=== PATIENT | female | born 1960 | race African-American/Black ===

== ENCOUNTER 2016-10-10 17:58 | Emergency (ER) | payer BC, MEDICARE ==
[2016-10-10] MEDS ORDERED: OXYCODONE-ACETAMINOPHEN 5-325 MG TABLET PO ONE (18:25)
--- NOTE | 2016-10-10 18:25 | ER Document Report ---
ED Medical Screen (RME) - General Stated Complaint: BACK PAIN Time seen by provider: 18:21 Mode of Arrival: Ambulatory Information source: Patient TRAVEL OUTSIDE OF THE [place] IN LAST 30 DAYS: No - HPI Patient complains to provider of: BACK PAIN Onset: Other - SINCE BACK SURGERY Aug.10 Onset/Duration: Constant, Worse Quality of pain: Sharp, Stabbing Severity: Severe Pain Level: 5 Associated Symptoms: None Exacerbated by: Movement, Walking Relieved by: Denies Similar symptoms previously: Yes Recently seen / treated by doctor: Yes Notes: 10/10/16 18:24 PT C/O NUMBNESS AND TINGLING DOWN BOTH LEG. PAIN RADIATES TO RIGHT BUTTOCK AND RIGHT LEG. SEEN BY SURGEON September, PAIN WAS THE SAME THEN IT IS NOW. PT WAS TO HAVE BLOOD WORK DONE OUTPATIENT BUT SHE HAS NOT HAD DONE YET. ALSO TO HAVE ANOTHER MRI. 10/10/16 18:25 10/10/16 18:26 - Related Data Smoking: Cigarettes Frequency of alcohol use: Occasional Drug Abuse: None Allergies/Adverse Reactions: Sulfa (Sulfonamide Antibiotics) Allergy (Verified 10/10/16 18:20) Past Medical History - Past Medical History Cardiac Medical History: Reports: Hx Hypercholesterolemia, Hx Hypertension Pulmonary Medical History: Reports: Hx Asthma Denies: Hx Tuberculosis Neurological Medical History: Denies: Hx Seizures Endocrine Medical History: Reports: Hx Diabetes Mellitus Type 1, Hx Diabetes Mellitus Type 2 Past Surgical History: Reports: Hx Breast Surgery, Hx Cholecystectomy, Hx Hysterectomy - Immunizations Hx Diphtheria, Pertussis, Tetanus Vaccination: Yes Physical Exam - Vital signs Vitals: Temp Pulse Resp BP Pulse Ox 97.5 F 127 H 20 143/78 H 95 10/10/16 18:09 10/10/16 18:09 10/10/16 18:09 10/10/16 18:09 10/10/16 18:09 Course - Vital Signs Vital signs: Temp Pulse Resp BP Pulse Ox 97.5 F 127 H 20 143/78 H 95 10/10/16 18:09 10/10/16 18:09 10/10/16 18:09 10/10/16 18:09 10/10/16 18:09 - Laboratory Result Diagrams: 10/10/16 18:30 10/10/16 18:30 Laboratory results interpreted by me: 10/10/16 10/10/16 18:30 18:30 WBC 13.6 H RBC 6.08 H Hgb 15.7 H Hct 47.9 H MCV 79 L MCH 25.8 L RDW 17.5 H Absolute Lymphocytes 5.1 H Potassium 5.1 H Glucose 408 H* Alkaline Phosphatase 146 H Total Protein 8.3 H
[2016-10-10 18:43] LABS: ABSOLUTE BASOPHILS # (AUTO) 0.1 10^3/uL (0.0-0.2); ABSOLUTE EOSINOPHILS # (AUTO) 0.3 10^3/uL (0.0-0.6); ABSOLUTE LYMPHOCYTES (AUTO) 5.1 10^3/uL (0.5-4.7); ABSOLUTE MONOCYTES (AUTO) 0.7 10^3/uL (0.1-1.4); ABSOLUTE NEUT (AUTO) 7.4 10^3/uL (1.7-8.2); BASOPHILS % (AUTO) 0.7 % (0-2); EOSINOPHILS % (AUTO) 2.4 % (0-6); HEMATOCRIT 47.9 % (36.0-47.0); HEMOGLOBIN 15.7 g/dL (12.0-15.5); HGB HCT DIFFERENCE -0.8; LYMPHOCYTES % (AUTO) 37.5 % (13-45); MEAN CORPUSCULAR HEMOGLOBIN 25.8 pg (27.0-33.4); MEAN CORPUSCULAR HGB CONC 32.8 g/dL (32.0-36.0); MEAN CORPUSCULAR VOLUME 79 fl (80-97); RED BLOOD COUNT 6.08 10^6/uL (3.72-5.28); RED CELL DISTRIBUTION WIDTH 17.5 % (11.5-14.0); SEGMENTED NEUTROPHILS % (AUTO) 54.4 % (42-78); WHITE BLOOD COUNT 13.6 10^3/uL (4.0-10.5)
[2016-10-10 18:55] LABS: ALANINE AMINOTRANSFERASE 23 U/L (9-52); ALBUMIN 4.3 g/dL (3.5-5.0); ALKALINE PHOSPHATASE 146 U/L (38-126); ANION GAP 16 (5-19); ASPARTATE AMINO TRANSFERASE 20 U/L (14-36); BILIRUBIN,TOTAL 0.7 mg/dL (0.2-1.3); BLOOD UREA NITROGEN 9 mg/dL (7-20); CARBON DIOXIDE 25 mmol/L (22-30); CHLORIDE 100 mmol/L (98-107); CREATININE RESULT 0.53 mg/dL (0.52-1.25); POTASSIUM 5.1 mmol/L (3.6-5.0); SODIUM 140.9 mmol/L (137-145); TOTAL PROTEIN 8.3 g/dL (6.3-8.2)
[2016-10-10 19:17] LABS: GLUCOSE 408 mg/dL (75-110)
[2016-10-10] MEDS ORDERED: NORMAL SALINE 1000 ML 1,000 ML IV ONE ×2 (19:20→19:50)
[2016-10-10] MEDS ORDERED: ONDANSETRON HCL INJ/PF 4 MG/2 ML SDV IV ONE (19:52)
[2016-10-10] MEDS ORDERED: MORPHINE SULFATE 10 MG/ML INJ IV ONE (19:52)
--- NOTE | 2016-10-10 19:52 | ER Document Report ---
ED General - General Chief Complaint: Low Back Pain Stated Complaint: BACK PAIN Time seen by provider: 19:50 Mode of Arrival: Ambulatory Notes: Patient is a 56-year-old female that comes emergency department for chief complaint of pain in her lower back with radiations of pain to her right buttocks and down her right leg. Patient states she had "back surgery" to repair a ruptured disc on August 10 2016, states that she did follow-up and states she is scheduled to get an MRI, she states she was given hydrocodone pain medication but states it makes her vomit. She was able to drink juice earlier today. She states she has not eaten much. She denies fever or chills, any new numbness or weakness, denies urinary symptoms. Past medical history type II diabetes on metformin and hypertension. TRAVEL OUTSIDE OF THE [place] IN LAST 30 DAYS: No - Related Data Allergies/Adverse Reactions: Sulfa (Sulfonamide Antibiotics) Allergy (Verified 10/10/16 18:20) Past Medical History - General Information source: Patient - Social History Smoking Status: Current Every Day Smoker Chew tobacco use (# tins/day): Yes Frequency of alcohol use: Occasional Drug Abuse: None Family History: Reviewed & Not Pertinent Patient has suicidal ideation: No Patient has homicidal ideation: No - Past Medical History Cardiac Medical History: Reports: Hx Hypercholesterolemia, Hx Hypertension Pulmonary Medical History: Reports: Hx Asthma Denies: Hx Tuberculosis Neurological Medical History: Denies: Hx Seizures Endocrine Medical History: Reports: Hx Diabetes Mellitus Type 1, Hx Diabetes Mellitus Type 2 Renal/ Medical History: Denies: Hx Peritoneal Dialysis Past Surgical History: Reports: Hx Breast Surgery, Hx Cholecystectomy, Hx Hysterectomy - Immunizations Hx Diphtheria, Pertussis, Tetanus Vaccination: Yes Hx Pneumococcal Vaccination: 07/17/13 Review of Systems - Review of Systems Constitutional: No symptoms reported EENT: No symptoms reported Cardiovascular: No symptoms reported Respiratory: No symptoms reported Gastrointestinal: See HPI Genitourinary: No symptoms reported Female Genitourinary: No symptoms reported Musculoskeletal: See HPI Skin: No symptoms reported Hematologic/Lymphatic: No symptoms reported Neurological/Psychological: No symptoms reported Physical Exam - Vital signs Vitals: Temp Pulse Resp BP Pulse Ox 97.5 F 127 H 20 143/78 H 95 10/10/16 18:09 10/10/16 18:09 10/10/16 18:09 10/10/16 18:09 10/10/16 18:09 Interpretation: Normal - General General appearance: Appears well, Alert, Anxious In distress: Mild - Patient appears uncomfortable, lying on her side - HEENT Head: Normocephalic, Atraumatic Eyes: Normal Conjunctiva: Normal Extraocular movements intact: Yes Eyelashes: Normal Pupils: PERRL Nasal: Normal Mouth/Lips: Normal Mucous membranes: Normal Pharynx: Normal Neck: Normal - Respiratory Respiratory status: No respiratory distress Chest status: Nontender Breath sounds: Normal. No: Decreased air movement, Wheezing Chest palpation: Normal - Cardiovascular Rhythm: Regular, Tachycardia Heart sounds: Normal auscultation, S1 appreciated, S2 appreciated Murmur: No - Abdominal Inspection: Normal Distension: No distension Bowel sounds: Normal Tenderness: Nontender. No: Tender, Guarding Organomegaly: No organomegaly - Back Back: Tender - Patient is tender generally in the right paralumbar musculature, right gluteal area, positive straight leg raise on the right side, no saddle anesthesia, no midline tenderness, normal distal neurovascular exam., Scars - Midline lumbar area scar, vertical - Extremities General upper extremity: Normal inspection, Nontender, Normal color, Normal ROM , Normal temperature General lower extremity: Normal inspection, Nontender, Normal color, Normal ROM , Normal temperature, Normal weight bearing. No: Radha's sign - Neurological Neuro grossly intact: Yes Cognition: Normal Orientation: AAOx4 Emilia Coma Scale Eye Opening: Spontaneous Trent Coma Scale Verbal: Oriented [place] Coma Scale Motor: Obeys Commands [place] Coma Scale Total: 15 Speech: Normal Motor strength normal: LUE, RUE, LLE, RLE Sensory: Normal - Psychological Associated symptoms: Anxious - Skin Skin Temperature: Warm Skin Moisture: Dry Skin Color: Normal Course - Re-evaluation Re-evalutation: Patient initially tachycardic, appears to be in pain, holding her right lower back and lying on her side. CBC shows elevated hemoglobin, patient has hyperglycemia, patient reports vomiting after taking the [place]. Patient given 2 L normal saline for dehydration, after this tachycardia resolved. Given insulin, blood glucose trended downwards. Patient was given pain medication, afterwards she was comfortable and ambulating without any difficulty. No neurological deficits on exam, patient admits to no new symptoms other than the pain she has been dealing with chronically after surgery. Patient has a pending MRI. Patient comfortable now, giving alternative to [place], instructed her to follow-up with her back specialist and return for any concerning symptoms. Patient states understanding and agreement. - Vital Signs Vital signs: Temp Pulse Resp BP Pulse Ox 97.4 F 99 16 153/82 H 97 10/10/16 22:10 10/10/16 22:10 10/10/16 22:10 10/10/16 22:10 10/10/16 22:10 - Laboratory Result Diagrams: 10/10/16 18:30 10/10/16 18:30 Laboratory results interpreted by me: 10/10/16 10/10/16 10/10/16 18:30 18:30 20:03 WBC 13.6 H RBC 6.08 H Hgb 15.7 H Hct 47.9 H MCV 79 L MCH 25.8 L RDW 17.5 H Absolute Lymphocytes 5.1 H Potassium 5.1 H Glucose 408 H* POC Glucose 340 H Alkaline Phosphatase 146 H Total Protein 8.3 H Urine Glucose (UA) 10/10/16 10/10/16 21:25 22:07 WBC RBC Hgb Hct MCV MCH RDW Absolute Lymphocytes Potassium Glucose POC Glucose 201 H Alkaline Phosphatase Total Protein Urine Glucose (UA) >=500 H Discharge - Discharge Clinical Impression: Dehydration, Hyperglycemia Lower back pain Qualifiers: Chronicity: chronic Back pain laterality: right Sciatica presence: with sciatica Sciatica laterality: sciatica of right side Qualified Code(s): M54.41 - Lumbago with sciatica, right side Condition: Stable Disposition: HOME, SELF-CARE Additional Instructions: Please continue to rehydrate, take your metformin. Follow-up with your MRI, take the new prescribed pain medication instead of the [place] if needed. Return to the emergency department for any concerning or worsening symptoms including uncontrollable vomiting, fever, dizziness, etc. Prescriptions: Oxycodone HCl/Acetaminophen [Percocet 5-325 mg Tablet] 1 - 2 tab PO Q4H PRN #20 tablet PRN Reason: Referrals: GONZALO BERNARD MD [Primary Care Provider] - Follow up as needed
[2016-10-10] MEDS ORDERED: INSULIN REG, HUMAN 100 UNIT/ML 3 ML VIAL (PYX) SUBCUT ONE (20:14)
[2016-10-10] MEDS ORDERED: HYDROMORPHONE HCL INJ/PF 2 MG/ML AMPULE IM ONE (21:40)
[2016-10-10 21:54] LABS: APPEARANCE,URINE CLOUDY; BILIRUBIN,URINE NEGATIVE (NEGATIVE); GLUCOSE, URINE >=500 mg/dL (NEGATIVE); KETONES,URINE NEGATIVE (NEGATIVE); LEUKOCYTE ESTERASE,URINE NEGATIVE (NEGATIVE); NITRITE,URINE NEGATIVE (NEGATIVE); PROTEIN,URINE NEGATIVE (NEGATIVE); URINE SPECIFIC GRAVITY 1.016; UROBILINOGEN,URINE NEGATIVE mg/dL (<2.0)
[2016-10-10 22:18] VITALS: BP 153/82
== END 2016-10-10 22:18 | disposition home or self-care (01) ==
LOC: ER 17:58
DX: M54.41 Lumbago with sciatica, right side (principal); G89.29 Other chronic pain; E11.65 Type 2 diabetes mellitus with hyperglycemia; E86.0 Dehydration; R00.0 Tachycardia, unspecified; I10 Essential (primary) hypertension; J45.909 Unspecified asthma, uncomplicated; F17.200 Nicotine dependence, unspecified, uncomplicated; Z79.84 Long term (current) use of oral hypoglycemic drugs; Z98.890 Other specified postprocedural states
CPT/HCPCS: 99283; 96372; 96361; 96374; 96375; 36415; 82962; 85025; 80053; 81001; J2270; J1170; J1815; J2405; J7030

== ENCOUNTER 2016-10-16 17:07 | Emergency (ER) | payer BC, MEDICARE ==
[2016-10-16] MEDS ORDERED: ACETAMINOPHEN 325 MG TABLET PO ONE (18:15)
--- NOTE | 2016-10-16 18:16 | ER Document Report ---
ED Medical Screen (RME) - General Stated Complaint: HEAD PAIN Mode of Arrival: Ambulatory Information source: Patient Notes: Patient complains of neck, leg and back pain. No fever. No new injury. Patient complains of urinary frequency. Patient ran out of her pain medication last week. hx; low back surgery for herniated disc 2 months ago I have greeted and performed a rapid initial assessment of this patient. A comprehensive ED assessment and evaluation of the patient, analysis of test results and completion of the medical decision making process will be conducted by additional ED providers. TRAVEL OUTSIDE OF THE [place] IN LAST 30 DAYS: No - Related Data Allergies/Adverse Reactions: Sulfa (Sulfonamide Antibiotics) Allergy (Verified 10/10/16 18:20) Past Medical History - Past Medical History Cardiac Medical History: Reports: Hx Hypercholesterolemia, Hx Hypertension Pulmonary Medical History: Reports: Hx Asthma Denies: Hx Tuberculosis Neurological Medical History: Denies: Hx Seizures Endocrine Medical History: Reports: Hx Diabetes Mellitus Type 1, Hx Diabetes Mellitus Type 2 Renal/ Medical History: Denies: Hx Peritoneal Dialysis Past Surgical History: Reports: Hx Breast Surgery, Hx Cholecystectomy, Hx Hysterectomy - Immunizations Hx Diphtheria, Pertussis, Tetanus Vaccination: Yes Physical Exam - Vital signs Vitals: Temp Pulse Resp BP Pulse Ox 98.2 F 104 H 18 144/110 H 96 10/16/16 18:01 10/16/16 18:01 10/16/16 18:01 10/16/16 18:01 10/16/16 18:01 - Back Back: Tender - Right lower back pain, right SI joint pain Course - Vital Signs Vital signs: Temp Pulse Resp BP Pulse Ox 98.2 F 104 H 18 144/110 H 96 10/16/16 18:01 10/16/16 18:01 10/16/16 18:01 10/16/16 18:01 10/16/16 18:01
[2016-10-16 19:43] LABS: APPEARANCE,URINE SLIGHTLY-CLOUDY; BILIRUBIN,URINE NEGATIVE (NEGATIVE); GLUCOSE, URINE >=500 mg/dL (NEGATIVE); KETONES,URINE TRACE mg/dL (NEGATIVE); LEUKOCYTE ESTERASE,URINE NEGATIVE (NEGATIVE); NITRITE,URINE NEGATIVE (NEGATIVE); PROTEIN,URINE NEGATIVE (NEGATIVE); URINE SPECIFIC GRAVITY 1.016; UROBILINOGEN,URINE NEGATIVE mg/dL (<2.0)
[2016-10-16 21:51] VITALS: BP 155/103
--- NOTE | 2016-10-16 21:52 | ER Document Report ---
ED General - General Chief Complaint: Pain All Over Stated Complaint: HEAD PAIN Time seen by provider: 21:47 Mode of Arrival: Ambulatory Information source: Patient Notes: 56-year-old female presents to ED for pain all over. She states she has a history of chronic back pain leg pain. Much pain all over and [facility] and follow- up with them concerning her chronic pain. She was seen in the emergency room on October 10 and received 20 Percocet which she said she has used all of and she cannot get into her doctor yet. No new or acute problems at this time. States she's not drinking enough water. TRAVEL OUTSIDE OF THE [place] IN LAST 30 DAYS: No - HPI Onset: Other - Chronic Onset/Duration: Persistent Quality of pain: Sharp Severity: Severe Pain Level: 5 Associated symptoms: Nonproductive cough, Other - Body aches all over head back neck legs Exacerbated by: Movement, Walking, Coughing Relieved by: Denies Similar symptoms previously: Yes Recently seen / treated by doctor: Yes - Related Data Allergies/Adverse Reactions: Sulfa (Sulfonamide Antibiotics) Allergy (Verified 10/10/16 18:20) Past Medical History - General Information source: Patient - Social History Smoking Status: Current Every Day Smoker Cigarette use (# per day): Yes - 2 packs a day Chew tobacco use (# tins/day): No Smoking Education Provided: Yes - less than 2 minutes Frequency of alcohol use: None Drug Abuse: None Lives with: Family Family History: Reviewed & Not Pertinent Patient has suicidal ideation: No Patient has homicidal ideation: No - Past Medical History Cardiac Medical History: Reports: Hx Hypercholesterolemia, Hx Hypertension Pulmonary Medical History: Reports: Hx Asthma Neurological Medical History: Reports: None Endocrine Medical History: Reports: Hx Diabetes Mellitus Type 2 Renal/ Medical History: Reports: None Malignancy Medical History: Reports: None GI Medical History: Reports: None Musculoskeltal Medical History: Reports Hx Arthritis, Reports Hx Musculoskeletal Deformity, Reports Hx Musculoskeletal Trauma Skin Medical History: Reports None Psychiatric Medical History: Reports: None Traumatic Medical History: Reports: None Infectious Medical History: Reports: None Past Surgical History: Reports: Hx Breast Surgery, Hx Cholecystectomy, Hx Hysterectomy - Immunizations Hx Diphtheria, Pertussis, Tetanus Vaccination: Yes Hx Pneumococcal Vaccination: 07/17/13 Review of Systems - Review of Systems Constitutional: No symptoms reported EENT: No symptoms reported Cardiovascular: No symptoms reported Respiratory: No symptoms reported Gastrointestinal: No symptoms reported Genitourinary: No symptoms reported Female Genitourinary: No symptoms reported Musculoskeletal: Back pain, Other - Body aches all over chronic pain and chronic back pain neck pain and headache Skin: No symptoms reported Hematologic/Lymphatic: No symptoms reported Neurological/Psychological: No symptoms reported Physical Exam - Vital signs Vitals: Temp Pulse Resp BP Pulse Ox 98.2 F 104 H 18 144/110 H 96 10/16/16 18:01 10/16/16 18:01 10/16/16 18:01 10/16/16 18:01 10/16/16 18:01 Interpretation: Normal - Discussed with patient she states she does not usually have high blood pressure except for when she's has pain. Instructed patient to follow-up with Damián Mercedes - General General appearance: Appears well, Alert - HEENT Head: Normocephalic, Atraumatic Eyes: Normal Pupils: PERRL - Respiratory Respiratory status: No respiratory distress Chest status: Nontender Breath sounds: Normal Chest palpation: Normal - Cardiovascular Rhythm: Regular Heart sounds: Normal auscultation Murmur: No - Abdominal Inspection: Normal Distension: No distension Bowel sounds: Normal Tenderness: Nontender Organomegaly: No organomegaly - Back Back: Normal, Tender, Vertebra tenderness - swelling under the surgical site that patient states has been like this since her last surgery in august,. No: Deformity/step-off, CVA tenderness, Scoliosis, Wounds - Extremities General upper extremity: Normal inspection, Nontender, Normal color, Normal ROM , Normal temperature General lower extremity: Normal inspection, Normal color, Normal ROM, Normal temperature, Normal weight bearing. No: Radha's sign - Neurological Neuro grossly intact: Yes Cognition: Normal Orientation: AAOx4 [place] Coma Scale Eye Opening: Spontaneous Emilia Coma Scale Verbal: Oriented [place] Coma Scale Motor: Obeys Commands Emilia Coma Scale Total: 15 Speech: Normal Motor strength normal: LUE, RUE, LLE, RLE Sensory: Normal - Psychological Associated symptoms: Normal affect, Normal mood - Skin Skin Temperature: Warm Skin Moisture: Dry Skin Color: Normal Course - Re-evaluation Re-evalutation: 10/16/16 22:[address] Slade due to swelling under surgical site with her back pain. Dr. Slade came and examined the patient discussed a history of the swelling to the with the patient. Patient states she has a MRI scheduled for November 15 which is in 2 days. Patient was given Percocet in the ED and a prescription for Percocet and instructed to call her back surgeon and her primary doctor tomorrow back surgeon for more pain medicine the primary doctor for high blood pressure. - Vital Signs Vital signs: Temp Pulse Resp BP Pulse Ox 98.2 F 97 16 155/103 H 98 10/16/16 21:50 10/16/16 21:50 10/16/16 21:50 10/16/16 21:50 10/16/16 21:50 - Laboratory Laboratory results interpreted by me: 10/16/16 18:35 Urine Glucose (UA) >=500 H Urine Ketones TRACE H Urine Blood SMALL H Discharge - Discharge Clinical Impression: Chronic pain Qualifiers: Chronic pain type: chronic pain syndrome Qualified Code(s): G89.4 - Chronic pain syndrome Chronic back pain Qualifiers: Back pain location: low back pain Back pain laterality: unspecified Sciatica presence: with sciatica Sciatica laterality: bilateral sciatica Qualified Code(s ): M54.41 - Lumbago with sciatica, right side Condition: Stable Disposition: HOME, SELF-CARE Additional Instructions: Chronic Pain Control Stress, inactivity, and depression make pain more severe regardless of the cause of the pain. Stress and poor physical condition can cause pain such as headaches and backache. Relaxation: Rest in a quiet place with your eyes closed for 20 minutes twice daily. Concentrate on a pleasant image, or simply "feel" your breathing. Clear your mind. Stress management: Deal with your "stressors." Either take action, or eliminate the stressor from your life. Don't let things hang over you. Accept those things you can't change. Nutrition: Eat small, balanced meals -- don't skip, don't overeat. Meals should be high-carbohydrate, low-sugar, low-fat. Exercise: Exercise helps painful conditions and eases stress. Get 30 minutes of moderate exercise, five days a week. Do an activity that does not flare your pain. Precautions: Pain which continues to disrupt daily activities, or which changes in nature, requires a medical evaluation. Pain Clinic referral is available. We do not manage chronic pain in the Emergency Department. We will try to appropriately help you through an acute flare of your chronic painful condition , but for on-going chronic pain that does not improve, you will need to see your private doctor or spray i painter. We do not provide repeated medication management of chronic painful conditions. If you wish, we can provide the name of local pain management physicians. LOW BACK PAIN: Three out of every four people will have an episode of disabling back pain during their lifetime. Most commonly the pain is due to straining of the muscles and ligaments in the low back. Usual treatment includes: (1) Rest on a firm surface. Avoid lying on your stomach. (2) Ice pack the painful area. After a few days, gentle heat may be used intermittently to relax the area, or ice packs can be continued. (3) Medication may be needed -- muscle relaxers and antiinflammatory medicines are commonly used. (4) As the back improves, exercises are prescribed to strengthen the back and abdominal muscles. Your doctor will advise you on the proper care for your back at each stage in your recovery. You may be better in a few days -- or healing may take several weeks. If new symptoms of a "herniated disc" (radiation of pain, numbness, or tingling down the back of the leg or weakness in the leg) occur, you should be re-examined. Further testing may be necessary. Headache The physician does not feel that the headache you are experiencing has a serious underlying cause. Most headaches are due to emotional stress, with resultant muscle tension (tension headache). Occasionally, headaches are secondary to changes in the blood vessels of the scalp (vascular headache and migraine headache). Sometimes, a headache is the first symptom of another developing illness, such as a viral infection. You have no evidence of stroke, bleeding, meningitis, or other serious cause of your headache. The treatment of headaches varies with the severity and cause of the pain. Not all headaches need pain shots. In fact, there is evidence that using narcotics for headaches may make them worse in the long run. The physician will determine the therapy that's in your best interest. If you develop a fever, if the headache is different from any you've previously experienced, or if the headache progressively worsens, then call your physician at once or go to the emergency room. ORAL NARCOTIC MEDICATION: You have been given a prescription for pain control. This medication is a narcotic. It's best taken with food, as nausea can result if taken on an empty stomach. Don't operate machinery or drive within six hours of taking this medication. Do not combine this medicine with alcohol, or with any medication which can cause sedation (such as cold tablets or sleeping pills) unless you get permission from the physician. Narcotics tend to cause constipation. If possible, drink plenty of fluids and eat a diet high in fiber and fruits. Please be aware that prescription narcotics also have the potential for abuse. People become addicted to these medications because of the general sense of wellbeing that they induce. This feeling along with a significant reduction in tension, anxiety, and aggression provides a stimulating seductive quality to these drugs. Once your pain is under control, we encourage you to discard your unused narcotics. ICE PACKS: Apply ice packs frequently against the painful area. Many different schedules are recommended, such as "20 minutes on, 20 minutes off" or "one hour ice, two hours rest." If you need to work, you may need to go longer between ice treatments. You should plan to have the area ice packed AT LEAST one fourth of the time. The ice should be applied over the wrap, tape, or splint, or over a layer of cloth -- not directly against the skin. Some ice bags have a built-in cloth and can be put directly on the skin. WARM PACKS: After approximately two days, apply gentle heat (such as a heating pad or hot water bottle) for about 20 to 30 minutes about every two hours -- at least four times daily. Warmth and elevation will help you make a more rapid recovery , and will ease the pain considerably. Do not use HOT heat, and never apply heat for longer than 30 minutes. The continuous heat can invisibly damage skin and muscles -- even when no burn is seen on the surface. Damaged muscles can make you MORE sore. FOLLOW-UP CARE: If you have been referred to a physician for follow-up care, call the physician s office for an appointment as you were instructed or within the next two days. If you experience worsening or a significant change in your symptoms, notify the physician immediately or return to the Emergency Department at any time for re-evaluation. Prescriptions: Oxycodone HCl/Acetaminophen [Percocet 5-325 mg Tablet] 1 tab PO Q6HP PRN #15 tablet PRN Reason: Forms: Elevated Blood Pressure, Smoking Cessation Education Referrals: GONZALO BERNARD MD [ACTIVE STAFF] - Follow up as needed
[2016-10-16] MEDS ORDERED: OXYCODONE-ACETAMINOPHEN 5-325 MG TABLET PO ONE (21:56)
== END 2016-10-16 22:07 | disposition home or self-care (01) ==
LOC: ER 17:07
DX: G89.4 Chronic pain syndrome (principal); M54.41 Lumbago with sciatica, right side; M54.42 Lumbago with sciatica, left side; R22.2 Localized swelling, mass and lump, trunk; Z98.890 Other specified postprocedural states; R51 Headache; M54.2 Cervicalgia; I10 Essential (primary) hypertension; J45.909 Unspecified asthma, uncomplicated; E11.9 Type 2 diabetes mellitus without complications; F17.210 Nicotine dependence, cigarettes, uncomplicated; Z71.6 Tobacco abuse counseling; Z88.2 Allergy status to sulfonamides
CPT/HCPCS: 81001; 99283

== ENCOUNTER 2017-11-19 10:13 | Emergency (ER) | payer BC, MEDICARE ==
[2017-11-19] MEDS ORDERED: TRAMADOL HCL 50 MG TABLET PO ONE (10:46)
[2017-11-19 11:15] LABS: ABSOLUTE BASOPHILS # (AUTO) 0.1 10^3/uL (0.0-0.2); ABSOLUTE EOSINOPHILS # (AUTO) 0.2 10^3/uL (0.0-0.6); ABSOLUTE LYMPHOCYTES (AUTO) 4.2 10^3/uL (0.5-4.7); ABSOLUTE MONOCYTES (AUTO) 0.5 10^3/uL (0.1-1.4); EOSINOPHILS % (AUTO) 1.6 % (0-6); HEMATOCRIT 47.3 % (36.0-47.0); HEMOGLOBIN 15.5 g/dL (12.0-15.5); LYMPHOCYTES % (AUTO) 38.3 % (13-45); MEAN CORPUSCULAR HEMOGLOBIN 25.5 pg (27.0-33.4); MEAN CORPUSCULAR HGB CONC 32.8 g/dL (32.0-36.0); MEAN CORPUSCULAR VOLUME 78 fl (80-97); MONOCYTES % (AUTO) 4.2 % (3-13); PLATELET COUNT 319 10^3/uL (150-450); RED BLOOD COUNT 6.07 10^6/uL (3.72-5.28); RED CELL DISTRIBUTION WIDTH 16.7 % (11.5-14.0); SEGMENTED NEUTROPHILS % (AUTO) 54.9 % (42-78); TOTAL CELLS COUNTED % (AUTO) 100 %
[2017-11-19 11:33] LABS: ANION GAP 12 (5-19); BLOOD UREA NITROGEN 13 mg/dL (7-20); CARBON DIOXIDE 22 mmol/L (22-30); CHLORIDE 103 mmol/L (98-107); CREATINE KINASE 50 U/L (30-135); GLUCOSE 387 mg/dL (75-110); POTASSIUM 4.7 mmol/L (3.6-5.0); SODIUM 136.7 mmol/L (137-145)
--- NOTE | 2017-11-19 12:09 | ER Document Report ---
ED Extremity Problem, Lower - General Chief Complaint: Leg Pain Stated Complaint: LEG PAIN Time Seen by Provider: 11/19/17 10:36 Mode of Arrival: Ambulatory Information source: Patient Notes: Patient presents claiming bilateral leg pain. She states that the whole leg hurts on both sides. She denies knowledge of anything that makes it better or worse. She denies any significant swelling or rashes. No known trauma. No fevers. The pain does radiate up both legs. It is a constant aching pain. TRAVEL OUTSIDE OF THE [place] IN LAST 30 DAYS: No - Related Data Allergies/Adverse Reactions: Sulfa (Sulfonamide Antibiotics) Allergy (Verified 11/19/17 10:15) Past Medical History - General Information source: Patient - Social History Smoking Status: Current Every Day Smoker Chew tobacco use (# tins/day): No Frequency of alcohol use: None Drug Abuse: None Family History: Reviewed & Not Pertinent Patient has suicidal ideation: No Patient has homicidal ideation: No - Past Medical History Cardiac Medical History: Reports: Hx Hypercholesterolemia, Hx Hypertension Pulmonary Medical History: Reports: Hx Asthma Denies: Hx Tuberculosis Neurological Medical History: Denies: Hx Seizures Endocrine Medical History: Reports: Hx Diabetes Mellitus Type 1, Hx Diabetes Mellitus Type 2 Renal/ Medical History: Denies: Hx Peritoneal Dialysis Musculoskeltal Medical History: Reports Hx Arthritis, Reports Hx Musculoskeletal Deformity, Reports Hx Musculoskeletal Trauma Past Surgical History: Reports: Hx Breast Surgery, Hx Cholecystectomy, Hx Hysterectomy - Immunizations Hx Diphtheria, Pertussis, Tetanus Vaccination: Yes Hx Pneumococcal Vaccination: 07/17/13 Review of Systems - Review of Systems Constitutional: denies: Chills, Fever Cardiovascular: denies: Chest pain, Palpitations Respiratory: denies: Cough, Short of breath -: Yes All other systems reviewed and negative Physical Exam - Vital signs Vitals: Temp Pulse Resp BP Pulse Ox 98.1 F 99 20 123/73 97 11/19/17 10:24 11/19/17 10:24 11/19/17 10:24 11/19/17 10:24 11/19/17 10:24 Interpretation: Normal - General General appearance: Appears well, Alert In distress: None - HEENT Head: Normocephalic, Atraumatic Eyes: Normal Pupils: PERRL - Respiratory Respiratory status: No respiratory distress Chest status: Nontender Breath sounds: Normal Chest palpation: Normal - Cardiovascular Rhythm: Regular Heart sounds: Normal auscultation Murmur: No - Abdominal Inspection: Normal Distension: No distension Bowel sounds: Normal Tenderness: Nontender Organomegaly: No organomegaly - Back Back: Normal, Nontender - Extremities General upper extremity: Normal inspection, Nontender, Normal color, Normal ROM , Normal temperature General lower extremity: Normal inspection, Nontender, Normal color, Normal ROM , Normal temperature, Normal weight bearing. No: Radha's sign - Neurological Neuro grossly intact: Yes Cognition: Normal Orientation: AAOx4 [place] Coma Scale Eye Opening: Spontaneous [place] Coma Scale Verbal: Oriented [place] Coma Scale Motor: Obeys Commands Emilia Coma Scale Total: 15 Speech: Normal Motor strength normal: LUE, RUE, LLE, RLE Sensory: Normal - Psychological Associated symptoms: Normal affect, Normal mood - Skin Skin Temperature: Warm Skin Moisture: Dry Skin Color: Normal Course - Re-evaluation Re-evalutation: 11/19/17 12:09 pt states she does not take her medicines every day but says she understands she needs to. Pt educated about need to take diabetic meds and consequences of not taking them. - Vital Signs Vital signs: Temp Pulse Resp BP Pulse Ox 98.1 F 99 20 123/73 97 11/19/17 10:24 11/19/17 10:24 11/19/17 10:24 11/19/17 10:24 11/19/17 10:24 - Laboratory Result Diagrams: 11/19/17 11:00 11/19/17 11:00 Laboratory results interpreted by me: 11/19/17 11/19/17 11:00 11:00 WBC 11.0 H RBC 6.07 H Hct 47.3 H MCV 78 L MCH 25.5 L RDW 16.7 H Sodium 136.7 L Creatinine 0.47 L Glucose 387 H Discharge - Discharge Clinical Impression: Hyperglycemia Condition: Stable Disposition: HOME, SELF-CARE Instructions: Hyperglycemia ([facility]) Additional Instructions: Your blood sugar is not being controlled with your current medications. You need to call your primary doctor as soon as possible to discuss how to better control your blood sugars. Please take your diabetes medicines as prescribed. It appears that your leg pain is most likely due to complications from her diabetes. This is why it is very important that you get a hold of your doctor as soon as possible to get better control of your blood sugars. If you do not get better control your blood sugars this can lead to strokes, heart attacks, blindness, kidney failure, and . Prescriptions: Tramadol HCl [Ultram 50 mg Tablet] 50 mg PO Q4HP PRN #12 tab PRN Reason: Forms: Return to Work Referrals: GONZALO BERNARD MD [ACTIVE STAFF] - Follow up tomorrow
[2017-11-19 12:21] VITALS: BP 125/84
== END 2017-11-19 12:16 | disposition home or self-care (01) ==
LOC: ER 10:13
DX: E11.65 Type 2 diabetes mellitus with hyperglycemia (principal); T50.906A Underdosing of unspecified drugs, medicaments and biological substances, initial encounter; Z91.128 Patient's intentional underdosing of medication regimen for other reason; Z91.14 Patient's other noncompliance with medication regimen; M79.604 Pain in right leg; M79.605 Pain in left leg; I10 Essential (primary) hypertension; J45.909 Unspecified asthma, uncomplicated; F17.200 Nicotine dependence, unspecified, uncomplicated; Z88.2 Allergy status to sulfonamides
CPT/HCPCS: 36415; 80048; 82550; 85025; 99283

== ENCOUNTER 2019-12-20 22:29 | Inpatient (IN) | payer BC, MEDICARE ==
[2019-12-20] MEDS ORDERED: PIPERACILLIN/TAZOBACTAM 3.375 GM VIAL IV ONE (23:01)
[2019-12-20] MEDS ORDERED: NORMAL SALINE 1000 ML 1,000 ML IV ONE (23:02)
[2019-12-20] MEDS ORDERED: VANCOMYCIN HCL INJ 1000 MG VIAL IV ONE (23:02)
[2019-12-20 23:14] LABS: INTERNATIONAL RATION (INR) 1.47
[2019-12-20 23:22] LABS: ALBUMIN 3.6 g/dL (3.5-5.0); ALKALINE PHOSPHATASE 335 U/L (38-126); ASPARTATE AMINO TRANSFERASE 33 U/L (14-36); BILIRUBIN,DIRECT 0.5 mg/dL (0.0-0.4); BILIRUBIN,TOTAL 0.5 mg/dL (0.2-1.3); BLOOD UREA NITROGEN 28 mg/dL (7-20); CALCIUM 10.3 mg/dL (8.4-10.2); CHLORIDE 103 mmol/L (98-107); POTASSIUM 3.9 mmol/L (3.6-5.0); TOTAL PROTEIN 7.8 g/dL (6.3-8.2)
--- NOTE | 2019-12-20 23:25 | ER Document Report ---
ED General - General Chief Complaint: High Blood Sugar Stated Complaint: HYPERGLYCEMIA Time Seen by Provider: 12/20/19 22:52 Mode of Arrival: Medic Information source: Emergency Med Personnel Notes: This 59-year-old woman presents to the emergency department with a history of apparently lying in bed for the past 2days became poorly responsive and abnormal breathing with a foul-smelling drainage from an area on her left posterior thigh. She was sent to the emergency department by EMS blood sugar reading "high". TRAVEL OUTSIDE OF THE [place] IN LAST 30 DAYS: No - Related Data Allergies/Adverse Reactions: Sulfa (Sulfonamide Antibiotics) Allergy (Verified 11/19/17 10:15) Past Medical History - Social History Smoking Status: Unknown if Ever Smoked Family History: Reviewed & Not Pertinent - Past Medical History Cardiac Medical History: Reports: Hx Hypercholesterolemia, Hx Hypertension Pulmonary Medical History: Reports: Hx Asthma Denies: Hx Tuberculosis Neurological Medical History: Denies: Hx Seizures Endocrine Medical History: Reports: Hx Diabetes Mellitus Type 1, Hx Diabetes Mellitus Type 2 Renal/ Medical History: Denies: Hx Peritoneal Dialysis Musculoskeletal Medical History: Reports Hx Arthritis, Reports Hx Musculoskeletal Deformity, Reports Hx Musculoskeletal Trauma Past Surgical History: Reports: Hx Breast Surgery, Hx Cholecystectomy, Hx Hysterectomy - Immunizations Hx Diphtheria, Pertussis, Tetanus Vaccination: Yes Hx Pneumococcal Vaccination: 07/17/13 Review of Systems - Review of Systems -: Yes ROS unobtainable due to patient's medical condition - Patient is unresponsive, does not respond to name being called and nonverba Physical Exam - Vital signs Vitals: Resp Pulse Ox 23 H 96 12/20/19 22:32 12/20/19 22:32 - Notes Notes: PHYSICAL EXAMINATION: Physical Exam: General: Obtunded ill-appearing 59-year-old woman obvious kussmaul breathing HEENT: NC/AT, pupils equal round and reactive to light, MM dry,nares clear, oropharynx clear, airway patent Neck: supple, no adenopathy, no masses. Good range of motion, no stiffness Lungs: clear, no wheezing, no rales no rhonchi CVS: Tachycardic rate and rhythm no murmur gallop or rub Abdomen: Soft, active, nontender, no masses, no hepatosplenomegaly Ext: Area under the left proximal thigh below the buttock with a necrotic breakdown of tissue dark brownish-black foul-smelling drainage, + crepitus Neuro: Obtunded, no purposeful movements Skin: Left posterior thigh wound as described above PSYCH: Unable to assess. Course - Re-evaluation Re-evalutation: 12/21/19 00:54 Patient noted to be hypothermic with obtundation and a wound on the posterior thigh which is concerning for a necrotizing fasciitis, gas gangrene. She is a diabetic who kussmaul breathing suggests significant metabolic acidosis., Blood sugar reads high, likely diabetic ketoacidosis. IV fluids 3 L ordered, blood cultures sepsis evaluation performed, lactate blood cultures, IV fluids 3 L, Zosyn 3.375 g, vancomycin [address] scan of the area of concern is being performed. If confirmed is a area of gas, surgical consultation, machine milker involvement. Insulin bolus 10 units, insulin drip, patient's pH 6.9, 2 ampules sodium bicarb ordered. Blood pressure continues to be stable. 12/21/19 01:03 I have contacted the , Mr. Jon Javier, he states that his had a rising on her left thigh area, it was real big and painful. For the past 2 days she has not been eating well and today she became less responsive, tonight stop communicating. This is when he called 911. States that she uses metformin 1000 milligrams twice a day. I have explained to him that his is critically ill with diabetic ketoacidosis and likely sepsis with an infected wound which could be necrotizing. I am waiting the results of the CT scan, she will require hospitalization and intensive care with a possibility of emergent surgery. I have explained that I will contact him once we have final results and a plan. He acknowledges understanding this discussion and will await follow-up. 12/21/19 01:31 I have contacted the general surgeon, Dr. Jackson, relayed my concerns regarding left thigh infection with tracking of what appears to be gas tracking in the tissue. Also contacted the provider for the intensive care services, will see patient in the emergency department. 12/21/19 02:21 Tray Server provider note he would like to have the patient intubated before going up to the ICU. Patient is intubated in the emergency department, post intubation x-ray reveals bilateral patchy infiltrative findings. Given these findings, COVID-19 evaluation/precautions are being taken. I have contacted the family, informing them that Ms. Javier is being taken to the ICU at [facility], likely surgery is to be performed as well as, she is now intubated and on a ventilator. Daughter and state that they would like to be kept abreast of her status, they realize he cannot visit due to the pandemic circumstances. - Vital Signs Vital signs: Temp Pulse Resp BP Pulse Ox 23 H 156/133 H 100 12/20/19 23:01 12/20/19 23:01 12/20/19 23:01 - Laboratory Result Diagrams: 12/20/19 23:11 12/20/19 22:35 Laboratory results interpreted by me: 12/20/19 12/20/19 12/20/19 22:35 22:35 22:35 WBC RBC Hct MCH MCHC RDW Lymphocytes % (Manual) Myelocytes % Promyelocytes % Abs Neuts (Manual) Abs Monocytes (Manual) PT 18.0 H Carbonic Acid ABG pH ABG pCO2 ABG HCO3 ABG Total CO2 ABG O2 Saturation Carbon Dioxide < 10 L* BUN 28 H Creatinine 1.33 H Est GFR ( Amer) 49 L Est GFR (MDRD) Non-Af 41 L Glucose 659 H* Lactic Acid 3.1 H Calcium 10.3 H Magnesium Direct Bilirubin 0.5 H Alkaline Phosphatase 335 H Urine Protein Urine Glucose (UA) Urine Ketones Urine Blood 12/20/19 12/20/19 12/20/19 22:35 22:35 22:50 WBC RBC Hct MCH MCHC RDW Lymphocytes % (Manual) Myelocytes % Promyelocytes % Abs Neuts (Manual) Abs Monocytes (Manual) PT 17.2 H Carbonic Acid ABG pH ABG pCO2 ABG HCO3 ABG Total CO2 ABG O2 Saturation Carbon Dioxide BUN Creatinine Est GFR ( Amer) Est GFR (MDRD) Non-Af Glucose Lactic Acid Calcium Magnesium 3.5 H Direct Bilirubin Alkaline Phosphatase Urine Protein 100 H Urine Glucose (UA) >=500 H Urine Ketones 80 H Urine Blood MODERATE H 12/20/19 12/21/19 23:11 00:09 WBC 37.1 H* RBC 5.66 H Hct 48.7 H MCH 26.8 L MCHC 31.1 L RDW 18.3 H Lymphocytes % (Manual) 10 L Myelocytes % 1 H Promyelocytes % 1 H Abs Neuts (Manual) 29.3 H Abs Monocytes (Manual) 3.7 H PT Carbonic Acid 0.58 L ABG pH 6.94 L* ABG pCO2 19.3 L* ABG HCO3 4.1 L ABG Total CO2 4.7 L ABG O2 Saturation 91.3 L Carbon Dioxide BUN Creatinine Est GFR ( Amer) Est GFR (MDRD) Non-Af Glucose Lactic Acid Calcium Magnesium Direct Bilirubin Alkaline Phosphatase Urine Protein Urine Glucose (UA) Urine Ketones Urine Blood I have reviewed laboratory data and used this information for the treatment decisions regarding the patient. - Diagnostic Test Radiology reviewed: Image reviewed, Reports reviewed - Chest x-ray: Fluffy density noted in the left lung field, etiology CT abdomen and pelvis: Left pos terior medial upper thigh with emphysematous changes and edema gas bubbles noted in the tissue question of necrotizing fasciitis/gas gangrene. - EKG Interpretation by Me Rate: Tachycardia - Rate of 114, right axis deviation, borderline prolonged QT interval. Critical Care Note - Critical Care Note Total time excluding time spent on procedures (mins): 60 - Critical care time spent obtaining history from patient or surrogate, discussions with consultants, development of treatment plan with patient or surrogate, evaluation of patient's response to treatment, examination of patient, ordering and performing treatments and interventions, ordering and review of laboratory studies, re-evaluation of patient's condition, ordering and review of radiographic studies and review of old charts Discharge - Discharge Clinical Impression: Necrotizing subcutaneous infection, Abscess of left thigh DKA (diabetic ketoacidoses) Qualifiers: Diabetes mellitus type: other specified (including AVANI) Diabetes mellitus complication detail: without coma Qualified Code(s): E13.10 - Other specified diabetes mellitus with ketoacidosis without coma Sepsis Qualifiers: Sepsis type: sepsis due to unspecified organism Sepsis acute organ dysfunction status: unspecified Qualified Code(s): A41.9 - Sepsis, unspecified organism Leukocytosis Qualifiers: Leukocytosis type: bandemia Qualified Code(s): D72.825 - Bandemia Hypothermia Qualifiers: Encounter type: initial encounter Qualified Code(s): T68.XXXA - Hypothermia, initial encounter Condition: Critical Disposition: ADMITTED INPATIENT Admitting Provider: Jorge (Tray Server) Unit Admitted: ICU
[2019-12-20 23:40] LABS: APPEARANCE,URINE CLOUDY; BILIRUBIN,URINE NEGATIVE (NEGATIVE); COLOR,URINE YELLOW; GLUCOSE, URINE >=500 mg/dL (NEGATIVE); KETONES,URINE 80 mg/dL (NEGATIVE); PROTEIN,URINE 100 mg/dL (NEGATIVE); URINE SPECIFIC GRAVITY 1.021; UROBILINOGEN,URINE NEGATIVE mg/dL (<2.0)
[2019-12-20] MEDS ORDERED: NORMAL SALINE 1000 ML 2,000 ML IV ONE (23:50)
[2019-12-20 23:51] LABS: HEMATOCRIT 48.7 % (36.0-47.0); HEMOGLOBIN 15.2 g/dL (12.0-15.5); MEAN CORPUSCULAR HEMOGLOBIN 26.8 pg (27.0-33.4); MEAN CORPUSCULAR HGB CONC 31.1 g/dL (32.0-36.0); MEAN CORPUSCULAR VOLUME 86 fl (80-97); PLATELET COUNT 432 10^3/uL (150-450); RED BLOOD COUNT 5.66 10^6/uL (3.72-5.28); RED CELL DISTRIBUTION WIDTH 18.3 % (11.5-14.0)
[2019-12-21] LABS: GLUCOSE 659 mg/dL (75-110)
[2019-12-21 00:01] LABS: CARBON DIOXIDE < 10 mmol/L (22-30)
[2019-12-21 00:07] LABS: WHITE BLOOD COUNT 37.1 10^3/uL (4.0-10.5)
[2019-12-21] MEDS ORDERED: INSULIN REG, HUMAN 100 UNIT/ML 3 ML VIAL (PYX) IV ONE (00:08)
[2019-12-21 00:10] LABS: INTERNATIONAL RATION (INR) 1.39; PROTHROMBIN TIME 17.2 SEC (11.4-15.4)
[2019-12-21] MEDS ORDERED: DEXTROSE 50%-WATER 25 GM/50 ML DISP.SYRIN IV PRN ×6 (00:10→06:47)
[2019-12-21] MEDS ORDERED: DEXTROSE 40% GEL 15 GM TUBE PO PRN ×6 (00:10→06:47)
[2019-12-21] MEDS ORDERED: GLUCAGON,HUMAN RECOMB 1 MG INJ IM PRN ×2 (00:10→06:47)
[2019-12-21 00:11] LABS: PARTIAL THROMBOPLASTIN TIME 25.7 SEC (23.5-35.8)
--- NOTE | 2019-12-21 00:13 | RADIOLOGY REPORT (SQ) ---
CLINICAL INDICATION: Sepsis. TECHNIQUE: A single portable AP view was obtained of the chest at 2306 hours. COMPARISON: None. FINDINGS: The cardiomediastinal silhouette is prominent. The lungs demonstrate chronic interstitial change. Superimposed alveolar space disease left lung base. No evidence of effusion or pneumothorax. The visualized bones are unremarkable. IMPRESSION: Fluffy alveolar space disease left lung base, likely infectious inflammatory.
[2019-12-21 00:16] LABS: ABSOLUTE LYMPHOCYTES# (MANUAL) 4.1 10^3/uL (0.5-4.7); ABSOLUTE MONOCYTES # (MANUAL) 3.7 10^3/uL (0.1-1.4); BAND NEUTROPHILS % (MANUAL) 5 % (3-5); BASOPHILS % (MANUAL) 0 % (0-2); EOSINOPHILS % (MANUAL) 0 % (0-6); LYMPHOCYTES % (MANUAL) 10 % (13-45); MONOCYTES % (MANUAL) 10 % (3-13); SEGMENTED NEUTROPHILS % (MAN) 72 % (42-78); TOTAL CELLS COUNTED 100
[2019-12-21 00:17] LABS: TOXIC GRANULATION 1+; TOXIC VACUOLATION PRESENT
[2019-12-21 00:19] LABS: ANISOCYTOSIS 1+; BURR CELLS SLIGHT; OVALOCYTES SLIGHT; POIKILOCYTOSIS 1+
[2019-12-21 00:20] LABS: HYPOCHROMASIA SLIGHT; PLATELET COMMENT ADEQUATE; TEAR DROP CELLS SLIGHT
[2019-12-21 00:21] LABS: MYELOCYTES % (MANUAL) 1 % (0); PROMYELOCYTES % (MANUAL) 1 % (0)
[2019-12-21 00:21] LABS: ARTERIAL BLOOD BASE EXCESS -26.9 mmol/L; ARTERIAL BLOOD H2CO3 0.58 mmol/L (1.05-1.35); ARTERIAL BLOOD HCO3 4.1 mmol/L (20-24); ARTERIAL BLOOD O2 SATURATION 91.3 % (94-98); ARTERIAL BLOOD PO2 92.9 mmHg (80-100); ARTERIAL BLOOD TOTAL CO2 4.7 mmol/L (21-25)
[2019-12-21 00:23] LABS: ARTERIAL BLOOD FIO2 4L
[2019-12-21 00:24] LABS: ARTERIAL BLOOD PCO2 19.3 mmHg (35-45); ARTERIAL BLOOD PH 6.94 (7.35-7.45)
[2019-12-21] MEDS ORDERED: SODIUM BICARBONATE 8.4% INJ 50 MEQ/50 ML DISP.SYRIN IV ONE ×3 (00:35→18:00)
--- NOTE | 2019-12-21 01:36 | RADIOLOGY REPORT (SQ) ---
EXAM DESCRIPTION: CT ABDOMEN PELVIS WITH IV CONTRAST COMPLETED DATE/TME: 12/20/2019 23:13 CLINICAL HISTORY: 59 years Female, Right upper thigh/buttock draining wound Comparison: CR, chest, 12/20/19. Technique: IV contrast. Coronal and sagittal reformat. This exam was performed according to our departmental dose-optimization program, which includes automated exposure control, adjustment of the mA and/or kV according to patient size and/or use of iterative reconstruction technique. [facility]: Dose Right [facility]: CareDose [facility]: Dose Right [facility]: Teradose 4D [facility]: [email or web address] LIMITATIONS: Motion artifact. 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 Arterial flow reconstitutes at the level of the left external iliac artery. Immediate Surgical referral advised. Moderate patchy airspace opacities of the partially imaged lower lung. Differential etiologies include infectious, inflammatory, and neoplastic processes. Recommend CR/CT surveillance including at 7-12 weeks following initiation of any clinically warranted therapy. 10 x 8 x 5 cm subcutaneous emphysema and edema of the posterior medial left upper leg. Advanced infectious etiology suspected. Gas bubbles could be due to advanced necrotizing component or iatrogenic. NOTE: Side is discordant from given clinical history. Please correlate. Moderate lipomatous collection probably due to a benign soft tissue lipoma at the anterior aspect of the left femoral shaft, deep left gluteal, and of the medial left intermuscular upper leg, partially imaged. Atherosclerotic vascular disease. Cholecystectomy. Degenerative disc disease. Moderate disc bulge/osteophyte complex at the L2-L3 level with mild/moderate spinal or foraminal stenoses. 2 cm umbilical fat only hernia. Prominent left adrenal gland. No ascites. No pneumoperitoneum. No evidence of appendicitis. Likely normal appendix partially discerned. No bowel obstruction. No hydronephrosis or hydroureter. No renal/ureteral stone. No evidence of abdominal aortic aneurysm. Inferior thorax, liver, pancreas, spleen, adrenals, renal system, gastrointestinal tract, pelvic organs, lymphatics, vasculature, and musculoskeleton appear otherwise unremarkable. IMPRESSION: 1. 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 Arterial flow reconstitutes at the level of the left external iliac artery. Immediate Surgical referral advised. 2. Moderate patchy airspace opacities of the partially imaged lower lung. Differential etiologies include infectious, inflammatory, and neoplastic processes. Recommend CR/CT surveillance including at 7-12 weeks following initiation of any clinically warranted therapy. 3. 10 x 8 x 5 cm subcutaneous emphysema and edema of the posterior medial left upper leg. Advanced infectious etiology suspected. Gas bubbles could be due to advanced necrotizing component or iatrogenic. NOTE: Side is discordant from given clinical history. Please correlate. 4. Moderate lipomatous collection probably due to a benign soft tissue lipoma at the anterior aspect of the left femoral shaft , deep left gluteal, and of the medial left intermuscular upper leg, partially imaged.
[2019-12-21] MEDS ORDERED: INSULIN REG, HUMAN 100 UNIT/ML 3 ML VIAL (PYX) ONE ×2 (01:47→03:50)
[2019-12-21] MEDS: NORMAL SALINE 100 ML with INSULIN REGULAR, HUMAN 100 UNIT IV PRN ×4 (02:00→15:07)
[2019-12-21] MEDS: PROPOFOL 1,000 MG/100 ML INFUS..BTL IV PRN ×3 (02:20→18:44)
--- NOTE | 2019-12-21 02:53 | RADIOLOGY REPORT (SQ) ---
CLINICAL INDICATION: Post intubation. Respiratory failure TECHNIQUE: A single portable AP view was obtained of the chest at 0212 hours. COMPARISON: December 20, 2019. FINDINGS: The cardiomediastinal silhouette is prominent but stable. The lungs demonstrate progressive airspace consolidative change bilaterally at the bases left greater than right. There is also an associated interstitial component. No evidence of effusion or pneumothorax. Endotracheal tube tip lower limits of acceptable at 1.8 cm above the sara. IMPRESSION: Endotracheal tube tip lower limits of acceptable, 1.8 cm above the sara. New/progressive areas of airspace consolidative changes with associated interstitial prominence bilaterally.
[2019-12-21 04:19] LABS: ARTERIAL BLOOD BASE EXCESS -21.2 mmol/L; ARTERIAL BLOOD H2CO3 0.72 mmol/L (1.05-1.35); ARTERIAL BLOOD HCO3 7.1 mmol/L (20-24); ARTERIAL BLOOD O2 SATURATION 90.8 % (94-98); ARTERIAL BLOOD PO2 78.6 mmHg (80-100); ARTERIAL BLOOD TOTAL CO2 7.8 mmol/L (21-25)
[2019-12-21 04:21] LABS: ARTERIAL BLOOD FIO2 50%
[2019-12-21 04:22] LABS: ARTERIAL BLOOD PH 7.09 (7.35-7.45)
[2019-12-21] MEDS ORDERED: GLUCAGON,HUMAN RECOMB 1 MG INJ SUBCUT PRN (05:13)
[2019-12-21] MEDS ORDERED: NORMAL SALINE 1000 ML 1,000 ML IV PRN (05:13)
--- NOTE | 2019-12-21 05:13 | CRITICAL CARE ADMISSION REPORT ---
<KAVYA CABELLO - Last Filed: 12/21/19 05:02> HPI Date:: 12/21/19 Time:: 03:00 Reason for ICU Reason:: Profound metabolic acidosis, Respiratory Failure, DKA. HPI: 59-year-old female history of HTN, hypercholesterolemia, DM 2. Patient has had foul-smelling drainage from an area of her left posterior thigh. It was reported that she was bedbound for the past 2 days and became poorly responsive. Upon arrival to the emergency department, her WBC was 37, her glucose was 659 with positive ketones in her urine. She also presented with a severe metabolic acidosis pH: 6.94 HCO3: 4.1. CT of abdomen/pelvis showed subcutaneous emphysema and edema of the posterior medial left upper leg. Possible advanced necrotizing disease. 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 General surgeon, Dr. Jackson was consulted by the emergency room doctor and is following. The ICU team was consulted to evaluate. Upon arrival to the emergency department, patient was obtunded with very shallow and ineffective breathing pattern. She was immediately intubated and placed on mechanical ventilation with prompt transfer to the intensive care unit. Post intubation CXR showed bilateral patchy airspace consolidation. Given these findings, we will valuate further for possible COVID infection. - Diagnosis/Plan (1) Respiratory failure requiring intubation Is this a current diagnosis for this admission?: Yes Plan: \Likely secondary to profound metabolic acidosis with bilateral patchy infiltrates which may represent an underlying lung infection Obtain repeat blood gas now and make vent adjustments accordingly. We will empirically treat with a high minute volume given her profound metabolic acidosis. We will obtain sputum culture to further evaluate for infection including possible COVID-19 infection. Currently oxygenating well. (2) DKA (diabetic ketoacidoses) Qualifiers: Diabetes mellitus type: due to underlying condition Diabetes mellitus complication detail: without coma Qualified Code(s): E08.10 - Diabetes mellitus due to underlying condition with ketoacidosis without coma Is this a current diagnosis for this admission?: Yes Plan: Profound metabolic acidosis with sodium bicarb of 4.1. 2 amps of sodium bicarb given in the ED. Repeat stat renal panel with possible addition of sodium bicarb drip if no significant improvement. Continue insulin drip protocol Start aggressive fluid resuscitation with normal saline at 200 mL an hour. Follow potassium and electrolytes closely. Replete as needed. (3) Necrotizing subcutaneous infection Is this a current diagnosis for this admission?: Yes Plan: Possible gas gangrene seen on CT scan. Surgery (Dr. Jackson) consulted for evaluation. This most likely represents the infective source which prompted her high blood sugar and subsequent DKA. Past Medical History Cardiac Medical History: Reports: Hyperlipidema, Hypertension Pulmonary Medical History: Reports: Asthma Denies: Tuberculosis Neurological Medical History: Denies: Seizures Endocrine Medical History: Reports: Diabetes Mellitus Type 1, Diabetes Mellitus Type 2 Musculoskeltal Medical History: Reports: Arthritis Past Surgical History Past Surgical History: Reports: Cholecystectomy, Hysterectomy Social/Family History - Social History Lives with: Spouse/Significant other Smoking Status: Unknown if Ever Smoked Frequency of Alcohol Use: None Hx Recreational Drug Use: No Hx Prescription Drug Abuse: No - Medication/Allergies Home Medications: Oxycodone HCl/Acetaminophen [Oxycodone-Acetaminophen 10-325] 1 tab PO 5XDP PRN 12/21/19 Allergies/Adverse Reactions: Sulfa (Sulfonamide Antibiotics) Allergy (Verified 11/19/17 10:15) Review of Systems ROS unobtainable: Due to endotracheal tube, Due to mental status Physical Exam Vital Signs: Temp Pulse Resp BP Pulse Ox 23 H 156/133 H 100 12/20/19 23:01 12/20/19 23:01 12/20/19 23:01 Intake & Output 12/19/19 12/20/19 12/21/19 06:59 06:59 06:59 Intake Total 1000 Balance 1000 Weight 75 kg Weight/Height Weight 75 kg Height 5 ft 3 in General appearance: PRESENT: obese Head exam: PRESENT: atraumatic, normocephalic Eye exam: PRESENT: EOMI, PERRLA Teeth exam: PRESENT: other - Missing teeth Neck exam: PRESENT: full ROM Respiratory exam: PRESENT: other - Very Poor air movement prior to intubation. Now with deminished breath sounds bilaterally. Cardiovascular exam: PRESENT: RRR, +S1, +S2 Pulses: PRESENT: normal carotid pulses, normal radial pulses, other - Right lower extremity without Dorsalis Pedis or Posterior tibial pulses. GI/Abdominal exam: PRESENT: normal bowel sounds, soft. ABSENT: distended Extremities exam: PRESENT: other - Left inner thigh abscess with very purulant and necrotic appearing discharge. Neurological exam: PRESENT: CN II-XII grossly intact, other - Sedated, RASS 0- negative 2 Skin exam: PRESENT: other - Erythemetous over Left inner thigh. Lower extremity cool. Tubes/Lines: PRESENT: Endotracheal Tube, Central Line, Nasogastic Tube Laboratory/Radiographs Laboratory Results: 12/20/19 23:11 12/20/19 12/20/19 12/20/19 22:35 22:35 22:35 WBC Cancelled RBC Cancelled Hgb Cancelled Hct Cancelled MCV Cancelled MCH Cancelled MCHC Cancelled RDW Cancelled Plt Count Cancelled Seg Neutrophils % Cancelled Carbonic Acid HCO3/H2CO3 Ratio ABG pH ABG pCO2 ABG pO2 ABG HCO3 ABG O2 Saturation ABG Base Excess FiO2 Sodium 137.2 Potassium 3.9 Chloride 103 Carbon Dioxide < 10 L* Anion Gap Not Reportable BUN 28 H Creatinine 1.33 H Est GFR ( Amer) 49 L Glucose 659 H* Lactic Acid 3.1 H Calcium 10.3 H Magnesium Total Bilirubin 0.5 AST 33 Alkaline Phosphatase 335 H Total Protein 7.8 Albumin 3.6 Urine Color Urine Appearance Urine pH Ur Specific [place] Urine Protein Urine Glucose (UA) Urine Ketones Urine Blood Urine RBC (Auto) 12/20/19 12/20/19 12/20/19 22:35 22:50 23:11 WBC 37.1 H* RBC 5.66 H Hgb 15.2 Hct 48.7 H MCV 86 MCH 26.8 L MCHC 31.1 L RDW 18.3 H Plt Count 432 Seg Neutrophils % Not Reportable Carbonic Acid HCO3/H2CO3 Ratio ABG pH ABG pCO2 ABG pO2 ABG HCO3 ABG O2 Saturation ABG Base Excess FiO2 Sodium Potassium Chloride Carbon Dioxide Anion Gap BUN Creatinine Est GFR ( Amer) Glucose Lactic Acid Calcium Magnesium 3.5 H Total Bilirubin AST Alkaline Phosphatase Total Protein Albumin Urine Color YELLOW Urine Appearance CLOUDY Urine pH 5.0 Ur Specific [place] 1.021 Urine Protein 100 H Urine Glucose (UA) >=500 H Urine Ketones 80 H Urine Blood MODERATE H Urine RBC (Auto) 1 12/21/19 00:09 WBC RBC Hgb Hct MCV MCH MCHC RDW Plt Count Seg Neutrophils % Carbonic Acid 0.58 L HCO3/H2CO3 Ratio 7:1 ABG pH 6.94 L* ABG pCO2 19.3 L* ABG pO2 92.9 ABG HCO3 4.1 L ABG O2 Saturation 91.3 L ABG Base Excess -26.9 FiO2 4L Sodium Potassium Chloride Carbon Dioxide Anion Gap BUN Creatinine Est GFR ( Amer) Glucose Lactic Acid Calcium Magnesium Total Bilirubin AST Alkaline Phosphatase Total Protein Albumin Urine Color Urine Appearance Urine pH Ur Specific [place] Urine Protein Urine Glucose (UA) Urine Ketones Urine Blood Urine RBC (Auto) Impressions: Abdomen/Pelvis CT 12/20/19 23:13 IMPRESSION: 1. 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 Arterial flow reconstitutes at the level of the left external iliac artery. Immediate Surgical referral advised. 2. Moderate patchy airspace opacities of the partially imaged lower lung. Differential etiologies include infectious, inflammatory, and neoplastic processes. Recommend CR/CT surveillance including at 7-12 weeks following initiation of any clinically warranted therapy. 3. 10 x 8 x 5 cm subcutaneous emphysema and edema of the posterior medial left upper leg. Advanced infectious etiology suspected. Gas bubbles could be due to advanced necrotizing component or iatrogenic. NOTE: Side is discordant from given clinical history. Please correlate. 4. Moderate lipomatous collection probably due to a benign soft tissue lipoma at the anterior aspect of the left femoral shaft , deep left gluteal, and of the medial left intermuscular upper leg, partially imaged. Chest X-Ray 12/21/19 02:20 IMPRESSION: Endotracheal tube tip lower limits of acceptable, 1.8 cm above the sara. New/progressive areas of airspace consolidative changes with associated interstitial prominence bilaterally. All labs, radiographs, diagnostic studies and EKGs were personally reviewed: Yes In addition, reports of radiographic and diagnostic studies were read: Yes Critical Time Critical Time (minutes): 85 -: The care of a critically ill patient is dynamic. This note represents a static moment in the admission process. Orders and treatments may be given simultaneous ly and urgently, and time is not agency service representative of the treatment process. This patient requires Critical Care secondary to life threatening organ or limb dysfunction. Without Critical Care services, the patient is at risk for increased mortality and morbidity. <LORENZO HERNANDEZ - Last Filed: 12/21/19 08:35> HPI - . Plan Summary: I personally saw examined and reviewed this patient's case. Received valuable information from the overnight critical care team, KATHIE CABELLO, agree with plans finding and care. She has a complex illness which required further input by me. Please see my addended note which accompanies this note. Physical Exam Vital Signs: Temp Pulse Resp BP Pulse Ox 100.0 F 118 H 27 H 155/69 H 99 12/21/19 05:48 12/21/19 05:48 12/21/19 03:33 12/21/19 03:33 12/21/19 03:33 Intake & Output 12/20/19 12/21/19 12/22/19 06:59 06:59 06:59 Intake Total 1061 7 Output Total 950 Balance 111 7 Weight 67.3 kg Weight/Height Weight 67.3 kg Height 5 ft 3 in Laboratory/Radiographs Laboratory Results: 12/21/19 06:27 12/21/19 05:50 12/20/19 12/20/19 12/20/19 22:35 22:35 22:35 WBC Cancelled RBC Cancelled Hgb Cancelled Hct Cancelled MCV Cancelled MCH Cancelled MCHC Cancelled RDW Cancelled Plt Count Cancelled Seg Neutrophils % Cancelled Carbonic Acid HCO3/H2CO3 Ratio ABG pH ABG pCO2 ABG pO2 ABG HCO3 ABG O2 Saturation ABG Base Excess FiO2 Sodium 137.2 Potassium 3.9 Chloride 103 Carbon Dioxide < 10 L* Anion Gap Not Reportable BUN 28 H Creatinine 1.33 H Est GFR ( Amer) 49 L Glucose 659 H* Lactic Acid 3.1 H Calcium 10.3 H Magnesium Ferritin Total Bilirubin 0.5 AST 33 Alkaline Phosphatase 335 H C-Reactive Protein Total Protein 7.8 Albumin 3.6 Urine Color Urine Appearance Urine pH Ur Specific [place] Urine Protein Urine Glucose (UA) Urine Ketones Urine Blood Urine RBC (Auto) 12/20/19 12/20/19 12/20/19 22:35 22:50 23:11 WBC 37.1 H* RBC 5.66 H Hgb 15.2 Hct 48.7 H MCV 86 MCH 26.8 L MCHC 31.1 L RDW 18.3 H Plt Count 432 Seg Neutrophils % Not Reportable Carbonic Acid HCO3/H2CO3 Ratio ABG pH ABG pCO2 ABG pO2 ABG HCO3 ABG O2 Saturation ABG Base Excess FiO2 Sodium Potassium Chloride Carbon Dioxide Anion Gap BUN Creatinine Est GFR ( Amer) Glucose Lactic Acid Calcium Magnesium 3.5 H Ferritin Total Bilirubin AST Alkaline Phosphatase C-Reactive Protein Total Protein Albumin Urine Color YELLOW Urine Appearance CLOUDY Urine pH 5.0 Ur Specific [place] 1.021 Urine Protein 100 H Urine Glucose (UA) >=500 H Urine Ketones 80 H Urine Blood MODERATE H Urine RBC (Auto) 1 12/21/19 12/21/19 12/21/19 00:09 03:11 04:10 WBC RBC Hgb Hct MCV MCH MCHC RDW Plt Count Seg Neutrophils % Carbonic Acid 0.58 L 0.72 L HCO3/H2CO3 Ratio 7:1 9:1 ABG pH 6.94 L* 7.09 L* ABG pCO2 19.3 L* 24.0 L ABG pO2 92.9 78.6 L ABG HCO3 4.1 L 7.1 L ABG O2 Saturation 91.3 L 90.8 L ABG Base Excess -26.9 -21.2 FiO2 4L 50% Sodium Potassium Chloride Carbon Dioxide Anion Gap BUN Creatinine Est GFR ( Amer) Glucose Lactic Acid 2.8 H Calcium Magnesium Ferritin Total Bilirubin AST Alkaline Phosphatase C-Reactive Protein Total Protein Albumin Urine Color Urine Appearance Urine pH Ur Specific [place] Urine Protein Urine Glucose (UA) Urine Ketones Urine Blood Urine RBC (Auto) 12/21/19 12/21/19 12/21/19 05:50 05:50 06:27 WBC 33.7 H* RBC 5.40 H Hgb 14.4 Hct 43.7 MCV 81 D MCH 26.6 L MCHC 32.9 RDW 17.4 H Plt Count 393 Seg Neutrophils % Not Reportable Carbonic Acid HCO3/H2CO3 Ratio ABG pH ABG pCO2 ABG pO2 ABG HCO3 ABG O2 Saturation ABG Base Excess FiO2 Sodium 141.1 Potassium 2.6 L* D Chloride 114 H Carbon Dioxide 12 L Anion Gap 15 BUN 31 H Creatinine 0.99 Est GFR ( Amer) > 60 Glucose 333 H Lactic Acid 1.9 Calcium 9.2 Magnesium 2.0 D Ferritin 1290.00 H Total Bilirubin AST Alkaline Phosphatase C-Reactive Protein 566.2 H Total Protein Albumin Urine Color Urine Appearance Urine pH Ur Specific [place] Urine Protein Urine Glucose (UA) Urine Ketones Urine Blood Urine RBC (Auto) Impressions: Abdomen/Pelvis CT 12/20/19 23:13 IMPRESSION: 1. 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 Arterial flow reconstitutes at the level of the left external iliac artery. Immediate Surgical referral advised. 2. Moderate patchy airspace opacities of the partially imaged lower lung. Differential etiologies include infectious, inflammatory, and neoplastic processes. Recommend CR/CT surveillance including at 7-12 weeks following initiation of any clinically warranted therapy. 3. 10 x 8 x 5 cm subcutaneous emphysema and edema of the posterior medial left upper leg. Advanced infectious etiology suspected. Gas bubbles could be due to advanced necrotizing component or iatrogenic. NOTE: Side is discordant from given clinical history. Please correlate. 4. Moderate lipomatous collection probably due to a benign soft tissue lipoma at the anterior aspect of the left femoral shaft , deep left gluteal, and of the medial left intermuscular upper leg, partially imaged. KUB X-Ray 12/21/19 00:00 IMPRESSION: Tip of an enteric tube is at the distal esophagus. Consider 16 cm advancement or replacement. Chest X-Ray 12/21/19 02:20 IMPRESSION: Endotracheal tube tip lower limits of acceptable, 1.8 cm above the sara. New/progressive areas of airspace consolidative changes with associated interstitial prominence bilaterally. Critical Time -: The care of a critically ill patient is dynamic. This note represents a static moment in the admission process. Orders and treatments may be given simultaneously and urgently, and time is not agency service representative of the treatment process. This patient requires Critical Care secondary to life threatening organ or limb dysfunction. Without Critical Care services, the patient is at risk for increased mortality and morbidity.
[2019-12-21] MEDS ORDERED: PHARMACY COMMUNICATION ORDER MC NR (05:15)
[2019-12-21] MEDS ORDERED: VANCOMYCIN HCL 0 MG in DEXTROSE 5%-WATER 250 ML IV NR (05:45)
[2019-12-21] MEDS ORDERED: NORMAL SALINE INJ/PF 0.9% 10 ML SDV IV PRN (05:51)
[2019-12-21] MEDS ORDERED: PIPERACILLIN/TAZOBACTAM 3.375 GM VIAL IV PRN (05:52)
[2019-12-21] MEDS ORDERED: PIPERACILLIN SODIUM/TAZOBACTAM 3.375 GM in NORMAL SALINE 100 ML IV SCH (06:00)
--- NOTE | 2019-12-21 06:06 | Operative Report ---
Bedside Procedure - History of Present Illness History of Present Illness: Procedure: Central line placement Indication: IV fluids, lab draws, vasoactive medications. Procedure inclined railway operator: Rahul Jacob Attending physician: Dr. Patel Consent: The procedure was performed emergently and the permission was implied because of the emergent nature. Procedure summary: The [facility] central line insertion practice form was completed by RN. A timeout was performed. My hands were washed immediately prior to the procedure. I wore surgical cap, mask with protective eyewear, full gown and sterile gloves throughout the procedure. The patient was placed in Trendelenburg position. RIGHT chest region was prepped using chlorhexidine scrub and draped in sterile fashion using a full drape. Sterile probe cover was placed on ultrasound probe. The medial and lateral heads of the sternocleidomastoid muscle were identified as was the carotid pulse. The internal jugular vein was identified using ultrasound. Anesthesia was achieved over the vein using 4 cc of 1% lidocaine. Using real-time out of plane guidance, the introducer needle was inserted into the internal jugular vein under direct ultrasound visualization. Venous blood was withdrawn. The syringe was removed and a guidewire was advanced into the introducer needle. The guidewire was visualized in the internal jugular vein by ultrasound. A small incision was made at the skin surface with a scalpel and the introducer needle was exchanged for a dilator over the guidewire. After appropriate dilation was obtained, the dilator was exchanged over a wire for a 7 [place], 20 cm central venous catheter. The wire was removed and the catheter was sutured in place at 15 cm. A IO patch was placed and a sterile Sorbaview shield was placed over the catheter at the insertion site. The patient tolerated the procedure well without any hemodynamic compromise. At time of procedure completion, all ports aspirated and flushed properly. Postprocedure x-ray shows central line at the SVC/RA junction. Estimated blood loss is approximately 5 cc. Indication for Procedure: IV Medications, blood draws, vasoactive medications. Date: 12/21/19 Provider: RAHUL JACOB - Central Line Right Internal jugular Time completed: 04:00 Central line pre-insertion: Sterile PPE donned, Chloraprep applied, Sterile drapes applied Central line lumen type: Triple Anesthetic type: 1% Lidocaine mL's of anesthesia: 3 Ultrasound guided: Yes CM at insertion site: 15 Line secured with sutures: Yes Central line post-insertion: Blood return from lumens, Biopatch applied, Sutured, Sterile dressing applied, Position confirmed w/ CXR Number of attempts: 1 Complications: No
--- NOTE | 2019-12-21 06:13 | Operative Report ---
Bedside Procedure - History of Present Illness History of Present Illness: Indication: Acute respiratory failure Procedure beam press operator: Kavya Jacob Attending physician: Dr. Patel Consent: Physician consent obtained due to the emergent nature of this procedure. Patient's family was notified immediately after the patient was stabilized. Procedure summary: A timeout was performed. My hands were washed immediately prior to the procedure. I were surgical cap, mask with protective eyewear, gown and gloves throughout the procedure. The patient was placed on a quality assurance monitor chassis including continuous pulse oximetry. Rapid sequence intubation was conducted. The patient received 10 mg of etomidate for induction and 100 mg of rocuronium for adequate paralysis. Cricoid pressure was maintained from time induction agent was given the time of cuff balloon inflation. Using a size 4 Smooth laryngoscope and a size 1.5 endotracheal tube with stylette, the patient was intubated on the second attempt. The stylette was removed and the cuff balloon was inflated. Appropriate endotracheal tube position was confirmed by direct visualization of vocal cord passage, CO2 colorimetric indicator and symmetric breath sounds. The tube was secured at 23 centimeters at the lips. Post intubation chest x-ray confirms ET tube at 23 centimeters above the sara. Indication for Procedure: Respiratory Failure Date: 12/21/19 Provider: KAVYA JACOB
--- NOTE | 2019-12-21 06:22 | RADIOLOGY REPORT (SQ) ---
EXAM DESCRIPTION: XR ABDOMEN 1 VIEW (KUB) COMPLETED DATE/TME: 12/21/2019 00:00 CLINICAL HISTORY: 59 years Female, NG PLACEMENT COMPARISON: None. NUMBER OF VIEWS/TECHNIQUE: 1 FINDINGS: Tip of an enteric tube is at the distal esophagus. Consider 16 cm advancement or replacement. Central line tip at the cavoatrial junction. Moderate mixed interstitial and airspace opacities consistent with concurrent CR chest. IMPRESSION: Tip of an enteric tube is at the distal esophagus. Consider 16 cm advancement or replacement.
--- NOTE | 2019-12-21 06:30 | RADIOLOGY REPORT (SQ) ---
EXAM DESCRIPTION: XR CHEST 1 VIEW COMPLETED DATE/TME: 12/21/2019 00:00 CLINICAL HISTORY: 59 years Female, RIJ Central Line Placement COMPARISON: One day prior. NUMBER OF VIEWS/TECHNIQUE: 1/AP FINDINGS: Enteric tube tip is at the distal esophagus; recommend 15 cm advancement or replacement. Adequate appearing endotracheal tube. Adequate appearing right jugular central line. Moderate mixed interstitial and airspace opacity includes moderate patchy opacity of the left mid lung field. Stable. Atherosclerotic vascular disease. Normal cardiac silhouette size. No pneumothorax. Stable bony thorax. IMPRESSION: Enteric tube tip is at the distal esophagus; recommend 15 cm advancement or replacement.
[2019-12-21] MEDS ORDERED: PIPERACILLIN/TAZOBACTAM 3.375 GM VIAL IV ONE (06:36)
[2019-12-21 06:37] LABS: ANION GAP 15 (5-19); BLOOD UREA NITROGEN 31 mg/dL (7-20); CALCIUM 9.2 mg/dL (8.4-10.2); CARBON DIOXIDE 12 mmol/L (22-30); CHLORIDE 114 mmol/L (98-107); GLUCOSE 333 mg/dL (75-110)
[2019-12-21] MEDS: HEPARIN SOD (PORCINE) 5,000 UNIT/ML 1 ML VIAL SUBCUT SCH ×3 (06:55→21:42)
[2019-12-21 06:57] LABS: HEMATOCRIT 43.7 % (36.0-47.0); HEMOGLOBIN 14.4 g/dL (12.0-15.5); MEAN CORPUSCULAR HEMOGLOBIN 26.6 pg (27.0-33.4); MEAN CORPUSCULAR HGB CONC 32.9 g/dL (32.0-36.0); PLATELET COUNT 393 10^3/uL (150-450); RED CELL DISTRIBUTION WIDTH 17.4 % (11.5-14.0)
[2019-12-21 07:06] LABS: INTERNATIONAL RATION (INR) 1.27; PARTIAL THROMBOPLASTIN TIME 31.8 SEC (23.5-35.8)
[2019-12-21 07:34] LABS: MEAN CORPUSCULAR VOLUME 81 fl (80-97)
[2019-12-21 07:37] LABS: POTASSIUM 2.6 mmol/L (3.6-5.0)
[2019-12-21 07:39] LABS: C-REACTIVE PROTEIN 566.2 mg/L (<10.0)
--- NOTE | 2019-12-21 07:40 | PDOC CONSULTATION ---
Consultation Consult Date: 12/21/19 Provider Consulted: SURGICAL SURGICALIST MD Consult reason:: Necrotizing soft tissue infection of the left thigh. History of Present Illness Admission Date/PCP: 12/21/19 02:27 History of Present Illness: CHANELL FOSS is a 59 year old female seen in consultation at the request of the hospitalist service. This is a patient who presented in acute distress. She was intubated in the emergency department. She has bilateral patchy infiltrates on chest x-ray, concerning for Covid 19. Her blood sugars are greater than 600, concerning for DKA. She also has a large, necrotic area of her left, inner, posterior thigh concerning for ongoing necrotizing soft tissue infection. Currently the patient is intubated and sedated. Review of systems is impossible to obtain due to her intubation with sedation. All history is gleaned from the medical record and the nursing staff. Past Medical History Cardiac Medical History: Reports: Hyperlipidema, Hypertension Pulmonary Medical History: Reports: Asthma Denies: Tuberculosis Neurological Medical History: Denies: Seizures Endocrine Medical History: Reports: Diabetes Mellitus Type 1, Diabetes Mellitus Type 2 Musculoskeltal Medical History: Reports: Arthritis Past Surgical History Past Surgical History: Reports: Cholecystectomy, Hysterectomy Social History Lives with: Spouse/Significant other Smoking Status: Unknown if Ever Smoked Electronic Cigarette use?: No Frequency of Alcohol Use: None Hx Recreational Drug Use: No Hx Prescription Drug Abuse: No Family History Family History: Reviewed & Not Pertinent Parental Family History Reviewed: Yes Children Family History Reviewed: Yes Sibling(s) Family History Reviewed.: Yes Medication/Allergy Home Medications: Amlodipine Besylate 1 tab PO DAILY 07/13/13 Hydrocodone Bit/Acetaminophen [Hydrocodon-Acetaminophen 5-500] 1 each PO TID PRN 07/13/13 Linagliptin [Tradjenta] 5 mg PO DAILY 07/13/13 Metformin HCl [Glumetza] 1,000 mg PO BID 07/13/13 Pregabalin [Lyrica 75 mg Capsule] 75 mg PO BID 07/13/13 Ramipril [Altace 2.5 mg Capsule] 1 cap PO DAILY 07/13/13 Hydrocodone Bit/Acetaminophen [Vicodin 5-500 mg Tablet ([facility])] 1 - 2 tab PO ASDIR PRN 07/17/13 Cephalexin Monohydrate [Keflex 500 mg Capsule] 500 mg PO Q6 #28 capsule 03/10/14 Clindamycin HCl [Cleocin 150 mg Capsule] 150 mg PO Q6 #56 capsule 05/19/16 Fluconazole [Diflucan] 150 mg PO ONCE PRN #1 tablet 05/19/16 Hydrocodone/Acetaminophen [[place] 5-325 mg Tablet] 1 - 2 tab PO ASDIR #15 tablet 05/19/16 Oxycodone HCl/Acetaminophen [Percocet 5-325 mg Tablet] 1 - 2 tab PO Q4H PRN #20 tablet 10/10/16 Oxycodone HCl/Acetaminophen [Percocet 5-325 mg Tablet] 1 tab PO Q6HP PRN #15 tablet 10/16/16 Tramadol HCl [Ultram 50 mg Tablet] 50 mg PO Q4HP PRN #12 tab 11/19/17 Allergies/Adverse Reactions: Sulfa (Sulfonamide Antibiotics) Allergy (Verified 11/19/17 10:15) Review of Systems ROS unobtainable: Due to endotracheal tube, Due to mental status Physical Exam Vital Signs: Temp Pulse Resp BP Pulse Ox 100.0 F 118 H 27 H 155/69 H 99 12/21/19 05:48 12/21/19 05:48 12/21/19 03:33 12/21/19 03:33 12/21/19 03:33 Intake & Output 12/19/19 12/20/19 12/21/19 06:59 06:59 06:59 Intake Total 1061 Output Total 950 Balance 111 Weight 67.3 kg General appearance: PRESENT: other - Sedated Head exam: PRESENT: atraumatic, normocephalic Eye exam: PRESENT: EOMI, PERRLA. ABSENT: scleral icterus Mouth exam: PRESENT: moist, neck supple Neck exam: ABSENT: thyromegaly, tracheal deviation, tracheostomy Respiratory exam: PRESENT: rales, other - Ventilatory support at present. ABSENT: tachypnea Cardiovascular exam: PRESENT: tachycardia Vascular exam: PRESENT: pallor GI/Abdominal exam: PRESENT: soft. ABSENT: firm, rigid, tenderness Rectal exam: PRESENT: deferred Extremities exam: PRESENT: other - Cool lower extremities bilaterally. Skin is normal in color. Biphasic dopplerable femoral signal bilaterally. Neurological exam: PRESENT: altered, other - Sedated Psychiatric exam: PRESENT: other - Sedated Focused psych exam: PRESENT: other - Sedated Skin exam: PRESENT: other - Approximately 8 cm area of the left inner, posterior thigh with dark, black skin, concerning for necrotizing soft tissue infection. Results Laboratory Results: 12/20/19 12/20/19 12/20/19 22:35 22:35 22:35 WBC Cancelled RBC Cancelled Hgb Cancelled Hct Cancelled MCV Cancelled MCH Cancelled MCHC Cancelled RDW Cancelled Plt Count Cancelled Seg Neutrophils % Cancelled Carbonic Acid HCO3/H2CO3 Ratio ABG pH ABG pCO2 ABG pO2 ABG HCO3 ABG O2 Saturation ABG Base Excess FiO2 Sodium 137.2 Potassium 3.9 Chloride 103 Carbon Dioxide < 10 L* Anion Gap Not Reportable BUN 28 H Creatinine 1.33 H Est GFR ( Amer) 49 L Glucose 659 H* Lactic Acid 3.1 H Calcium 10.3 H Magnesium Total Bilirubin 0.5 AST 33 Alkaline Phosphatase 335 H Total Protein 7.8 Albumin 3.6 Urine Color Urine Appearance Urine pH Ur Specific [employer] Urine Protein Urine Glucose (UA) Urine Ketones Urine Blood Urine RBC (Auto) 12/20/19 12/20/19 12/20/19 22:35 22:50 23:11 WBC 37.1 H* RBC 5.66 H Hgb 15.2 Hct 48.7 H MCV 86 MCH 26.8 L MCHC 31.1 L RDW 18.3 H Plt Count 432 Seg Neutrophils % Not Reportable Carbonic Acid HCO3/H2CO3 Ratio ABG pH ABG pCO2 ABG pO2 ABG HCO3 ABG O2 Saturation ABG Base Excess FiO2 Sodium Potassium Chloride Carbon Dioxide Anion Gap BUN Creatinine Est GFR ( Amer) Glucose Lactic Acid Calcium Magnesium 3.5 H Total Bilirubin AST Alkaline Phosphatase Total Protein Albumin Urine Color YELLOW Urine Appearance CLOUDY Urine pH 5.0 Ur Specific [employer] 1.021 Urine Protein 100 H Urine Glucose (UA) >=500 H Urine Ketones 80 H Urine Blood MODERATE H Urine RBC (Auto) 1 12/21/19 12/21/19 12/21/19 00:09 03:11 04:10 WBC RBC Hgb Hct MCV MCH MCHC RDW Plt Count Seg Neutrophils % Carbonic Acid 0.58 L 0.72 L HCO3/H2CO3 Ratio 7:1 9:1 ABG pH 6.94 L* 7.09 L* ABG pCO2 19.3 L* 24.0 L ABG pO2 92.9 78.6 L ABG HCO3 4.1 L 7.1 L ABG O2 Saturation 91.3 L 90.8 L ABG Base Excess -26.9 -21.2 FiO2 4L 50% Sodium Potassium Chloride Carbon Dioxide Anion Gap BUN Creatinine Est GFR ( Amer) Glucose Lactic Acid 2.8 H Calcium Magnesium Total Bilirubin AST Alkaline Phosphatase Total Protein Albumin Urine Color Urine Appearance Urine pH Ur Specific [employer] Urine Protein Urine Glucose (UA) Urine Ketones Urine Blood Urine RBC (Auto) 12/21/19 05:50 WBC RBC Hgb Hct MCV MCH MCHC RDW Plt Count Seg Neutrophils % Carbonic Acid HCO3/H2CO3 Ratio ABG pH ABG pCO2 ABG pO2 ABG HCO3 ABG O2 Saturation ABG Base Excess FiO2 Sodium Potassium Chloride Carbon Dioxide Anion Gap BUN Creatinine Est GFR ( Amer) Glucose Lactic Acid 1.9 Calcium Magnesium Total Bilirubin AST Alkaline Phosphatase Total Protein Albumin Urine Color Urine Appearance Urine pH Ur Specific [employer] Urine Protein Urine Glucose (UA) Urine Ketones Urine Blood Urine RBC (Auto) Impressions: Abdomen/Pelvis CT 12/20/19 23:13 IMPRESSION: 1. 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 Arterial flow reconstitutes at the level of the left external iliac artery. Immediate Surgical referral advised. 2. Moderate patchy airspace opacities of the partially imaged lower lung. Differential etiologies include infectious, inflammatory, and neoplastic processes. Recommend CR/CT surveillance including at 7-12 weeks following initiation of any clinically warranted therapy. 3. 10 x 8 x 5 cm subcutaneous emphysema and edema of the posterior medial left upper leg. Advanced infectious etiology suspected. Gas bubbles could be due to advanced necrotizing component or iatrogenic. NOTE: Side is discordant from given clinical history. Please correlate. 4. Moderate lipomatous collection probably due to a benign soft tissue lipoma at the anterior aspect of the left femoral shaft , deep left gluteal, and of the medial left intermuscular upper leg, partially imaged. KUB X-Ray 12/21/19 00:00 IMPRESSION: Tip of an enteric tube is at the distal esophagus. Consider 16 cm advancement or replacement. Chest X-Ray 12/21/19 02:20 IMPRESSION: Endotracheal tube tip lower limits of acceptable, 1.8 cm above the sara. New/progressive areas of airspace consolidative changes with associated interstitial prominence bilaterally. Assessment & Plan - Diagnosis (1) Necrotizing subcutaneous infection Is this a current diagnosis for this admission?: Yes - Plan Summary Plan Summary: This is a 59-year-old female with multiple, life-threatening problems. The patient has respiratory distress, consistent with Covid 19. She also is in DKA with a necrotizing soft tissue infection of the left lower extremity. The patient will require debridement of the necrotizing soft tissue infection. It would be helpful to continue to treat her hyperglycemia. Continue with antibiotics. I will discuss the case with Dr. Funes, who is the oncoming surgeon. We will make a plan to facilitate treatment of the soft tissue infection.
[2019-12-21 07:41] LABS: ABSOLUTE LYMPHOCYTES# (MANUAL) 1.7 10^3/uL (0.5-4.7); ABSOLUTE MONOCYTES # (MANUAL) 0.7 10^3/uL (0.1-1.4); BAND NEUTROPHILS % (MANUAL) 9 % (3-5); BASOPHILS % (MANUAL) 0 % (0-2); EOSINOPHILS % (MANUAL) 0 % (0-6); LYMPHOCYTES % (MANUAL) 5 % (13-45); MONOCYTES % (MANUAL) 2 % (3-13); SEGMENTED NEUTROPHILS % (MAN) 84 % (42-78); TOTAL CELLS COUNTED 100
[2019-12-21 07:43] LABS: ANISOCYTOSIS 1+; PLATELET CLUMPS PRESENT; PLATELET COMMENT ADEQUATE; PLATELET LARGE PRESENT; TARGET CELLS SLIGHT; TOXIC GRANULATION SLIGHT; TOXIC VACUOLATION PRESENT
[2019-12-21 07:45] LABS: WHITE BLOOD COUNT 33.7 10^3/uL (4.0-10.5)
[2019-12-21] MEDS ORDERED: HYDROMORPHONE HCL 30 MG/60 ML RTUINJ IV PRN (08:55)
--- NOTE | 2019-12-21 09:06 | EKG REPORT ---
SEVERITY:- BORDERLINE ECG - SINUS TACHYCARDIA RIGHT AXIS DEVIATION BORDERLINE PROLONGED QT INTERVAL : Confirmed by: Anitha Escobar MD 21-Dec-2019 09:06:04
[2019-12-21] MEDS: RINGERS SOLUTION,LACTATED 1,000 ML IV PRN ×2 (09:13→18:51)
[2019-12-21] MEDS: PANTOPRAZOLE SODIUM 40 MG VIAL IV SCH ×2 (09:22→21:42)
[2019-12-21 09:36] LABS: ARTERIAL BLOOD BASE EXCESS -11.6 mmol/L; ARTERIAL BLOOD FIO2 45%; ARTERIAL BLOOD H2CO3 0.79 mmol/L (1.05-1.35); ARTERIAL BLOOD HCO3 12.8 mmol/L (20-24); ARTERIAL BLOOD O2 SATURATION 94.1 % (94-98); ARTERIAL BLOOD PCO2 26.1 mmHg (35-45); ARTERIAL BLOOD PH 7.31 (7.35-7.45); ARTERIAL BLOOD PO2 74.5 mmHg (80-100); ARTERIAL BLOOD TOTAL CO2 13.6 mmol/L (21-25)
[2019-12-21 09:57] LABS: ANION GAP 13 (5-19); BLOOD UREA NITROGEN 30 mg/dL (7-20); CALCIUM 9.3 mg/dL (8.4-10.2); CARBON DIOXIDE 12 mmol/L (22-30); CHLORIDE 118 mmol/L (98-107); GLUCOSE 127 mg/dL (75-110); PHOSPHORUS 1.2 mg/dL (2.5-4.5)
[2019-12-21] MEDS ORDERED: CEFEPIME 2 GM/D5W RTU 2 GM/50 ML RTUPB IV SCH (10:00)
[2019-12-21] MEDS ORDERED: FAMOTIDINE INJ/PF 20 MG/2 ML SDV IV SCH (10:00)
[2019-12-21 10:01] LABS: POTASSIUM 2.5 mmol/L (3.6-5.0)
[2019-12-21] MEDS: CEFEPIME HCL 2 GM in DEXTROSE 5%-WATER 50 ML IV SCH ×2 (10:45→21:40)
[2019-12-21] MEDS: VANCOMYCIN HCL 1,250 MG in DEXTROSE 5%-WATER 250 ML IV SCH (10:46)
[2019-12-21] MEDS: POTASSI CL 20 MEQ/50 ML RIDER 20 MEQ/50 ML RTUPB IV SCH ×4 (11:06→20:19)
[2019-12-21 15:28] LABS: ANION GAP 8 (5-19); BLOOD UREA NITROGEN 29 mg/dL (7-20); CARBON DIOXIDE 15 mmol/L (22-30); CHLORIDE 117 mmol/L (98-107); GLUCOSE 283 mg/dL (75-110); PHOSPHORUS 1.8 mg/dL (2.5-4.5); POTASSIUM 3.2 mmol/L (3.6-5.0)
--- NOTE | 2019-12-21 17:33 | Operative Report ---
Bedside Procedure - History of Present Illness History of Present Illness: 1-year-old female history of HTN, hypercholesterolemia, DM 2. Patient has had foul-smelling drainage from an area of her left posterior thigh. It was reported that she was bedbound for the past 2 days and became poorly responsive. Upon arrival to the emergency department, her WBC was 37, her glucose was 659 with positive ketones in her urine. She also presented with a severe metabolic acidosis pH: 6.94 HCO3: 4.1. CT of abdomen/pelvis showed subcutaneous emphysema and edema of the posterior medial left upper leg. Possible advanced necrotizing disease. 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 General surgeon, Dr. Jackson was consulted by the emergency room doctor and is following. The ICU team was consulted to evaluate. Upon arrival to the emergency department, patient was obtunded with very shallow and ineffective breathing pattern. She was immediately intubated and placed on mechanical ventilation with prompt transfer to the intensive care unit. Post intubation CXR showed bilateral patchy airspace consolidation. Given these findings, we will valuate further for possible COVID infection. Indication for Procedure: sepsis Date: 12/21/19 Provider: LORENZO HERNANDEZ - Additional Procedures Arterial Line Time performed: 09:00 Notes: Preprocedure diagnosis: Sepsis Postprocedure diagnosis: Name Procedure: Placement of right axillary artery catheter Proceduralist: Jorge [facility] Complications: Failed attempted right and left radial Blood loss: 10 to 12 cc Patient was appropriately identified secondary to ongoing critical care chart check name oksana. Daughter gave consent over the phone. She had acceptable arterial pulse on palpation in the right axillary artery. 2 attempts in the right and left radial arteries were unsuccessful secondary to inability to pass a catheter. The right axillary region was prepped and draped with chlorhexidine using regional sterile barriers as well as sterile gloves. A Seldinger needle was placed. Good pulsatile blood flow was noted. After this, a wire was placed without difficulty and the needle was removed. An 18-gauge long catheter was placed over wire using typical Seldinger technique. The wire was removed and 2-3 heartbeats occurred to clear debris from the catheter. A transducer tube was attached after the catheter was sutured in place. Reapplication of chlorhexidine occurred and was allowed to dry. A sterile dressing was then applied. Tolerated procedure well Procedure excludes critical care time
--- NOTE | 2019-12-21 17:39 | Progress Note ---
Provider Note Provider Note: I personally saw and evaluated the patient and discussed case and care with the KATHIE Jacob Personally examined abscess which has a putrid foul odor. Patient has significant acidosis with both metabolic anion and non-anion gap. Her gap is correcting and her glucose is improving with the treatment provided this morning. Chest x-ray has evolved raising the concern for SARS, 2-CoViD19 can be a coinfection. Broaden out antibiotics. She will undergo debridement in the ICU because of her unstable nature and because of the possibility of SARS, 2-CoViD19 I placed an arterial catheter in anticipation for a septic shock like picture after debridement. Type and screen ordered. Have adjusted ventilatory drive to meet metabolic demands Beta hydroxybutyrate is pending Await cultures. She is on sieve but appears chronically ill. In discussion with her daughter patient has been having issues with the left leg sore for quite some time but refused to be seen. Appears to be some component of poor self-care. 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 Mortality is high especially in the diabetic population. Examination of lungs and heart limited by PPE Stomach is benign on exam Neurologically no focal deficits. Diagnoses: 1. Sepsis from deep soft tissue infection with possible Naldo's abscess 2. Anion gap acidosis from DKA and a type II diabetic 3. Coma secondary to above, improved 4. Non-anion gap acidosis 5. Acute hypoxic respiratory failure with concern for SARS, 2-CoViD19 See H&P, labs and orders Total critical care time in coordination of care, reexamination transferred to negative airflow room 120 minutes
--- NOTE | 2019-12-21 18:17 | Operative Report ---
Nonrecallable Operative Report DATE OF SURGERY: 12/21/19 PREOPERATIVE DIAGNOSIS: sepsis, left perineal/buttock abscess. r/o covid POSTOPERATIVE DIAGNOSIS: sepsis, left perineal/buttock abscess. r/o covid OPERATION: debridement of left perineal/buttock abscess SURGEON: JESSICA LAZARO ANESTHESIA: Moderate Sedation TISSUE REMOVED OR ALTERED: skin/muscle for left perineal/buttock ischial fossa COMPLICATIONS: none ESTIMATED BLOOD LOSS: 25cc INTRAOPERATIVE FINDINGS: see note PROCEDURE: This patient is admitted to the intensive care unit intubated with sepsis bilateral pulmonary infiltrates rule out covid, and a left posterior perineal buttock abscess with necrotic skin. The procedure is being done for debridement of the perineal and buttock area on the left side of the inner thigh over the issue him. Patient is in the ICU intubated on a propofol drip with Dilaudid given for pain control. Patient was in a supine position the left leg was root was raised and held in place by surgical dental assistant and the posterior thigh buttock and perineum were prepped with Betadine. Using the Bovie cautery a circumferential incision was made around the area of skin necrosis approximately 15 cm long by 8 cm wide we carried our dissection down through subcutaneous tissue with the Bovie to to the fat of the posterior thigh and this extended down to the hernial muscles. The muscles themselves were only minimally involved in the necrosis and the necrotic fibrofatty tissue and some muscle were dissected off the muscle the normal- appearing muscles with the Bovie cautery this extended all the way to the upper thigh posteriorly and to the labia medially and almost down to the rectum. About 2 cm from the anal verge. We care we continued our dissection with Bovie cautery until all necrotic tissue was debrided away and the muscles were viable and the fat appeared to be viable. We then dressed the wound with a Betadine soaked Kerlix gauze and then a sterile dressing was applied on top of that he was sent for cultures. This completed the procedure sponge needle counts were correct x2. The procedure was accomplished in the negative pressure room in the intensive care unit.
[2019-12-21 19:29] LABS: ANION GAP 8 (5-19); BLOOD UREA NITROGEN 30 mg/dL (7-20); CALCIUM 8.9 mg/dL (8.4-10.2); CARBON DIOXIDE 15 mmol/L (22-30); CHLORIDE 118 mmol/L (98-107); GLUCOSE 157 mg/dL (75-110); PHOSPHORUS 1.8 mg/dL (2.5-4.5); POTASSIUM 3.3 mmol/L (3.6-5.0)
[2019-12-21] MEDS ORDERED: DEXTROSE 5%-NORMAL SALINE 1,000 ML IV PRN (22:07)
[2019-12-21 22:25] LABS: BLOOD UREA NITROGEN 30 mg/dL (7-20); CALCIUM 8.4 mg/dL (8.4-10.2); CARBON DIOXIDE 21 mmol/L (22-30); CHLORIDE 117 mmol/L (98-107); GLUCOSE 247 mg/dL (75-110); PHOSPHORUS 1.7 mg/dL (2.5-4.5)
[2019-12-21 22:38] LABS: ANION GAP 4 (5-19); POTASSIUM 4.2 mmol/L (3.6-5.0)
[2019-12-21] MEDS: INSULIN REG, HUMAN 100 UNIT/ML 3 ML VIAL (PYX) SUBCUT SCH (23:56)
[2019-12-22 01:32] LABS: ANION GAP 8 (5-19); BLOOD UREA NITROGEN 30 mg/dL (7-20); CALCIUM 8.8 mg/dL (8.4-10.2); CARBON DIOXIDE 17 mmol/L (22-30); CHLORIDE 117 mmol/L (98-107); GLUCOSE 306 mg/dL (75-110); PHOSPHORUS 2.1 mg/dL (2.5-4.5); POTASSIUM 3.9 mmol/L (3.6-5.0)
[2019-12-22] MEDS: PROPOFOL 1,000 MG/100 ML INFUS..BTL IV PRN ×4 (01:32→21:58)
[2019-12-22] MEDS: HEPARIN SOD (PORCINE) 5,000 UNIT/ML 1 ML VIAL SUBCUT SCH ×3 (05:08→21:50)
[2019-12-22] MEDS: NORMAL SALINE 1000 ML 1,000 ML IV PRN ×3 (05:30→18:12)
[2019-12-22] MEDS: INSULIN REG, HUMAN 100 UNIT/ML 3 ML VIAL (PYX) SUBCUT SCH ×4 (05:35→23:29)
[2019-12-22 06:16] LABS: HEMATOCRIT 34.2 % (36.0-47.0); MEAN CORPUSCULAR HEMOGLOBIN 26.6 pg (27.0-33.4); MEAN CORPUSCULAR HGB CONC 33.7 g/dL (32.0-36.0); MEAN CORPUSCULAR VOLUME 79 fl (80-97); PLATELET COUNT 286 10^3/uL (150-450); RED BLOOD COUNT 4.34 10^6/uL (3.72-5.28); RED CELL DISTRIBUTION WIDTH 17.2 % (11.5-14.0); WHITE BLOOD COUNT 22.2 10^3/uL (4.0-10.5)
[2019-12-22 06:19] LABS: INTERNATIONAL RATION (INR) 1.13; PARTIAL THROMBOPLASTIN TIME 29.9 SEC (23.5-35.8); PROTHROMBIN TIME 14.6 SEC (11.4-15.4)
[2019-12-22 06:21] LABS: HEMOGLOBIN 11.5 g/dL (12.0-15.5)
[2019-12-22 06:40] LABS: ALBUMIN 2.2 g/dL (3.5-5.0); ALKALINE PHOSPHATASE 183 U/L (38-126); ASPARTATE AMINO TRANSFERASE 18 U/L (14-36); BILIRUBIN,TOTAL 0.2 mg/dL (0.2-1.3); BLOOD UREA NITROGEN 31 mg/dL (7-20); CALCIUM 8.6 mg/dL (8.4-10.2); CREATINE KINASE 55 U/L (30-135); GLUCOSE 376 mg/dL (75-110); PHOSPHORUS 1.7 mg/dL (2.5-4.5); POTASSIUM 3.7 mmol/L (3.6-5.0); TOTAL PROTEIN 5.2 g/dL (6.3-8.2)
[2019-12-22 07:27] LABS: CARBON DIOXIDE 18 mmol/L (22-30); CHLORIDE 118 mmol/L (98-107)
[2019-12-22 07:29] LABS: ANION GAP 6 (5-19)
[2019-12-22 08:26] LABS: ABSOLUTE LYMPHOCYTES# (MANUAL) 2.2 10^3/uL (0.5-4.7); ABSOLUTE MONOCYTES # (MANUAL) 1.3 10^3/uL (0.1-1.4); BASOPHILS % (MANUAL) 0 % (0-2); EOSINOPHILS % (MANUAL) 1 % (0-6); LYMPHOCYTES % (MANUAL) 10 % (13-45); MONOCYTES % (MANUAL) 6 % (3-13); SEGMENTED NEUTROPHILS % (MAN) 83 % (42-78); TOTAL CELLS COUNTED 100
[2019-12-22 08:27] LABS: ANISOCYTOSIS 1+; PLATELET COMMENT ADEQUATE; TARGET CELLS SLIGHT; TOXIC VACUOLATION PRESENT
[2019-12-22] MEDS: CEFEPIME HCL 2 GM in DEXTROSE 5%-WATER 50 ML IV SCH ×2 (11:11→21:58)
[2019-12-22] MEDS: PANTOPRAZOLE SODIUM 40 MG VIAL IV SCH ×2 (11:12→21:51)
[2019-12-22] MEDS: VANCOMYCIN HCL 1,250 MG in DEXTROSE 5%-WATER 250 ML IV SCH (12:24)
[2019-12-22 12:55] LABS: BLOOD UREA NITROGEN 30 mg/dL (7-20); CALCIUM 8.2 mg/dL (8.4-10.2); GLUCOSE 307 mg/dL (75-110); PHOSPHORUS 1.5 mg/dL (2.5-4.5); POTASSIUM 3.2 mmol/L (3.6-5.0)
[2019-12-22 13:01] LABS: CARBON DIOXIDE 19 mmol/L (22-30); CHLORIDE 120 mmol/L (98-107)
[2019-12-22 13:18] LABS: ANION GAP 4 (5-19)
[2019-12-22 13:59] LABS: PATH REVIEW PATHOLOGIST REVIEWED
[2019-12-22 15:11] LABS: ANION GAP 6 (5-19); BLOOD UREA NITROGEN 29 mg/dL (7-20); CALCIUM 8.1 mg/dL (8.4-10.2); CARBON DIOXIDE 18 mmol/L (22-30); CHLORIDE 119 mmol/L (98-107); GLUCOSE 260 mg/dL (75-110); PHOSPHORUS 1.7 mg/dL (2.5-4.5); POTASSIUM 3.1 mmol/L (3.6-5.0)
[2019-12-22 18:42] LABS: BLOOD UREA NITROGEN 29 mg/dL (7-20); GLUCOSE 168 mg/dL (75-110); PHOSPHORUS 1.9 mg/dL (2.5-4.5); POTASSIUM 3.2 mmol/L (3.6-5.0)
[2019-12-22 18:47] LABS: CARBON DIOXIDE 19 mmol/L (22-30); CHLORIDE 120 mmol/L (98-107)
[2019-12-22 18:50] LABS: ANION GAP 4 (5-19)
--- NOTE | 2019-12-22 19:04 | PDOC CRITICAL CARE PROG REPORT ---
General Date:: 12/22/19 ICU Day:: 2 Ventilator Day:: 2 Hospital Day:: 2 Resuscitation Status: Full Code Medical Power of Program Management Manager: DaughterShira Events in the past 12 to 24 Hours:: 12.22.2019: Patient underwent debridement of the abscess in the left medial thigh. This was done in the ICU in a negative airflow room. Attempts at weaning today were thwarted by excess sedation and the awaiting of SARS, 2-CoViD19 specimen response Blood pressures are slightly lower than yesterday but not requiring vasopressor therapy. She has not had any significant hypoxia and is on conventional vent settings with 40% FiO2. Review of systems relevant to events:: 12.22.2019: Blood cultures are thus far negative wound cultures are showing gram- positive cocci and rods. He is on broad-spectrum antibiotics including vancomycin Blood cell count has improved. No chest x-rays are done because of the SARS, 2- CoViD19 concern. Blood sugars have been elevated and she is still on insulin drip however her anion gap is closed Reason for ICU Addmission:: Profound metabolic acidosis, Respiratory Failure, DKA. - Medications: Medications reviewed and adjusted accordingly: Yes Vasopressors:: None Sedation:: Propofol and Dilaudid Physical Exam Vital Signs: Temp Pulse Resp BP Pulse Ox 99.3 F 96 16 94/61 L 97 12/22/19 16:00 12/21/19 20:00 12/22/19 16:49 12/22/19 16:49 12/22/19 16:49 Intake & Output 12/21/19 12/22/19 12/23/19 06:59 06:59 06:59 Intake Total 1061 7137 2393 Output Total 950 1230 340 Balance 111 5907 3 Weight 67.3 kg 67.3 kg 67.3 kg Weight/Height Weight 67.3 kg Height 5 ft 3 in General appearance: PRESENT: no acute distress, morbidly obese Exam: Intubated ill-appearing nontoxic obese 59-year-old female appears older than stated age Eye exam: PRESENT: PERRLA. ABSENT: conjunctival injection, nystagmus, scleral icterus Mouth exam: PRESENT: moist, neck supple Neck exam: ABSENT: JVD, lymphadenopathy, tenderness, thyromegaly Respiratory exam: PRESENT: unlabored, other - Lung sounds not auscultated secondary to the confines of PPE and poor auditory capability of disposable stethoscope. ABSENT: accessory muscle use, tachypnea Cardiovascular exam: PRESENT: other - Heart sounds not auscultated secondary to the confines of PPE and poor auditory capability of disposable stethoscope. ABSENT: bradycardia, irregular rhythm, tachycardia Pulses: PRESENT: +1 pedal pulses bilateral Vascular exam: PRESENT: normal capillary refill GI/Abdominal exam: PRESENT: soft, other - Gastric sounds not auscultated secondary to the confines of PPE and poor auditory capability of disposable stethoscope. ABSENT: ascites, firm, guarding, Jones's sign, organolmegaly, rigid, tenderness Rectal exam: PRESENT: deferred Gentrourinary exam: PRESENT: indwelling catheter Extremities exam: PRESENT: pedal edema Musculoskeletal exam: PRESENT: other - Left medial thigh abscess wound inspected. It is packed. Erythema is much improved there is no discharge. There does not appear to be any necrosis or worsening soft tissue changes.. ABSENT: normal inspection Neurological exam: PRESENT: altered, other - Moves to noxious stimulus but deeply sedated secondary to SARS, 2-CoViD19 Psychiatric exam: PRESENT: appropriate affect Skin exam: PRESENT: dry, intact, normal color, warm. ABSENT: cyanosis, mottled, rash Tubes/Lines: PRESENT: Endotracheal Tube, Central Line, Arterial Catheter, Other - OG tube, Bryan type urinary catheter Laboratory/Radiographs Laboratory Results: 12/22/19 05:20 12/21/19 12/21/19 12/22/19 18:51 21:57 00:52 WBC RBC Hgb Hct MCV MCH MCHC RDW Plt Count Seg Neutrophils % Sodium 140.9 141.5 142.2 Potassium 3.3 L 4.2 3.9 Chloride 118 H 117 H 117 H Carbon Dioxide 15 L 21 L 17 L Anion Gap 8 4 L 8 BUN 30 H 30 H 30 H Creatinine 0.87 0.81 0.80 Est GFR ( Amer) > 60 > 60 > 60 Glucose 157 H 247 H 306 H Lactic Acid Calcium 8.9 8.4 8.8 Phosphorus 1.8 L 1.7 L 2.1 L Magnesium 1.9 1.9 1.8 Ferritin Total Bilirubin AST Alkaline Phosphatase Ammonia C-Reactive Protein Total Protein Albumin 12/22/19 12/22/19 12/22/19 05:20 05:20 05:20 WBC 22.2 H RBC 4.34 Hgb 11.5 L D Hct 34.2 L MCV 79 L MCH 26.6 L MCHC 33.7 RDW 17.2 H Plt Count 286 Seg Neutrophils % Not Reportable Sodium 141.9 Potassium 3.7 Chloride 118 H Carbon Dioxide 18 L Anion Gap 6 BUN 31 H Creatinine 0.83 Est GFR ( Amer) > 60 Glucose 376 H Lactic Acid Calcium 8.6 Phosphorus 1.7 L Magnesium 1.9 Ferritin 1090.00 H Total Bilirubin 0.2 AST 18 Alkaline Phosphatase 183 H Ammonia 43.5 H C-Reactive Protein 265.0 H Total Protein 5.2 L Albumin 2.2 L 12/22/19 12/22/19 12/22/19 05:20 12:20 14:45 WBC RBC Hgb Hct MCV MCH MCHC RDW Plt Count Seg Neutrophils % Sodium 142.7 142.5 Potassium 3.2 L 3.1 L Chloride 120 H 119 H Carbon Dioxide 19 L 18 L Anion Gap 4 L 6 BUN 30 H 29 H Creatinine 0.80 0.77 Est GFR ( Amer) > 60 > 60 Glucose 307 H 260 H Lactic Acid 1.3 Calcium 8.2 L 8.1 L Phosphorus 1.5 L 1.7 L Magnesium 1.9 1.9 Ferritin Total Bilirubin AST Alkaline Phosphatase Ammonia C-Reactive Protein Total Protein Albumin 12/20/19 22:35 Blood Blood Culture (PCR) - Final 12/22/19 05:20 Creatine Kinase 55 Impressions: Abdomen/Pelvis CT 12/20/19 23:13 IMPRESSION: 1. 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 Arterial flow reconstitutes at the level of the left external iliac artery. Immediate Surgical referral advised. 2. Moderate patchy airspace opacities of the partially imaged lower lung. Differential etiologies include infectious, inflammatory, and neoplastic processes. Recommend CR/CT surveillance including at 7-12 weeks following initiation of any clinically warranted therapy. 3. 10 x 8 x 5 cm subcutaneous emphysema and edema of the posterior medial left upper leg. Advanced infectious etiology suspected. Gas bubbles could be due to advanced necrotizing component or iatrogenic. NOTE: Side is discordant from given clinical history. Please correlate. 4. Moderate lipomatous collection probably due to a benign soft tissue lipoma at the anterior aspect of the left femoral shaft , deep left gluteal, and of the medial left intermuscular upper leg, partially imaged. KUB X-Ray 12/21/19 00:00 IMPRESSION: Tip of an enteric tube is at the distal esophagus. Consider 16 cm advancement or replacement. Chest X-Ray 12/21/19 02:20 IMPRESSION: Endotracheal tube tip lower limits of acceptable, 1.8 cm above the sara. New/progressive areas of airspace consolidative changes with associated interstitial prominence bilaterally. All labs, radiographs, diagnostic studies and EKGs were personally reviewed: Yes In addition, reports of radiographic and diagnostic studies were read: Yes Assessment and Plan - Diagnosis (1) Sepsis Qualifiers: Sepsis type: sepsis due to unspecified organism Sepsis acute organ dysfunction status: unspecified Qualified Code(s): A41.9 - Sepsis, unspecified organism Is this a current diagnosis for this admission?: Yes (2) Acute respiratory failure with hypoxia Is this a current diagnosis for this admission?: Yes (3) Suspected COVID-19 virus infection Is this a current diagnosis for this admission?: Yes (4) Soft tissue abscess Is this a current diagnosis for this admission?: Yes (5) DKA (diabetic ketoacidoses) Qualifiers: Diabetes mellitus type: due to underlying condition Diabetes mellitus complication detail: without coma Qualified Code(s): E08.10 - Diabetes m ellitus due to underlying condition with ketoacidosis without coma Is this a current diagnosis for this admission?: Yes (6) Obesity (BMI 35.0-39.9 without comorbidity) Is this a current diagnosis for this admission?: Yes Plan Summary: 12.22.2019: Patient's overall condition has improved and her infection appears to be improving as well. Pressures are slightly lower than when she was admitted however she has been heavily sedated so as to prevent inadvertent extubation du ring this SARS, 2-CoViD19 pandemic. We are waiting final testing results to extubate in a negative airflow room She is being treated for the gram-positive's and any possible gram-negative's. We will continue insulin drip and watch for recrudescence of any acidosis. Tomorrow, if SARS, 2-CoViD19 results are back, we will attempt to liberate from ventilator. Continue to follow culture results Descalate antibiotics as needed It was previously felt to be a necrotizing soft tissue infection and the muscle was involved but she is much improved. Critical Time Critical Time (minutes): 40 Level of Care: ICU -: 1. The care of a critical patient is a dynamic process. This note is a patient access representative synopsis but static in nature. The timeframe for treatments given in order is not necessarily the actual time these treatments may have been done. 2. This patient requires critical care secondary to ongoing requirements for therapy not offered or safe outside the critical care environment. Transfer to a lower level of care will result in altered life or limb morbidity and mortality. 3. Multidisciplinary rounds completed. 4. ABCDE bundle addressed.
[2019-12-23] MEDS: NORMAL SALINE 1000 ML 1,000 ML IV PRN ×2 (01:21→08:15)
[2019-12-23 03:39] LABS: ARTERIAL BLOOD BASE EXCESS -7.2 mmol/L; ARTERIAL BLOOD FIO2 30%; ARTERIAL BLOOD H2CO3 0.84 mmol/L (1.05-1.35); ARTERIAL BLOOD HCO3 16.6 mmol/L (20-24); ARTERIAL BLOOD O2 SATURATION 97.9 % (94-98); ARTERIAL BLOOD PCO2 27.9 mmHg (35-45); ARTERIAL BLOOD PH 7.39 (7.35-7.45); ARTERIAL BLOOD PO2 104.8 mmHg (80-100); ARTERIAL BLOOD TOTAL CO2 17.4 mmol/L (21-25)
[2019-12-23 04:01] LABS: ABSOLUTE EOSINOPHILS # (AUTO) 0.1 10^3/uL (0.0-0.6); ABSOLUTE MONOCYTES (AUTO) 0.8 10^3/uL (0.1-1.4); ABSOLUTE NEUT (AUTO) 15.1 10^3/uL (1.7-8.2); BASOPHILS % (AUTO) 0.3 % (0-2); EOSINOPHILS % (AUTO) 0.3 % (0-6); HEMATOCRIT 29.7 % (36.0-47.0); LYMPHOCYTES % (AUTO) 15.8 % (13-45); MEAN CORPUSCULAR HEMOGLOBIN 26.1 pg (27.0-33.4); MEAN CORPUSCULAR HGB CONC 33.7 g/dL (32.0-36.0); MEAN CORPUSCULAR VOLUME 78 fl (80-97); PLATELET COUNT 259 10^3/uL (150-450); RED BLOOD COUNT 3.83 10^6/uL (3.72-5.28); RED CELL DISTRIBUTION WIDTH 16.9 % (11.5-14.0); SEGMENTED NEUTROPHILS % (AUTO) 79.6 % (42-78); TOTAL CELLS COUNTED % (AUTO) 100 %; WHITE BLOOD COUNT 18.9 10^3/uL (4.0-10.5)
[2019-12-23 04:10] LABS: BLOOD UREA NITROGEN 24 mg/dL (7-20); CALCIUM 7.8 mg/dL (8.4-10.2); CARBON DIOXIDE 18 mmol/L (22-30); CHLORIDE 123 mmol/L (98-107); GLUCOSE 215 mg/dL (75-110); PHOSPHORUS 1.8 mg/dL (2.5-4.5); POTASSIUM 3.2 mmol/L (3.6-5.0)
[2019-12-23 04:24] LABS: C-REACTIVE PROTEIN 153.6 mg/L (<10.0)
[2019-12-23 04:40] LABS: ANION GAP 3 (5-19)
[2019-12-23] MEDS: PROPOFOL 1,000 MG/100 ML INFUS..BTL IV PRN ×2 (05:08→11:26)
[2019-12-23] MEDS: HEPARIN SOD (PORCINE) 5,000 UNIT/ML 1 ML VIAL SUBCUT SCH ×3 (05:09→22:57)
[2019-12-23] MEDS: INSULIN REG, HUMAN 100 UNIT/ML 3 ML VIAL (PYX) SUBCUT SCH ×4 (05:10→23:14)
[2019-12-23] MEDS ORDERED: POTASSIUM PHOS,M-BASIC-D-BASIC 30 MMOL in DEXTROSE 5%-WATER 250 ML IV ONE (08:30)
[2019-12-23] MEDS: PANTOPRAZOLE SODIUM 40 MG VIAL IV SCH (10:52)
[2019-12-23] MEDS: CEFEPIME HCL 2 GM in DEXTROSE 5%-WATER 50 ML IV SCH ×2 (10:52→22:57)
[2019-12-23] MEDS: VANCOMYCIN HCL 1,250 MG in DEXTROSE 5%-WATER 250 ML IV SCH (10:53)
--- NOTE | 2019-12-23 16:46 | PDOC CRITICAL CARE PROG REPORT ---
General Date:: 12/23/19 ICU Day:: 3 Ventilator Day:: 3 Hospital Day:: 3 Resuscitation Status: Full Code Medical Power of Tamping Machine Operator Road Forms: DaughterShira Events in the past 12 to 24 Hours:: 12.23.2019: Patient's condition continues to improve. She is not on any vasopressor therapy. Wound appears to be clean and dry and there is no more foul odor. Respiratory viral PCR panel is negative. We are still awaiting SARS, 2-CoViD19 testing. Patient sedation is being weaned in preparation for potential for vent weaning 12.22.2019: Patient underwent debridement of the abscess in the left medial thigh. This was done in the ICU in a negative airflow room. Attempts at weaning today were thwarted by excess sedation and the awaiting of SARS, 2-CoViD19 specimen response Blood pressures are slightly lower than yesterday but not requiring vasopressor therapy. She has not had any significant hypoxia and is on conventional vent settings with 40% FiO2. Review of systems relevant to events:: 12.23.2019: Glucose levels have improved and she is now off her insulin drip. Cultures are showing gram-positive's in the bloodstream and in wound. Urine output has been low. Inflammatory parameters have improved. Beta hydroxybutyrate is not yet 12.22.2019: Blood cultures are thus far negative wound cultures are showing gram-positive cocci and rods. He is on broad-spectrum antibiotics including vancomycin Blood cell count has improved. No chest x-rays are done because of the SARS, 2- CoViD19 concern. Blood sugars have been elevated and she is still on insulin drip however her anion gap is closed Reason for ICU Addmission:: Profound metabolic acidosis, Respiratory Failure, DKA. - Medications: Vasopressors:: None Sedation:: Propofol and Dilaudid Physical Exam Vital Signs: Temp Pulse Resp BP Pulse Ox 99.1 F 87 18 104/67 98 12/23/19 05:26 12/22/19 20:00 12/23/19 14:15 12/23/19 13:50 12/23/19 14:15 Intake & Output 12/22/19 12/23/19 12/24/19 06:59 06:59 06:59 Intake Total 7120 3638 1536 Output Total 1230 835 320 Balance 5907 2803 1216 Weight 67.3 kg 70 kg Weight/Height Weight 70 kg Height 5 ft 3 in General appearance: PRESENT: no acute distress, morbidly obese Exam: Debated nontoxic older appearing 59-year-old black female no acute distress lots of to noxious stimulus. Eye exam: PRESENT: conjunctiva pink, PERRLA. ABSENT: conjunctival injection, nystagmus, scleral icterus Mouth exam: PRESENT: moist Neck exam: ABSENT: JVD, lymphadenopathy, thyromegaly Respiratory exam: PRESENT: unlabored, other - Lung sounds not auscultated secondary to the confines of PPE and poor auditory capability of disposable stethoscope. ABSENT: accessory muscle use, tachypnea Cardiovascular exam: PRESENT: RRR, other - Heart sounds not auscultated secondary to the confines of PPE and poor auditory capability of disposable stethoscope. ABSENT: bradycardia, irregular rhythm, tachycardia Pulses: ABSENT: normal dorsalis pedis pul GI/Abdominal exam: PRESENT: soft, other - Gastric sounds not auscultated secondary to the confines of PPE and poor auditory capability of disposable stethoscope. ABSENT: ascites, organolmegaly, tenderness Rectal exam: PRESENT: deferred Gentrourinary exam: PRESENT: indwelling catheter Extremities exam: PRESENT: pedal edema Musculoskeletal exam: PRESENT: deformity, dislocation, other - Left medial groin site is less erythema and significant improvement. Tissues appear to be healthy around the packing. Pictures taken showing extent of removal down to muscle. Neurological exam: PRESENT: altered - Sedated heavily secondary to concern for self extubation. Moves all extremities without any focal deficits Psychiatric exam: PRESENT: appropriate affect Skin exam: PRESENT: normal color, other - See musculoskeletal above. ABSENT: mottled Tubes/Lines: PRESENT: Endotracheal Tube, Central Line, Arterial Catheter - Orogastric tube, Bryan type urinary catheter Laboratory/Radiographs Laboratory Results: 12/23/19 03:26 12/23/19 11:31 12/22/19 12/23/19 12/23/19 18:08 03:26 03:26 WBC RBC Hgb Hct MCV MCH MCHC RDW Plt Count Seg Neutrophils % Carbonic Acid 0.84 L HCO3/H2CO3 Ratio 19:1 ABG pH 7.39 ABG pCO2 27.9 L ABG pO2 104.8 H ABG HCO3 16.6 L ABG O2 Saturation 97.9 ABG Base Excess -7.2 FiO2 30% Sodium 143.3 144.4 Potassium 3.2 L 3.2 L Chloride 120 H 123 H Carbon Dioxide 19 L 18 L Anion Gap 4 L 3 L BUN 29 H 24 H Creatinine 0.75 0.77 Est GFR ( Amer) > 60 > 60 Glucose 168 H 215 H Lactic Acid Calcium 8.0 L 7.8 L Phosphorus 1.9 L 1.8 L Magnesium 1.9 1.8 Ferritin 688.00 H C-Reactive Protein 153.6 H 12/23/19 12/23/19 12/23/19 03:26 03:26 11:31 WBC 18.9 H RBC 3.83 Hgb 10.0 L Hct 29.7 L MCV 78 L MCH 26.1 L MCHC 33.7 RDW 16.9 H Plt Count 259 Seg Neutrophils % 79.6 H Carbonic Acid HCO3/H2CO3 Ratio ABG pH ABG pCO2 ABG pO2 ABG HCO3 ABG O2 Saturation ABG Base Excess FiO2 Sodium Potassium Chloride Carbon Dioxide Anion Gap BUN Creatinine Est GFR ( Amer) Glucose 254 H Lactic Acid 1.1 Calcium Phosphorus Magnesium Ferritin C-Reactive Protein 12/21/19 06:27 Sputum Gram Stain - Final 12/21/19 06:27 Sputum Sputum Culture - Final Haemophilus Influenzae Normal Sommer 12/20/19 22:35 Blood Blood Culture (PCR) - Final 12/22/19 05:20 Creatine Kinase 55 Impressions: Abdomen/Pelvis CT 12/20/19 23:13 IMPRESSION: 1. 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 Arterial flow reconstitutes at the level of the left external iliac artery. Immediate Surgical referral advised. 2. Moderate patchy airspace opacities of the partially imaged lower lung. Differential etiologies include infectious, inflammatory, and neoplastic processes. Recommend CR/CT surveillance including at 7-12 weeks following initiation of any clinically warranted therapy. 3. 10 x 8 x 5 cm subcutaneous emphysema and edema of the posterior medial left upper leg. Advanced infectious etiology suspected. Gas bubbles could be due to advanced necrotizing component or iatrogenic. NOTE: Side is discordant from given clinical history. Please correlate. 4. Moderate lipomatous collection probably due to a benign soft tissue lipoma at the anterior aspect of the left femoral shaft , deep left gluteal, and of the medial left intermuscular upper leg, partially imaged. KUB X-Ray 12/21/19 00:00 IMPRESSION: Tip of an enteric tube is at the distal esophagus. Consider 16 cm advancement or replacement. Chest X-Ray 12/21/19 02:20 IMPRESSION: Endotracheal tube tip lower limits of acceptable, 1.8 cm above the sara. New/progressive areas of airspace consolidative changes with associated interstitial prominence bilaterally. All labs, radiographs, diagnostic studies and EKGs were personally reviewed: Yes In addition, reports of radiographic and diagnostic studies were read: Yes Assessment and Plan - Diagnosis (1) Sepsis Qualifiers: Sepsis type: sepsis due to unspecified organism Sepsis acute organ dysfunction status: unspecified Qualified Code(s): A41.9 - Sepsis, unspecified organism Is this a current diagnosis for this admission?: Yes (2) Acute respiratory failure with hypoxia Is this a current diagnosis for this admission?: Yes (3) Suspected COVID-19 virus infection Is this a current diagnosis for this admission?: Yes (4) Soft tissue abscess Is this a current diagnosis for this admission?: Yes (5) DKA (diabetic ketoacidoses) Qualifiers: Diabetes mellitus type: due to underlying condition Diabetes mellitus complication detail: without coma Qualified Code(s): E08.10 - Diabetes mellitus due to underlying condition with ketoacidosis without coma Is this a current diagnosis for this admission?: Yes (6) Obesity (BMI 35.0-39.9 without comorbidity) Is this a current diagnosis for this admission?: Yes Plan Summary: 12.23.2019: Patient is improving in the expected trajectory. We will begin the process of de-escalation sedation in an attempt to liberate from the ventilator. Would be helpful to have SARS, 2-CoViD19 testing prior to extubation and hopefully this will be within the next 12 to 24 hours. When placed on pressure support she did not have an acceptable rate or tidal volume and she was placed on SIMV to follow her respiratory involvement She is on broad-spectrum antibiotics until we have speciation of cultures. Repeat cultures have been ordered. Continue nutritional support and supportive care Continue to monitor glucose and support with subcutaneous insulin Begin diuresis today in an attempt to liberate the patient from the ventilator Replace electrolytes When patient arrived she had the ground looking fluid in OG output. She was placed on twice daily Protonix. Have reduce this to once a day. Her chest x-ray was consistent with early ARDS or possible viral pneumonia. We are awaiting COVID is also however viral PCR is negative 4.13.2020: Patient's overall condition has improved and her infection appears to be improving as well. Pressures are slightly lower than when she was admitted however she has been heavily sedated so as to prevent inadvertent extubation during this SARS, 2-CoViD19 pandemic. We are waiting final testing results to extubate in a negative airflow room She is being treated for the gram-positive's and any possible gram-negative's. We will continue insulin drip and watch for recrudescence of any acidosis. Tomorrow, if SARS, 2-CoViD19 results are back, we will attempt to liberate from ventilator. Continue to follow culture results Descalate antibiotics as needed It was previously felt to be a necrotizing soft tissue infection and the muscle was involved but she is much improved. Critical Time Critical Time (minutes): 42 Level of Care: ICU -: 1. The care of a critical patient is a dynamic process. This note is a physician relations representative synopsis but static in nature. The timeframe for treatments given in order is not necessarily the actual time these treatments may have been done. 2. This patient requires critical care secondary to ongoing requirements for therapy not offered or safe outside the critical care environment. Transfer to a lower level of care will result in altered life or limb morbidity and mortality. 3. Multidisciplinary rounds completed. 4. ABCDE bundle addressed.
[2019-12-23] MEDS: FUROSEMIDE INJ/PF 20 MG/2 ML SDV IV SCH ×2 (18:01→22:57)
[2019-12-23] MEDS: DEXMEDETOMIDINE IN 0.9 % NACL 400 MCG/100 ML RTUPB IV PRN ×2 (18:08→22:56)
--- NOTE | 2019-12-23 19:45 | PDOC PROGRESS REPORT ---
Subjective Progress Note for:: 12/23/19 Subjective:: Still intubated. Attempting to be weaned. Reason For Visit: DKA,LEFT LEG ABSCESS,RESPIRATORY FAILURE Physical Exam Vital Signs: Temp Pulse Resp BP Pulse Ox 100.4 F 87 18 104/67 100 12/23/19 19:34 12/22/19 20:00 12/23/19 14:15 12/23/19 13:50 12/23/19 16:44 Intake & Output 12/22/19 12/23/19 12/24/19 06:59 06:59 06:59 Intake Total 7137 3638 1577 Output Total 8791 459 2565 Balance 5907 2803 427 Weight 67.3 kg 70 kg Exam: Debridement site along the left buttock/perineal area looks relatively clean. R oughly measures 9 cm long by about 5 cm wide. Nurses are going to start wet-to-dry dressings with diluted Betadine soaked gauze every 12 hours. Results Laboratory Results: 12/23/19 03:26 12/23/19 11:31 12/23/19 12/23/19 12/23/19 03:26 03:26 03:26 WBC 18.9 H RBC 3.83 Hgb 10.0 L Hct 29.7 L MCV 78 L MCH 26.1 L MCHC 33.7 RDW 16.9 H Plt Count 259 Seg Neutrophils % 79.6 H Carbonic Acid 0.84 L HCO3/H2CO3 Ratio 19:1 ABG pH 7.39 ABG pCO2 27.9 L ABG pO2 104.8 H ABG HCO3 16.6 L ABG O2 Saturation 97.9 ABG Base Excess -7.2 FiO2 30% Sodium 144.4 Potassium 3.2 L Chloride 123 H Carbon Dioxide 18 L Anion Gap 3 L BUN 24 H Creatinine 0.77 Est GFR ( Amer) > 60 Glucose 215 H Lactic Acid Calcium 7.8 L Phosphorus 1.8 L Magnesium 1.8 Ferritin 688.00 H C-Reactive Protein 153.6 H 12/23/19 12/23/19 03:26 11:31 WBC RBC Hgb Hct MCV MCH MCHC RDW Plt Count Seg Neutrophils % Carbonic Acid HCO3/H2CO3 Ratio ABG pH ABG pCO2 ABG pO2 ABG HCO3 ABG O2 Saturation ABG Base Excess FiO2 Sodium Potassium Chloride Carbon Dioxide Anion Gap BUN Creatinine Est GFR ( Amer) Glucose 254 H Lactic Acid 1.1 Calcium Phosphorus Magnesium Ferritin C-Reactive Protein 12/21/19 06:27 Sputum Gram Stain - Final 12/21/19 06:27 Sputum Sputum Culture - Final Haemophilus Influenzae Normal Sommer 12/20/19 22:35 Blood Blood Culture (PCR) - Final 12/22/19 05:20 Creatine Kinase 55 Impressions: Abdomen/Pelvis CT 12/20/19 23:13 IMPRESSION: 1. 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 Arterial flow reconstitutes at the level of the left external iliac artery. Immediate Surgical referral advised. 2. Moderate patchy airspace opacities of the partially imaged lower lung. Differential etiologies include infectious, inflammatory, and neoplastic processes. Recommend CR/CT surveillance including at 7-12 weeks following initiation of any clinically warranted therapy. 3. 10 x 8 x 5 cm subcutaneous emphysema and edema of the posterior medial left upper leg. Advanced infectious etiology suspected. Gas bubbles could be due to advanced necrotizing component or iatrogenic. NOTE: Side is discordant from given clinical history. Please correlate. 4. Moderate lipomatous collection probably due to a benign soft tissue lipoma at the anterior aspect of the left femoral shaft , deep left gluteal, and of the medial left intermuscular upper leg, partially imaged. KUB X-Ray 12/21/19 00:00 IMPRESSION: Tip of an enteric tube is at the distal esophagus. Consider 16 cm advancement or replacement. Chest X-Ray 12/21/19 02:20 IMPRESSION: Endotracheal tube tip lower limits of acceptable, 1.8 cm above the sara. New/progressive areas of airspace consolidative changes with associated interstitial prominence bilaterally. Assessment & Plan - Time Critical Time spent with patient: 15-24 minutes - Plan Summary Plan Summary: Postop day #2 post wide debridement of abscess of the left perineal/buttock area by . Patient still intubated and at the present time being weaned. The debridement site appears to be relatively clean. Plans: Continue IV antibiotics Continue diluted Betadine soaked gauze wet-to-dry dressings every 12 hours
[2019-12-24] MEDS ORDERED: MIDAZOLAM 2 MG/2 ML INJ ONE (00:26)
[2019-12-24] MEDS ORDERED: MIDAZOLAM 2 MG/2 ML INJ IV ONE ×2 (00:27→01:46)
[2019-12-24] MEDS: DEXMEDETOMIDINE IN 0.9 % NACL 400 MCG/100 ML RTUPB IV PRN ×4 (02:52→22:32)
[2019-12-24 03:34] LABS: HEMATOCRIT 30.8 % (36.0-47.0); HEMOGLOBIN 10.6 g/dL (12.0-15.5); MEAN CORPUSCULAR HEMOGLOBIN 26.6 pg (27.0-33.4); MEAN CORPUSCULAR HGB CONC 34.3 g/dL (32.0-36.0); MEAN CORPUSCULAR VOLUME 78 fl (80-97); PLATELET COUNT 242 10^3/uL (150-450); RED BLOOD COUNT 3.97 10^6/uL (3.72-5.28); RED CELL DISTRIBUTION WIDTH 16.3 % (11.5-14.0); WHITE BLOOD COUNT 14.9 10^3/uL (4.0-10.5)
[2019-12-24 03:45] LABS: ANION GAP 7 (5-19); BLOOD UREA NITROGEN 23 mg/dL (7-20); CALCIUM 7.8 mg/dL (8.4-10.2); CARBON DIOXIDE 19 mmol/L (22-30); CHLORIDE 118 mmol/L (98-107); GLUCOSE 330 mg/dL (75-110); PHOSPHORUS 2.5 mg/dL (2.5-4.5)
[2019-12-24] MEDS ORDERED: HYDROMORPHONE HCL INJ/PF 2 MG/ML AMPULE IV ONE ×5 (03:50→20:45)
[2019-12-24 04:00] LABS: ABSOLUTE LYMPHOCYTES# (MANUAL) 3.3 10^3/uL (0.5-4.7); ABSOLUTE MONOCYTES # (MANUAL) 0.4 10^3/uL (0.1-1.4); BAND NEUTROPHILS % (MANUAL) 6 % (3-5); BASOPHILS % (MANUAL) 0 % (0-2); EOSINOPHILS % (MANUAL) 0 % (0-6); LYMPHOCYTES % (MANUAL) 22 % (13-45); MONOCYTES % (MANUAL) 3 % (3-13); NUCLEATED RED BLOOD CELLS 2 /100 WBC (0); SEGMENTED NEUTROPHILS % (MAN) 69 % (42-78); TOTAL CELLS COUNTED 100
[2019-12-24 04:03] LABS: ANISOCYTOSIS 1+; HYPOCHROMASIA SLIGHT; PLATELET COMMENT ADEQUATE; TARGET CELLS SLIGHT; TOXIC GRANULATION SLIGHT
[2019-12-24] MEDS ORDERED: HYDROMORPHONE HCL INJ/PF 2 MG/ML AMPULE ONE ×4 (04:13→20:34)
[2019-12-24] MEDS ORDERED: POTASSIUM CHLORIDE 20 MEQ PACKET NG ONE (06:14)
[2019-12-24] MEDS ORDERED: HYDRALAZINE HCL INJ/PF 20 MG/1 ML SDV IV ONE (06:42)
[2019-12-24] MEDS ORDERED: HYDRALAZINE HCL INJ/PF 20 MG/1 ML SDV ONE (06:44)
[2019-12-24] MEDS: HEPARIN SOD (PORCINE) 5,000 UNIT/ML 1 ML VIAL SUBCUT SCH ×3 (06:49→22:19)
[2019-12-24] MEDS: FUROSEMIDE INJ/PF 20 MG/2 ML SDV IV SCH ×3 (06:50→22:19)
[2019-12-24] MEDS: INSULIN REG, HUMAN 100 UNIT/ML 3 ML VIAL (PYX) SUBCUT SCH ×3 (06:50→17:53)
[2019-12-24] MEDS: MAGNESIUM SULFATE/D5W 1 GM/100 ML RTUPB IV SCH ×2 (06:52→08:40)
[2019-12-24] MEDS ORDERED: LORAZEPAM INJ 2 MG/1 ML VIAL IV ONE ×2 (09:00→12:30)
[2019-12-24] MEDS: CEFEPIME HCL 2 GM in DEXTROSE 5%-WATER 50 ML IV SCH (09:29)
[2019-12-24] MEDS: PANTOPRAZOLE SODIUM 40 MG VIAL IV SCH (09:30)
[2019-12-24] MEDS: VANCOMYCIN HCL 1,250 MG in DEXTROSE 5%-WATER 250 ML IV SCH (09:30)
[2019-12-24] MEDS ORDERED: POTASSIUM PHOS M BASIC D BASIC IV ONE (10:00)
[2019-12-24] MEDS ORDERED: NORMAL SALINE IV ONE (10:00)
--- NOTE | 2019-12-24 11:18 | PDOC PROGRESS REPORT ---
Subjective Progress Note for:: 12/24/19 Reason For Visit: DKA,LEFT LEG ABSCESS,RESPIRATORY FAILURE Physical Exam Vital Signs: Temp Pulse Resp BP Pulse Ox 100.4 F 67 21 H 95/61 L 99 12/23/19 19:34 12/24/19 07:43 12/24/19 10:15 12/23/19 14:50 12/24/19 10:15 Intake & Output 12/23/19 12/24/19 12/25/19 06:59 06:59 06:59 Intake Total 3638 1914 800 Output Total 835 5425 1600 Balance 5174 -870 -800 Weight 70 kg 70.4 kg Results Laboratory Results: 12/24/19 03:10 12/24/19 03:10 12/23/19 12/24/19 12/24/19 11:31 03:10 03:10 WBC 14.9 H RBC 3.97 Hgb 10.6 L Hct 30.8 L MCV 78 L MCH 26.6 L MCHC 34.3 RDW 16.3 H Plt Count 242 Seg Neutrophils % Not Reportable Sodium 143.7 Potassium 3.0 L* Chloride 118 H Carbon Dioxide 19 L Anion Gap 7 BUN 23 H Creatinine 0.70 Est GFR ( Amer) > 60 Glucose 254 H 330 H Calcium 7.8 L Phosphorus 2.5 Magnesium 1.8 12/21/19 04:21 Leg - Thigh Gram Stain - Final 12/21/19 04:21 Leg - Thigh Wound Culture - Final Enterococcus Faecalis(Group D) Skin Sommer 12/21/19 18:00 Leg - Thigh Gram Stain - Final 12/20/19 22:35 Blood Blood Culture (PCR) - Final 12/21/19 06:27 Sputum Gram Stain - Final 12/21/19 06:27 Sputum Sputum Culture - Final Haemophilus Influenzae Normal Sommer 12/22/19 05:20 Creatine Kinase 55 Impressions: Abdomen/Pelvis CT 12/20/19 23:13 IMPRESSION: 1. 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 Arterial flow reconstitutes at the level of the left external iliac artery. Immediate Surgical referral advised. 2. Moderate patchy airspace opacities of the partially imaged lower lung. Differential etiologies include infectious, inflammatory, and neoplastic processes. Recommend CR/CT surveillance including at 7-12 weeks following initiation of any clinically warranted therapy. 3. 10 x 8 x 5 cm subcutaneous emphysema and edema of the posterior medial left upper leg. Advanced infectious etiology suspected. Gas bubbles could be due to advanced necrotizing component or iatrogenic. NOTE: Side is discordant from given clinical history. Please correlate. 4. Moderate lipomatous collection probably due to a benign soft tissue lipoma at the anterior aspect of the left femoral shaft , deep left gluteal, and of the medial left intermuscular upper leg, partially imaged. KUB X-Ray 12/21/19 00:00 IMPRESSION: Tip of an enteric tube is at the distal esophagus. Consider 16 cm advancement or replacement. Chest X-Ray 12/21/19 02:20 IMPRESSION: Endotracheal tube tip lower limits of acceptable, 1.8 cm above the sara. New/progressive areas of airspace consolidative changes with associated interstitial prominence bilaterally. Assessment & Plan - Diagnosis (1) Necrotizing subcutaneous infection Is this a current diagnosis for this admission?: Yes - Plan Summary Plan Summary: This is a 59-year-old female status post debridement of a necrotizing soft tissue infection of the left thigh. I have personally examined the wound to date. The wound appears clean, without signs of ongoing necrosis or infection. Continue with damp to dry dressing changes. Continue antibiotics.
[2019-12-24 12:08] LABS: VANCOMYCIN,TROUGH 13.8 ug/mL (5.0-20.0)
[2019-12-24 16:19] LABS: PHOSPHORUS 3.7 mg/dL (2.5-4.5)
[2019-12-24 16:44] LABS: ANION GAP 6 (5-19); BLOOD UREA NITROGEN 26 mg/dL (7-20); CALCIUM 7.1 mg/dL (8.4-10.2); CARBON DIOXIDE 16 mmol/L (22-30); CHLORIDE 120 mmol/L (98-107); POTASSIUM 3.7 mmol/L (3.6-5.0)
[2019-12-24 16:51] LABS: GLUCOSE 462 mg/dL (75-110)
--- NOTE | 2019-12-24 16:54 | PDOC CRITICAL CARE PROG REPORT ---
General Date:: 12/24/19 ICU Day:: 4 Ventilator Day:: 4 Hospital Day:: 4 Resuscitation Status: Full Code Medical Power of Contact Lens Curve Grinder: DaughterShira Events in the past 12 to 24 Hours:: 12.24.2019: Patient had agitation off propofol and dilaudid. Patient takes scheduled oxycodone at home. On 21% O2. No respiratory compromise. On wean and tolerating well. Still awaiting SARS, 2-CoViD19 results 12.23.2019: Patient's condition continues to improve. She is not on any vaso pressor therapy. Wound appears to be clean and dry and there is no more foul odor. Respiratory viral PCR panel is negative. We are still awaiting SARS, 2-CoViD19 testing. Patient sedation is being weaned in preparation for potential for vent weaning 12.22.2019: Patient underwent debridement of the abscess in the left medial thigh. This was done in the ICU in a negative airflow room. Attempts at weaning today were thwarted by excess sedation and the awaiting of SARS, 2-CoViD19 specimen response Blood pressures are slightly lower than yesterday but not requiring vasopressor therapy. She has not had any significant hypoxia and is on conventional vent settings with 40% FiO2. Review of systems relevant to events:: 12.24.2019: Weaning on ventilator. Bp elevated but HR low with precedex. T-max 101.8. No hypotension. Culture results show skin contaminant and enterococcus faecalis in wound. Nelson sensitive to ampicillin and penicillin. Blood cultures are negative. Still has consistently elevated blood sugars and is on subcutaneous coverage. Have started Lantus. 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 Have changed D5 containing solutions to either sterile water or normal saline. Good response to diuresis. Required electrolyte replacement Has Haemophilus species in tracheal specimen. Given the improvement in her lung physiology this may represent colonization. Have started a azithromycin. 12.23.2019: Glucose levels have improved and she is now off her insulin drip. Cultures are showing gram-positive's in the bloodstream and in wound. Urine output has been low. Inflammatory parameters have improved. Beta hydroxybutyrate is not yet 12.22.2019: Blood cultures are thus far negative wound cultures are showing gram- positive cocci and rods. He is on broad-spectrum antibiotics including vancomycin Blood cell count has improved. No chest x-rays are done because of the SARS, 2- CoViD19 concern. Blood sugars have been elevated and she is still on insulin drip however her anion gap is closed Reason for ICU Addmission:: Profound metabolic acidosis, Respiratory Failure, DKA. - Medications: Vasopressors:: None Sedation:: Precedex and prn versed. Dilaudid prn Physical Exam Vital Signs: Temp Pulse Resp BP Pulse Ox 100.4 F 97 24 H 95/61 L 99 12/23/19 19:34 12/23/19 20:00 12/24/19 06:30 12/23/19 14:50 12/24/19 06:30 Intake & Output 12/23/19 12/24/19 12/25/19 06:59 06:59 06:59 Intake Total 3638 1914 Output Total 835 2545 Balance 2803 -631 Weight 70 kg 70.4 kg Weight/Height Weight 70.4 kg Height 5 ft 3 in General appearance: PRESENT: no acute distress, morbidly obese Exam: Intubated nontoxic responsive 59-year-old black female who appears older than stated age no acute distress except when off sedation. Head exam: PRESENT: atraumatic, normocephalic Eye exam: PRESENT: conjunctiva pink, PERRLA. ABSENT: conjunctival injection, nystagmus, scleral icterus Mouth exam: PRESENT: dry mucosa Neck exam: ABSENT: JVD, lymphadenopathy, tenderness, thyromegaly Respiratory exam: PRESENT: unlabored, other - Lung sounds not auscultated secondary to the confines of PPE and poor auditory capability of disposable s tethoscope. ABSENT: accessory muscle use, tachypnea Cardiovascular exam: PRESENT: RRR, other. ABSENT: bradycardia, tachycardia GI/Abdominal exam: PRESENT: soft, other - Gastric sounds not auscultated secondary to the confines of PPE and poor auditory capability of disposable stethoscope. ABSENT: ascites, guarding, hernia, tenderness Extremities exam: ABSENT: clubbing Musculoskeletal exam: ABSENT: deformity, dislocation Neurological exam: PRESENT: altered - No focal deficits. Becomes awake and agitated moving all extremities off sedation Psychiatric exam: PRESENT: agitated - Off sedation Skin exam: PRESENT: dry, intact, warm. ABSENT: cyanosis, rash Tubes/Lines: PRESENT: Endotracheal Tube, Central Line, Arterial Catheter - Bryan type urinary catheter, orogastric tube. Central line site appears clean dry intact without erythema. Laboratory/Radiographs Laboratory Results: 12/24/19 03:10 12/24/19 03:10 12/23/19 12/24/19 12/24/19 11:31 03:10 03:10 WBC 14.9 H RBC 3.97 Hgb 10.6 L Hct 30.8 L MCV 78 L MCH 26.6 L MCHC 34.3 RDW 16.3 H Plt Count 242 Seg Neutrophils % Not Reportable Sodium 143.7 Potassium 3.0 L* Chloride 118 H Carbon Dioxide 19 L Anion Gap 7 BUN 23 H Creatinine 0.70 Est GFR ( Amer) > 60 Glucose 254 H 330 H Calcium 7.8 L Phosphorus 2.5 Magnesium 1.8 12/21/19 06:27 Sputum Gram Stain - Final 12/21/19 06:27 Sputum Sputum Culture - Final Haemophilus Influenzae Normal Sommer 12/20/19 22:35 Blood Blood Culture (PCR) - Final 12/22/19 05:20 Creatine Kinase 55 Impressions: Abdomen/Pelvis CT 12/20/19 23:13 IMPRESSION: 1. 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 Arterial flow reconstitutes at the level of the left external iliac artery. Immediate Surgical referral advised. 2. Moderate patchy airspace opacities of the partially imaged lower lung. Differential etiologies include infectious, inflammatory, and neoplastic processes. Recommend CR/CT surveillance including at 7-12 weeks following initiation of any clinically warranted therapy. 3. 10 x 8 x 5 cm subcutaneous emphysema and edema of the posterior medial left upper leg. Advanced infectious etiology suspected. Gas bubbles could be due to advanced necrotizing component or iatrogenic. NOTE: Side is discordant from given clinical history. Please correlate. 4. Moderate lipomatous collection probably due to a benign soft tissue lipoma at the anterior aspect of the left femoral shaft , deep left gluteal, and of the medial left intermuscular upper leg, partially imaged. KUB X-Ray 12/21/19 00:00 IMPRESSION: Tip of an enteric tube is at the distal esophagus. Consider 16 cm advancement or replacement. Chest X-Ray 12/21/19 02:20 IMPRESSION: Endotracheal tube tip lower limits of acceptable, 1.8 cm above the sara. New/progressive areas of airspace consolidative changes with associated interstitial prominence bilaterally. All labs, radiographs, diagnostic studies and EKGs were personally reviewed: Yes In addition, reports of radiographic and diagnostic studies were read: Yes Assessment and Plan - Diagnosis (1) Sepsis Qualifiers: Sepsis type: sepsis due to unspecified organism Sepsis acute organ dysfunction status: unspecified Qualified Code(s): A41.9 - Sepsis, unspecified organism Is this a current diagnosis for this admission?: Yes (2) Acute respiratory failure with hypoxia Is this a current diagnosis for this admission?: Yes (3) Suspected COVID-19 virus infection Is this a current diagnosis for this admission?: Yes (4) Soft tissue abscess Is this a current diagnosis for this admission?: Yes (5) DKA (diabetic ketoacidoses) Qualifiers: Diabetes mellitus type: due to underlying condition Diabetes mellitus complication detail: without coma Qualified Code(s): E08.10 - Diabetes mellitus due to underlying condition with ketoacidosis without coma Is this a current diagnosis for this admission?: Yes (6) Obesity (BMI 35.0-39.9 without comorbidity) Is this a current diagnosis for this admission?: Yes (7) Diabetic myonecrosis Is this a current diagnosis for this admission?: Yes (8) Atherosclerosis of left iliac artery Is this a current diagnosis for this admission?: Yes Plan Summary: 12.24.2019: Patient has had significant improvement and will move to liberate from the ventilator. We were awaiting the COVID results before doing so so that we do not have to extubate to a specialized SARS, 2-CoViD19 tent. De-escalated antibiotics and changed to ampicillin 2 g every 4 hours she should be on this for at least 7 days. Have started a azithromycin and she should be on this for 5 days. Will wean pain medication however patient is on chronic pain meds and will need to be monitored for any withdrawal. Have started Lantus with subcutaneous coverage. Patient has significant atherosclerotic disease with a concerning iliac artery these. She does have a palpable dorsalis pedis pulse in that left foot but is distinguishable at 1+/2+ compared to the right which is 2+/2+ on palpation. Have contacted surgery to discuss. Does not appear to be a significant issue and would need to wait for the infection to pass before anything would be done. Appears to be amenable to intravascular stenting and she will need to be referred for this. We will continue to diurese if labs are acceptable. Awaiting afternoon labs to determine if diuresis should continue 12.23.2019: Patient is improving in the expected trajectory. We will begin the process of de-escalation sedation in an attempt to liberate from the ventilator. Would be helpful to have SARS, 2-CoViD19 testing prior to extubation and hopefully this will be within the next 12 to 24 hours. When placed on pressure support she did not have an acceptable rate or tidal volume and she was placed on SIMV to follow her respiratory involvement She is on broad-spectrum antibiotics until we have speciation of cultures. Repeat cultures have been ordered. Continue nutritional support and supportive care Continue to monitor glucose and support with subcutaneous insulin Begin diuresis today in an attempt to liberate the patient from the ventilator Replace electrolytes When patient arrived she had the ground looking fluid in OG output. She was placed on twice daily Protonix. Have reduce this to once a day. Her chest x-ray was consistent with early ARDS or possible viral pneumonia. We are awaiting COVID is also however viral PCR is negative 12.22.2019: Patient's overall condition has improved and her infection appears to be improving as well. Pressures are slightly lower than when she was admitted however she has been heavily sedated so as to prevent inadvertent extubation during this SARS, 2-CoViD19 pandemic. We are waiting final testing results to extubate in a negative airflow room She is being treated for the gram-positive's and any possible gram-negative's. We will continue insulin drip and watch for recrudescence of any acidosis. Tomorrow, if SARS, 2-CoViD19 results are back, we will attempt to liberate from ventilator. Continue to follow culture results Descalate antibiotics as needed It was previously felt to be a necrotizing soft tissue infection and the muscle was involved but she is much improved. Critical Time Critical Time (minutes): 60 Level of Care: ICU -: 1. The care of a critical patient is a dynamic process. This note is a wholesale representative synopsis but static in nature. The timeframe for treatments given in order is not necessarily the actual time these treatments may have been done. 2. This patient requires critical care secondary to ongoing requirements for therapy not offered or safe outside the critical care environment. Transfer to a lower level of care will result in altered life or limb morbidity and mortality. 3. Multidisciplinary rounds completed. 4. ABCDE bundle addressed.
[2019-12-24] MEDS ORDERED: HYDRALAZINE HCL INJ/PF 20 MG/1 ML SDV IV PRN (16:56)
[2019-12-24] MEDS ORDERED: AZITHROMYCIN 500 MG in DEXTROSE 5%-WATER 250 ML IV SCH (17:00)
[2019-12-24] MEDS ORDERED: POTASSIUM CHLORIDE 20 MEQ PACKET PO ONE (17:30)
[2019-12-24] MEDS: AMPICILLIN SODIUM 2 GM in NORMAL SALINE 100 ML IV SCH ×2 (17:53→22:20)
[2019-12-24] MEDS: INSULIN GLARGINE,HUM.REC.ANLOG 1,000 UNIT/10 ML VIAL SUBCUT SCH (22:17)
[2019-12-24] MEDS: AZITHROMYCIN 500 MG in NORMAL SALINE 250 ML IV SCH (22:20)
[2019-12-25] MEDS ORDERED: HYDROMORPHONE HCL INJ/PF 2 MG/ML AMPULE IV ONE ×2 (00:55→06:45)
[2019-12-25] MEDS ORDERED: HYDROMORPHONE HCL INJ/PF 2 MG/ML AMPULE ONE ×2 (00:57→06:45)
[2019-12-25] MEDS: INSULIN REG, HUMAN 100 UNIT/ML 3 ML VIAL (PYX) SUBCUT SCH ×5 (01:13→23:48)
[2019-12-25] MEDS: AMPICILLIN SODIUM 2 GM in NORMAL SALINE 100 ML IV SCH ×6 (01:14→21:48)
[2019-12-25 04:44] LABS: HEMATOCRIT 30.1 % (36.0-47.0); HEMOGLOBIN 10.3 g/dL (12.0-15.5); MEAN CORPUSCULAR HEMOGLOBIN 26.4 pg (27.0-33.4); MEAN CORPUSCULAR HGB CONC 34.2 g/dL (32.0-36.0); MEAN CORPUSCULAR VOLUME 77 fl (80-97); PLATELET COUNT 246 10^3/uL (150-450); RED CELL DISTRIBUTION WIDTH 15.7 % (11.5-14.0)
[2019-12-25 04:45] LABS: ARTERIAL BLOOD BASE EXCESS -1.6 mmol/L; ARTERIAL BLOOD H2CO3 0.87 mmol/L (1.05-1.35); ARTERIAL BLOOD PCO2 28.8 mmHg (35-45); ARTERIAL BLOOD PH 7.48 (7.35-7.45); ARTERIAL BLOOD TOTAL CO2 21.9 mmol/L (21-25)
[2019-12-25 04:49] LABS: ARTERIAL BLOOD FIO2 21%
[2019-12-25 05:07] LABS: ANION GAP 5 (5-19); BLOOD UREA NITROGEN 26 mg/dL (7-20); CALCIUM 7.7 mg/dL (8.4-10.2); CARBON DIOXIDE 22 mmol/L (22-30); CHLORIDE 120 mmol/L (98-107); GLUCOSE 248 mg/dL (75-110); PHOSPHORUS 2.9 mg/dL (2.5-4.5); POTASSIUM 3.3 mmol/L (3.6-5.0)
[2019-12-25 05:08] LABS: ABSOLUTE LYMPHOCYTES# (MANUAL) 5.1 10^3/uL (0.5-4.7); ABSOLUTE MONOCYTES # (MANUAL) 1.4 10^3/uL (0.1-1.4); BAND NEUTROPHILS % (MANUAL) 3 % (3-5); BASOPHILS % (MANUAL) 0 % (0-2); EOSINOPHILS % (MANUAL) 0 % (0-6); LYMPHOCYTES % (MANUAL) 32 % (13-45); MONOCYTES % (MANUAL) 9 % (3-13); SEGMENTED NEUTROPHILS % (MAN) 56 % (42-78); TOTAL CELLS COUNTED 100
[2019-12-25 05:09] LABS: ANISOCYTOSIS 1+; PLATELET COMMENT ADEQUATE; POIKILOCYTOSIS SLIGHT; TARGET CELLS SLIGHT
--- NOTE | 2019-12-25 05:59 | Progress Note ---
Provider Note Provider Note: This is a 59-year-old female with a necrotizing soft tissue infection of the left thigh. The wound continues to appear clean. There is no need for further debridement. Continue with twice daily dressing changes. Surgery will sign off at this time. We are available for questions or concerns. Please renotify us with any issues.
[2019-12-25] MEDS: HEPARIN SOD (PORCINE) 5,000 UNIT/ML 1 ML VIAL SUBCUT SCH ×3 (06:23→21:07)
[2019-12-25] MEDS: FUROSEMIDE INJ/PF 20 MG/2 ML SDV IV SCH ×3 (06:24→21:07)
[2019-12-25] MEDS: DEXMEDETOMIDINE IN 0.9 % NACL 400 MCG/100 ML RTUPB IV PRN (06:58)
[2019-12-25] MEDS ORDERED: POTASSIUM CHLORIDE 20 MEQ PACKET NG ONE ×2 (08:30→11:30)
[2019-12-25] MEDS: PANTOPRAZOLE SODIUM 40 MG VIAL IV SCH (11:07)
[2019-12-25] MEDS ORDERED: HYDROMORPHONE HCL INJ/PF 2 MG/ML AMPULE IV PRN (12:22)
--- NOTE | 2019-12-25 12:35 | PDOC CRITICAL CARE PROG REPORT ---
General Date:: 12/25/19 ICU Day:: 4 Hospital Day:: 4 Resuscitation Status: Full Code Medical Power of Plaque Maker: DaughterShira Events in the past 12 to 24 Hours:: Doing better from a respiratory and surgical standpoint. Review of systems relevant to events:: Respiratory Reason for ICU Addmission:: Profound metabolic acidosis, Respiratory Failure, DKA. Intubated - Medications: Medications reviewed and adjusted accordingly: Yes Vasopressors:: None Sedation:: Precedex, dilaudid. Physical Exam Vital Signs: Temp Pulse Resp BP Pulse Ox 99.3 F 59 L 16 95/61 L 95 12/25/19 08:00 12/25/19 07:30 12/25/19 10:00 12/23/19 14:50 12/25/19 11:49 Intake & Output 12/24/19 12/25/19 12/26/19 06:59 06:59 06:59 Intake Total 1914 2500 350 Output Total 2545 4020 Balance -631 -1520 350 Weight 70.4 kg 70.5 kg Weight/Height Weight 70.5 kg Height 5 ft 3 in General appearance: PRESENT: no acute distress Head exam: PRESENT: atraumatic, normocephalic Eye exam: PRESENT: conjunctiva pink, EOMI, PERRLA. ABSENT: scleral icterus Ear exam: PRESENT: normal external ear exam Respiratory exam: PRESENT: symmetrical, unlabored Cardiovascular exam: PRESENT: bradycardia, RRR. ABSENT: diastolic murmur, rubs, systolic murmur Pulses: PRESENT: normal dorsalis pedis pul GI/Abdominal exam: PRESENT: normal bowel sounds, soft. ABSENT: distended, guarding, mass, organolmegaly, rebound, tenderness Rectal exam: PRESENT: deferred Gentrourinary exam: PRESENT: indwelling catheter Extremities exam: PRESENT: full ROM, other - L perineal and buttock abcess drainage site.. ABSENT: calf tenderness, clubbing, pedal edema Neurological exam: PRESENT: other - Sedated. Psychiatric exam: ABSENT: homicidal ideation, suicidal ideation Skin exam: PRESENT: dry, intact, warm. ABSENT: cyanosis, rash Tubes/Lines: PRESENT: Endotracheal Tube, Central Line, Arterial Catheter, Nasogastic Tube Laboratory/Radiographs Laboratory Results: 12/25/19 04:20 12/25/19 04:20 12/24/19 12/24/19 12/24/19 12:05 15:45 15:55 WBC RBC Hgb Hct MCV MCH MCHC RDW Plt Count Seg Neutrophils % Carbonic Acid HCO3/H2CO3 Ratio ABG pH ABG pCO2 ABG pO2 ABG HCO3 ABG O2 Saturation ABG Base Excess FiO2 Sodium 142.0 Potassium 3.7 Chloride 120 H Carbon Dioxide 16 L Anion Gap 6 BUN 26 H Creatinine 0.65 Est GFR ( Amer) > 60 Glucose 435 H* 462 H* Calcium 7.1 L Phosphorus 3.7 Magnesium 2.3 12/25/19 12/25/19 12/25/19 04:20 04:20 04:20 WBC 16.0 H RBC 3.90 Hgb 10.3 L Hct 30.1 L MCV 77 L MCH 26.4 L MCHC 34.2 RDW 15.7 H Plt Count 246 Seg Neutrophils % Not Reportable Carbonic Acid 0.87 L HCO3/H2CO3 Ratio 24:1 ABG pH 7.48 H ABG pCO2 28.8 L ABG pO2 74.0 L ABG HCO3 21.0 ABG O2 Saturation 96.0 ABG Base Excess -1.6 FiO2 21% Sodium 146.6 H Potassium 3.3 L Chloride 120 H Carbon Dioxide 22 Anion Gap 5 BUN 26 H Creatinine 0.67 Est GFR ( Amer) > 60 Glucose 248 H Calcium 7.7 L Phosphorus 2.9 Magnesium 2.4 H 12/21/19 18:00 Leg - Thigh Gram Stain - Final 12/21/19 18:00 Leg - Thigh Wound Culture - Final Enterococcus Faecalis(Group D) Peptostreptococcus Species 12/20/19 22:35 Blood Blood Culture (PCR) - Final 12/20/19 22:35 Blood Blood Culture - Final Staphylococcus Epidermidis Corynebacterium Species 12/21/19 04:21 Leg - Thigh Gram Stain - Final 12/21/19 04:21 Leg - Thigh Wound Culture - Final Enterococcus Faecalis(Group D) Skin Sommer 12/22/19 05:20 Creatine Kinase 55 Impressions: Abdomen/Pelvis CT 12/20/19 23:13 IMPRESSION: 1. 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 Arterial flow reconstitutes at the level of the left external iliac artery. Immediate Surgical referral advised. 2. Moderate patchy airspace opacities of the partially imaged lower lung. Differential etiologies include infectious, inflammatory, and neoplastic processes. Recommend CR/CT surveillance including at 7-12 weeks following initiation of any clinically warranted therapy. 3. 10 x 8 x 5 cm subcutaneous emphysema and edema of the posterior medial left upper leg. Advanced infectious etiology suspected. Gas bubbles could be due to advanced necrotizing component or iatrogenic. NOTE: Side is discordant from given clinical history. Please correlate. 4. Moderate lipomatous collection probably due to a benign soft tissue lipoma at the anterior aspect of the left femoral shaft , deep left gluteal, and of the medial left intermuscular upper leg, partially imaged. KUB X-Ray 12/21/19 00:00 IMPRESSION: Tip of an enteric tube is at the distal esophagus. Consider 16 cm advancement or replacement. Chest X-Ray 12/21/19 02:20 IMPRESSION: Endotracheal tube tip lower limits of acceptable, 1.8 cm above the sara. New/progressive areas of airspace consolidative changes with associated interstitial prominence bilaterally. All labs, radiographs, diagnostic studies and EKGs were personally reviewed: Yes In addition, reports of radiographic and diagnostic studies were read: Yes Assessment and Plan - Diagnosis (1) Abscess of left thigh Is this a current diagnosis for this admission?: Yes Plan: Clean with no further debridement planned. (2) Acute respiratory failure with hypoxia Is this a current diagnosis for this admission?: Yes Plan: On ventilator but likely can wean. (3) DKA (diabetic ketoacidoses) Qualifiers: Diabetes mellitus type: due to underlying condition Diabetes mellitus complication detail: without coma Qualified Code(s): E08.10 - Diabetes mellitus due to underlying condition with ketoacidosis without coma Is this a current diagnosis for this admission?: Yes Plan: Resolved (4) Leukocytosis Qualifiers: Leukocytosis type: bandemia Qualified Code(s): D72.825 - Bandemia Is this a current diagnosis for this admission?: Yes Plan: WBC down to 16k. Improving nearly resolved. (5) Suspected COVID-19 virus infection Is this a current diagnosis for this admission?: Yes Plan: Still awaiting testing results. Plan Summary: Plan to wean vent as tolerated. Critical Time Critical Time (minutes): 35 Level of Care: ICU Anticipated discharge: Home Within: Other -: 1. The care of a critical patient is a dynamic process. This note is a community representative synopsis but static in nature. The timeframe for treatments given in order is not necessarily the actual time these treatments may have been done. 2. This patient requires critical care secondary to ongoing requirements for therapy not offered or safe outside the critical care environment. Transfer to a lower level of care will result in altered life or limb morbidity and mortality. 3. Multidisciplinary rounds completed. 4. ABCDE bundle addressed.
[2019-12-25] MEDS: HYDROMORPHONE HCL INJ/PF 2 MG/ML AMPULE IV PRN ×2 (20:38→23:46)
[2019-12-25] MEDS: AZITHROMYCIN 500 MG in NORMAL SALINE 250 ML IV SCH (21:47)
[2019-12-25] MEDS: INSULIN GLARGINE,HUM.REC.ANLOG 1,000 UNIT/10 ML VIAL SUBCUT SCH (21:54)
[2019-12-25] MEDS ORDERED: INSULIN GLARGINE,HUM.REC.ANLOG 1,000 UNIT/10 ML VIAL (PYX) SUBCUT ONE (21:54)
[2019-12-26] MEDS: AMPICILLIN SODIUM 2 GM in NORMAL SALINE 100 ML IV SCH ×6 (01:34→21:43)
[2019-12-26] MEDS: HYDROMORPHONE HCL INJ/PF 2 MG/ML AMPULE IV PRN ×4 (04:03→23:51)
[2019-12-26 04:18] LABS: HEMATOCRIT 35.1 % (36.0-47.0); HEMOGLOBIN 11.8 g/dL (12.0-15.5); MEAN CORPUSCULAR HEMOGLOBIN 26.5 pg (27.0-33.4); MEAN CORPUSCULAR HGB CONC 33.7 g/dL (32.0-36.0); MEAN CORPUSCULAR VOLUME 79 fl (80-97); RED BLOOD COUNT 4.46 10^6/uL (3.72-5.28); RED CELL DISTRIBUTION WIDTH 15.6 % (11.5-14.0); WHITE BLOOD COUNT 21.4 10^3/uL (4.0-10.5)
[2019-12-26 04:22] LABS: BLOOD UREA NITROGEN 21 mg/dL (7-20); CALCIUM 7.9 mg/dL (8.4-10.2); CARBON DIOXIDE 31 mmol/L (22-30); CHLORIDE 115 mmol/L (98-107); GLUCOSE 100 mg/dL (75-110); PHOSPHORUS 3.1 mg/dL (2.5-4.5); POTASSIUM 3.4 mmol/L (3.6-5.0)
[2019-12-26 04:28] LABS: ANION GAP 2 (5-19)
[2019-12-26 04:48] LABS: ABSOLUTE LYMPHOCYTES# (MANUAL) 5.8 10^3/uL (0.5-4.7); ABSOLUTE MONOCYTES # (MANUAL) 2.1 10^3/uL (0.1-1.4); BAND NEUTROPHILS % (MANUAL) 2 % (3-5); BASOPHILS % (MANUAL) 0 % (0-2); EOSINOPHILS % (MANUAL) 0 % (0-6); LYMPHOCYTES % (MANUAL) 22 % (13-45); MONOCYTES % (MANUAL) 10 % (3-13); NUCLEATED RED BLOOD CELLS 1 /100 WBC (0); SEGMENTED NEUTROPHILS % (MAN) 61 % (42-78); TOTAL CELLS COUNTED 100
[2019-12-26 04:52] LABS: ANISOCYTOSIS SLIGHT; HYPOCHROMASIA SLIGHT
[2019-12-26 04:53] LABS: TARGET CELLS SLIGHT
[2019-12-26 04:54] LABS: PLATELET COUNT 297 10^3/uL (150-450)
[2019-12-26 04:55] LABS: PLATELET CLUMPS PRESENT; PLATELET COMMENT ADEQUATE
[2019-12-26] MEDS: INSULIN REG, HUMAN 100 UNIT/ML 3 ML VIAL (PYX) SUBCUT SCH ×3 (05:50→18:29)
[2019-12-26] MEDS: HEPARIN SOD (PORCINE) 5,000 UNIT/ML 1 ML VIAL SUBCUT SCH (05:56)
[2019-12-26] MEDS: FUROSEMIDE INJ/PF 20 MG/2 ML SDV IV SCH ×3 (05:56→21:43)
[2019-12-26] MEDS ORDERED: DEXTROSE 40% GEL 15 GM TUBE PO PRN ×2 (09:08)
[2019-12-26] MEDS ORDERED: DEXTROSE 50%-WATER 25 GM/50 ML DISP.SYRIN IV PRN ×2 (09:08)
[2019-12-26] MEDS ORDERED: GLUCAGON,HUMAN RECOMB 1 MG INJ SUBCUT PRN (09:08)
[2019-12-26] MEDS ORDERED: POTASSIUM CHLORIDE 10 MEQ TABLET.ER PO SCH (10:00)
--- NOTE | 2019-12-26 12:58 | PDOC CRITICAL CARE PROG REPORT ---
General Date:: 12/26/19 ICU Day:: 5 Hospital Day:: 5 Resuscitation Status: Full Code Medical Power of Thermal Cutting Machine Operator: DaughterShira Events in the past 12 to 24 Hours:: Better orientation. Extubated Review of systems relevant to events:: Respiratory, neurological. Reason for ICU Addmission:: Profound metabolic acidosis, Respiratory Failure, DKA. Now extubated. - Medications: Vasopressors:: None Sedation:: None Physical Exam Vital Signs: Temp Pulse Resp BP Pulse Ox 99.3 F 92 12 129/54 H 93 12/26/19 12:12 12/26/19 12:00 12/26/19 12:12 12/26/19 12:12 12/26/19 12:12 Intake & Output 12/25/19 12/26/19 12/27/19 06:59 06:59 06:59 Intake Total 2500 1200 Output Total 4020 3455 750 Balance -1520 -2255 -750 Weight 70.5 kg 67 kg Weight/Height Weight 67 kg Height 5 ft 3 in General appearance: PRESENT: no acute distress, cooperative Head exam: PRESENT: atraumatic, normocephalic Eye exam: PRESENT: conjunctiva pink, EOMI, PERRLA. ABSENT: scleral icterus Ear exam: PRESENT: normal external ear exam Mouth exam: PRESENT: moist, tongue midline Respiratory exam: PRESENT: clear to auscultation [place], decreased breath sounds. ABSENT: rales, rhonchi, wheezes Cardiovascular exam: PRESENT: RRR. ABSENT: diastolic murmur, rubs, systolic murmur GI/Abdominal exam: PRESENT: normal bowel sounds, soft. ABSENT: distended, guarding, mass, organolmegaly, rebound, tenderness Rectal exam: PRESENT: deferred Extremities exam: PRESENT: full ROM, other - Thigh wound clean. ABSENT: calf tenderness, clubbing, pedal edema Musculoskeletal exam: PRESENT: normal inspection Neurological exam: PRESENT: alert, altered, awake, oriented to person, oriented to place Skin exam: PRESENT: dry, intact, warm. ABSENT: cyanosis, rash Laboratory/Radiographs Laboratory Results: 12/26/19 04:00 12/26/19 04:00 12/26/19 12/26/19 04:00 04:00 WBC 21.4 H RBC 4.46 Hgb 11.8 L Hct 35.1 L MCV 79 L MCH 26.5 L MCHC 33.7 RDW 15.6 H Plt Count 297 Seg Neutrophils % Not Reportable Sodium 148.4 H Potassium 3.4 L Chloride 115 H Carbon Dioxide 31 H Anion Gap 2 L BUN 21 H Creatinine 0.59 Est GFR ( Amer) > 60 Glucose 100 Calcium 7.9 L Phosphorus 3.1 12/20/19 23:11 Blood Blood Culture - Final NO GROWTH IN 5 DAYS 12/22/19 05:20 Creatine Kinase 55 Impressions: Abdomen/Pelvis CT 12/20/19 23:13 IMPRESSION: 1. 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 Arterial flow reconstitutes at the level of the left external iliac artery. Immediate Surgical referral advised. 2. Moderate patchy airspace opacities of the partially imaged lower lung. Differential etiologies include infectious, inflammatory, and neoplastic processes. Recommend CR/CT surveillance including at 7-12 weeks following initiation of any clinically warranted therapy. 3. 10 x 8 x 5 cm subcutaneous emphysema and edema of the posterior medial left upper leg. Advanced infectious etiology suspected. Gas bubbles could be due to advanced necrotizing component or iatrogenic. NOTE: Side is discordant from given clinical history. Please correlate. 4. Moderate lipomatous collection probably due to a benign soft tissue lipoma at the anterior aspect of the left femoral shaft , deep left gluteal, and of the medial left intermuscular upper leg, partially imaged. KUB X-Ray 12/21/19 00:00 IMPRESSION: Tip of an enteric tube is at the distal esophagus. Consider 16 cm advancement or replacement. Chest X-Ray 12/21/19 02:20 IMPRESSION: Endotracheal tube tip lower limits of acceptable, 1.8 cm above the sara. New/progressive areas of airspace consolidative changes with associated interstitial prominence bilaterally. All labs, radiographs, diagnostic studies and EKGs were personally reviewed: Yes In addition, reports of radiographic and diagnostic studies were read: Yes Assessment and Plan - Diagnosis (1) Abscess of left thigh Is this a current diagnosis for this admission?: Yes Plan: So far clean and not needing further debridement. (2) Acute respiratory failure with hypoxia Is this a current diagnosis for this admission?: Yes Plan: Resolved (3) DKA (diabetic ketoacidoses) Qualifiers: Diabetes mellitus type: due to underlying condition Diabetes mellitus complication detail: without coma Qualified Code(s): E08.10 - Diabetes mellitus due to underlying condition with ketoacidosis without coma Is this a current diagnosis for this admission?: Yes Plan: Resolved (4) Leukocytosis Qualifiers: Leukocytosis type: bandemia Qualified Code(s): D72.825 - Bandemia Is this a current diagnosis for this admission?: Yes Plan: Improved but WBC still 21K. Keep on antibiotics. (5) Suspected COVID-19 virus infection Is this a current diagnosis for this admission?: Yes Plan: Covid not detected. (6) Diabetes Is this a current diagnosis for this admission?: Yes Plan: Under better control. (7) Sepsis Qualifiers: Sepsis type: sepsis due to unspecified organism Sepsis acute organ dysf unction status: unspecified Qualified Code(s): A41.9 - Sepsis, unspecified organism Is this a current diagnosis for this admission?: Yes Plan: Resolved. Plan Summary: OK to downgrade to medical floor. Critical Time Critical Time (minutes): 30 Level of Care: MEDICAL Anticipated discharge: Home with Homehealth Within: Other -: 1. The care of a critical patient is a dynamic process. This note is a data entry representative synopsis but static in nature. The timeframe for treatments given in order is not necessarily the actual time these treatments may have been done. 2. This patient requires critical care secondary to ongoing requirements for therapy not offered or safe outside the critical care environment. Transfer to a lower level of care will result in altered life or limb morbidity and mortality. 3. Multidisciplinary rounds completed. 4. ABCDE bundle addressed.
--- NOTE | 2019-12-26 19:13 | Progress Note ---
Provider Note Provider Note: Discussed the case with the public health internship today. Patient admitted with DKA and left thigh abscess status post I&D by general surgery. DKA resolved and infection resolved/resolving. Hemodynamically stable and ready for general medical floor. We will follow-up with patient in the morning and our service will assume care as of this afternoon. Call with questions or concerns.
[2019-12-26] MEDS: INSULIN GLARGINE,HUM.REC.ANLOG 1,000 UNIT/10 ML VIAL SUBCUT SCH (21:27)
[2019-12-26] MEDS: AZITHROMYCIN 500 MG in NORMAL SALINE 250 ML IV SCH (21:43)
[2019-12-27] MEDS: INSULIN REG, HUMAN 100 UNIT/ML 3 ML VIAL (PYX) SUBCUT SCH ×4 (01:35→18:31)
[2019-12-27] MEDS: AMPICILLIN SODIUM 2 GM in NORMAL SALINE 100 ML IV SCH ×6 (03:20→22:26)
[2019-12-27] MEDS: FUROSEMIDE INJ/PF 20 MG/2 ML SDV IV SCH ×3 (06:06→22:26)
[2019-12-27] MEDS: HYDROMORPHONE HCL INJ/PF 2 MG/ML AMPULE IV PRN ×3 (06:07→22:24)
--- NOTE | 2019-12-27 13:49 | PDOC PROGRESS REPORT ---
Subjective Progress Note for:: 12/27/19 Subjective:: Leg wound healing gradually, still quite painful per pt. added GPN for more control, low dose. WBC higher, reviewed BCx growing Cons and left leg wcx growing E Faecalis and peptostreptococcus. Reason For Visit: DKA,LEFT LEG ABSCESS,RESPIRATORY FAILURE Physical Exam Vital Signs: Temp Pulse Resp BP Pulse Ox 98.3 F 94 16 142/84 H 92 12/27/19 11:00 12/27/19 11:00 12/27/19 11:00 12/27/19 11:00 12/27/19 11:00 Intake & Output 12/26/19 12/27/19 12/28/19 06:59 06:59 06:59 Intake Total 1200 2850 Output Total 3455 1650 Balance -2255 1200 Weight 67 kg 74 kg General appearance: PRESENT: no acute distress, well-developed, well-nourished Head exam: PRESENT: atraumatic, normocephalic Eye exam: PRESENT: conjunctiva pink Mouth exam: PRESENT: moist Respiratory exam: PRESENT: clear to auscultation [place]. ABSENT: rales, rhonchi, wheezes Cardiovascular exam: PRESENT: RRR. ABSENT: diastolic murmur, rubs, systolic murmur GI/Abdominal exam: PRESENT: normal bowel sounds, soft. ABSENT: distended, guarding, mass, organolmegaly, rebound, tenderness Neurological exam: PRESENT: alert, awake Psychiatric exam: PRESENT: appropriate affect, normal mood Skin exam: PRESENT: dry, warm, other - left lower buttock/thigh wound, healing Results Laboratory Results: 12/26/19 04:00 12/26/19 04:00 12/22/19 05:20 Creatine Kinase 55 Impressions: Abdomen/Pelvis CT 12/20/19 23:13 IMPRESSION: 1. 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 Arterial flow reconstitutes at the level of the left external iliac artery. Immediate Surgical referral advised. 2. Moderate patchy airspace opacities of the partially imaged lower lung. Differential etiologies include infectious, inflammatory, and neoplastic processes. Recommend CR/CT surveillance including at 7-12 weeks following initiation of any clinically warranted therapy. 3. 10 x 8 x 5 cm subcutaneous emphysema and edema of the posterior medial left upper leg. Advanced infectious etiology suspected. Gas bubbles could be due to advanced necrotizing component or iatrogenic. NOTE: Side is discordant from given clinical history. Please correlate. 4. Moderate lipomatous collection probably due to a benign soft tissue lipoma at the anterior aspect of the left femoral shaft , deep left gluteal, and of the medial left intermuscular upper leg, partially imaged. KUB X-Ray 12/21/19 00:00 IMPRESSION: Tip of an enteric tube is at the distal esophagus. Consider 16 cm advancement or replacement. Chest X-Ray 12/21/19 02:20 IMPRESSION: Endotracheal tube tip lower limits of acceptable, 1.8 cm above the sara. New/progressive areas of airspace consolidative changes with associated interstitial prominence bilaterally. Assessment and Plan - Diagnosis (1) Abscess of left thigh Is this a current diagnosis for this admission?: Yes Plan: General surgery consulted by critical care, status post I/D and drainage with cultures growing E faecalis and Peptostreptococcus Antibiotics continued with ampicillin and azithromycin Pain management (2) Acute respiratory failure with hypoxia Is this a current diagnosis for this admission?: Yes Plan: Resulted in intubation and ICU, subsequently extubated Respiratory failure resolved, not needing any supplemental oxygen (3) DKA (diabetic ketoacidoses) Qualifiers: Diabetes mellitus type: due to underlying condition Diabetes mellitus complication detail: without coma Qualified Code(s): E08.10 - Diabetes mellitus due to underlying condition with ketoacidosis without coma Is this a current diagnosis for this admission?: Yes Plan: Initially placed on insulin drip in ICU, later switched over to glargine and sliding scale insulin Accu-Cheks (4) Diabetes Is this a current diagnosis for this admission?: Yes Plan: Would benefit from diabetic education outpatient (5) Necrotizing subcutaneous infection Is this a current diagnosis for this admission?: Yes (6) Respiratory failure requiring intubation Is this a current diagnosis for this admission?: Yes (7) Sepsis Qualifiers: Sepsis type: sepsis due to unspecified organism Sepsis acute organ dysfunction status: unspecified Qualified Code(s): A41.9 - Sepsis, unspecified organism Is this a current diagnosis for this admission?: Yes Plan: Due to left leg abscess as above Antibiotics as above Resolved (8) Soft tissue abscess Is this a current diagnosis for this admission?: Yes (9) Atherosclerosis of left iliac artery Is this a current diagnosis for this admission?: Yes - Time Time Spent with patient: 25-34 minutes Medications reviewed and adjusted accordingly: Yes Anticipated discharge: SNF Within: within 72 hours - Inpatient Certification Medical Necessity: Significant Comorbidiites Make Outpatient Treatment Too Risky, Need Close Monitoring Due to Risk of Patient Decompensation, Need for IV Antibiotics, Risk of Complication if Not Cared For in Hospital, Risk of Diagnosis Which Will Require Inpatient Eval/Care/Monitoring
[2019-12-27] MEDS: GABAPENTIN 100 MG CAPSULE PO SCH ×2 (14:55→22:26)
[2019-12-27] MEDS: INSULIN GLARGINE,HUM.REC.ANLOG 1,000 UNIT/10 ML VIAL SUBCUT SCH (22:25)
[2019-12-27] MEDS: AZITHROMYCIN 500 MG in NORMAL SALINE 250 ML IV SCH (22:26)
[2019-12-27] MEDS ORDERED: INSULIN REG, HUMAN 100 UNIT/ML 3 ML VIAL (PYX) SUBCUT ONE (22:45)
[2019-12-28] MEDS: AMPICILLIN SODIUM 2 GM in NORMAL SALINE 100 ML IV SCH ×6 (01:40→22:02)
[2019-12-28] MEDS: HYDROMORPHONE HCL INJ/PF 2 MG/ML AMPULE IV PRN ×6 (02:26→22:02)
[2019-12-28] MEDS: FUROSEMIDE INJ/PF 20 MG/2 ML SDV IV SCH ×3 (05:41→22:02)
[2019-12-28] MEDS: INSULIN REG, HUMAN 100 UNIT/ML 3 ML VIAL (PYX) SUBCUT SCH ×4 (09:45→22:03)
[2019-12-28] MEDS: GABAPENTIN 100 MG CAPSULE PO SCH ×2 (09:49→22:02)
[2019-12-28 11:16] LABS: HEMATOCRIT 31.8 % (36.0-47.0); HEMOGLOBIN 10.8 g/dL (12.0-15.5); MEAN CORPUSCULAR HEMOGLOBIN 26.3 pg (27.0-33.4); MEAN CORPUSCULAR VOLUME 78 fl (80-97); PLATELET COUNT 322 10^3/uL (150-450); RED CELL DISTRIBUTION WIDTH 15.5 % (11.5-14.0); WHITE BLOOD COUNT 13.6 10^3/uL (4.0-10.5)
[2019-12-28 13:22] LABS: BLOOD UREA NITROGEN 9 mg/dL (7-20); CALCIUM 7.5 mg/dL (8.4-10.2); CARBON DIOXIDE 36 mmol/L (22-30); CHLORIDE 96 mmol/L (98-107); GLUCOSE 95 mg/dL (75-110)
[2019-12-28 13:25] LABS: ANION GAP 4 (5-19)
[2019-12-28 13:26] LABS: POTASSIUM 2.9 mmol/L (3.6-5.0)
--- NOTE | 2019-12-28 13:51 | PDOC PROGRESS REPORT ---
Subjective Progress Note for:: 12/28/19 Subjective:: No adverse events overnight. No new complaints. Vital signs been stable. She is doing better overall but she still very fatigued. She came out to our service but she said that Dr. Chaudhari is her primary care provider. Notified Dr. Gonzalez that I have seen her today and he said he would get Dr. Chaudhari to see her tomorrow. Blood sugars have been reasonably well controlled. She has been afebrile. Reason For Visit: DKA,LEFT LEG ABSCESS,RESPIRATORY FAILURE Physical Exam Vital Signs: Temp Pulse Resp BP Pulse Ox 98.2 F 76 18 134/60 H 99 12/28/19 12:00 12/28/19 12:00 12/28/19 12:00 12/28/19 12:00 12/28/19 12:00 Intake & Output 12/27/19 12/28/19 12/29/19 06:59 06:59 06:59 Intake Total 2850 2110 360 Output Total 1650 4325 Balance 1200 -2215 360 Weight 74 kg 75.4 kg General appearance: PRESENT: no acute distress, cooperative, obese Respiratory exam: PRESENT: clear to auscultation [place], symmetrical, unlabored. ABSENT: accessory muscle use, chest wall tenderness, crackles, prolonged expiratory phas, retraction, rhonchi, tachypnea, wheezes Cardiovascular exam: PRESENT: RRR, +S1, +S2 Pulses: PRESENT: normal carotid pulses Vascular exam: PRESENT: normal capillary refill GI/Abdominal exam: PRESENT: normal bowel sounds, soft. ABSENT: distended, guarding, tenderness Extremities exam: ABSENT: clubbing, pedal edema Musculoskeletal exam: PRESENT: normal inspection. ABSENT: deformity Neurological exam: PRESENT: awake, oriented to person, oriented to place, oriented to situation Psychiatric exam: PRESENT: flat affect Skin exam: PRESENT: dry, warm, other - Wound on left posterior thigh covered with a sterile bandage Results Laboratory Results: 12/28/19 10:44 12/28/19 12:44 12/28/19 12/28/19 12/28/19 10:44 10:44 12:44 WBC 13.6 H RBC 4.10 Hgb 10.8 L Hct 31.8 L MCV 78 L MCH 26.3 L MCHC 34.0 RDW 15.5 H Plt Count 322 Sodium Cancelled 136.4 L Potassium Cancelled 2.9 L* Chloride Cancelled 96 L Carbon Dioxide Cancelled 36 H Anion Gap Cancelled 4 L BUN Cancelled 9 Creatinine Cancelled 0.54 Est GFR ( Amer) Cancelled > 60 Est GFR (Non-Af Amer) Cancelled Glucose Cancelled 95 Calcium Cancelled 7.5 L 12/22/19 05:20 Creatine Kinase 55 Impressions: Abdomen/Pelvis CT 12/20/19 23:13 IMPRESSION: 1. 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 Arterial flow reconstitutes at the level of the left external iliac artery. Immediate Surgical referral advised. 2. Moderate patchy airspace opacities of the partially imaged lower lung. Differential etiologies include infectious, inflammatory, and neoplastic processes. Recommend CR/CT surveillance including at 7-12 weeks following initiation of any clinically warranted therapy. 3. 10 x 8 x 5 cm subcutaneous emphysema and edema of the posterior medial left upper leg. Advanced infectious etiology suspected. Gas bubbles could be due to advanced necrotizing component or iatrogenic. NOTE: Side is discordant from given clinical history. Please correlate. 4. Moderate lipomatous collection probably due to a benign soft tissue lipoma at the anterior aspect of the left femoral shaft , deep left gluteal, and of the medial left intermuscular upper leg, partially imaged. KUB X-Ray 12/21/19 00:00 IMPRESSION: Tip of an enteric tube is at the distal esophagus. Consider 16 cm advancement or replacement. Chest X-Ray 12/21/19 02:20 IMPRESSION: Endotracheal tube tip lower limits of acceptable, 1.8 cm above the sara. New/progressive areas of airspace consolidative changes with associated interstitial prominence bilaterally. Assessment and Plan - Diagnosis (1) Hypokalemia Is this a current diagnosis for this admission?: Yes Plan: Her magnesium level was actually elevated 2 days ago at 4.2, so I do not think this is the cause. She is on Lasix twice a day and I think she is just getting depleted. She is getting some scheduled doses of oral potassium now. (2) Abscess of left thigh Is this a current diagnosis for this admission?: Yes Plan: She is on ampicillin for the pansensitive enterococcus that grew out of the wound culture. Surgery has signed off. Continue local wound care instructions. (3) Acute respiratory failure with hypoxia Is this a current diagnosis for this admission?: Yes Plan: Resolved (4) DKA (diabetic ketoacidoses) Qualifiers: Diabetes mellitus type: due to underlying condition Diabetes mellitus complication detail: without coma Qualified Code(s): E08.10 - Diabetes mellitus due to underlying condition with ketoacidosis without coma Is this a current diagnosis for this admission?: Yes Plan: Resolved (5) Community acquired pneumonia Qualifiers: Laterality: unspecified laterality Qualified Code(s): J18.9 - Pneumonia, unspecified organism Is this a current diagnosis for this admission?: Yes Plan: Continue azithromycin - Time Time Spent with patient: 15-24 minutes
[2019-12-28] MEDS: POTASSIUM CHLORIDE 10 MEQ TABLET.ER PO SCH ×2 (14:40→22:02)
[2019-12-28] MEDS: AZITHROMYCIN 500 MG in NORMAL SALINE 250 ML IV SCH (22:02)
[2019-12-28] MEDS: INSULIN GLARGINE,HUM.REC.ANLOG 1,000 UNIT/10 ML VIAL SUBCUT SCH (22:03)
[2019-12-29] MEDS: AMPICILLIN SODIUM 2 GM in NORMAL SALINE 100 ML IV SCH ×6 (02:57→22:54)
[2019-12-29] MEDS: HYDROMORPHONE HCL INJ/PF 2 MG/ML AMPULE IV PRN ×5 (04:08→22:53)
[2019-12-29] MEDS: FUROSEMIDE INJ/PF 20 MG/2 ML SDV IV SCH ×3 (05:53→22:50)
[2019-12-29] MEDS: INSULIN REG, HUMAN 100 UNIT/ML 3 ML VIAL (PYX) SUBCUT SCH ×4 (07:50→22:46)
[2019-12-29 08:26] LABS: HEMOGLOBIN 11.2 g/dL (12.0-15.5); MEAN CORPUSCULAR HEMOGLOBIN 26.3 pg (27.0-33.4); MEAN CORPUSCULAR HGB CONC 33.8 g/dL (32.0-36.0); MEAN CORPUSCULAR VOLUME 78 fl (80-97); PLATELET COUNT 346 10^3/uL (150-450); RED BLOOD COUNT 4.24 10^6/uL (3.72-5.28); RED CELL DISTRIBUTION WIDTH 15.5 % (11.5-14.0); WHITE BLOOD COUNT 14.8 10^3/uL (4.0-10.5)
[2019-12-29 08:55] LABS: ANION GAP 7 (5-19); BLOOD UREA NITROGEN 7 mg/dL (7-20); CARBON DIOXIDE 33 mmol/L (22-30); CHLORIDE 94 mmol/L (98-107); GLUCOSE 253 mg/dL (75-110); POTASSIUM 3.4 mmol/L (3.6-5.0)
[2019-12-29 09:15] LABS: CALCIUM 6.7 mg/dL (8.4-10.2)
[2019-12-29] MEDS: GABAPENTIN 100 MG CAPSULE PO SCH ×2 (09:32→22:45)
[2019-12-29] MEDS: POTASSIUM CHLORIDE 10 MEQ TABLET.ER PO SCH ×2 (09:33→22:45)
--- NOTE | 2019-12-29 20:29 | PDOC PROGRESS REPORT ---
Subjective Progress Note for:: 12/29/19 Subjective:: Patient reported back pain and requesting for pain medication. She has history of degenerative disc disease with chronic pain syndrome on chronic opioid therapy. She denied any chest pain or difficulty with breathing. No nausea or vomiting. No fever or chills. She remain on IV antibiotic coverage. Reason For Visit: DKA,LEFT LEG ABSCESS,RESPIRATORY FAILURE Physical Exam Vital Signs: Temp Pulse Resp BP Pulse Ox 98.3 F 89 16 130/53 H 94 12/29/19 11:38 12/29/19 11:38 12/29/19 11:38 12/29/19 11:38 12/29/19 11:38 Intake & Output 12/28/19 12/29/19 12/30/19 06:59 06:59 06:59 Intake Total 2110 2240 910 Output Total 4325 2200 1275 Balance -2215 40 -365 Weight 75.4 kg 76.1 kg General appearance: PRESENT: no acute distress Head exam: PRESENT: atraumatic, normocephalic Eye exam: PRESENT: conjunctiva pink, EOMI, PERRLA. ABSENT: scleral icterus Ear exam: PRESENT: normal external ear exam Mouth exam: PRESENT: moist Neck exam: PRESENT: full ROM. ABSENT: carotid bruit, JVD, lymphadenopathy, thyromegaly Respiratory exam: PRESENT: decreased breath sounds - at lung bases Cardiovascular exam: PRESENT: RRR. ABSENT: diastolic murmur, rubs, systolic murmur Vascular exam: ABSENT: pallor GI/Abdominal exam: PRESENT: normal bowel sounds, soft. ABSENT: distended, guarding, mass, organolmegaly, rebound, tenderness Extremities exam: ABSENT: pedal edema Neurological exam: PRESENT: alert, awake, oriented to person, oriented to place, oriented to time, oriented to situation, CN II-XII grossly intact. ABSENT: motor sensory deficit Psychiatric exam: PRESENT: appropriate affect, normal mood. ABSENT: homicidal ideation, suicidal ideation Skin exam: PRESENT: dry, warm, other - left thigh posterior aspect I&D drainage site dressing okay.. ABSENT: cyanosis, rash Results Laboratory Results: 12/29/19 07:48 12/29/19 07:48 12/29/19 12/29/19 07:48 07:48 WBC 14.8 H RBC 4.24 Hgb 11.2 L Hct 33.0 L MCV 78 L MCH 26.3 L MCHC 33.8 RDW 15.5 H Plt Count 346 Sodium 133.7 L Potassium 3.4 L Chloride 94 L Carbon Dioxide 33 H Anion Gap 7 BUN 7 Creatinine 0.49 L Est GFR ( Amer) > 60 Glucose 253 H Calcium 6.7 L* 12/22/19 05:20 Creatine Kinase 55 Impressions: Abdomen/Pelvis CT 12/20/19 23:13 IMPRESSION: 1. 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 Arterial flow reconstitutes at the level of the left external iliac artery. Immediate Surgical referral advised. 2. Moderate patchy airspace opacities of the partially imaged lower lung. Differential etiologies include infectious, inflammatory, and neoplastic processes. Recommend CR/CT surveillance including at 7-12 weeks following initiation of any clinically warranted therapy. 3. 10 x 8 x 5 cm subcutaneous emphysema and edema of the posterior medial left upper leg. Advanced infectious etiology suspected. Gas bubbles could be due to advanced necrotizing component or iatrogenic. NOTE: Side is discordant from given clinical history. Please correlate. 4. Moderate lipomatous collection probably due to a benign soft tissue lipoma at the anterior aspect of the left femoral shaft , deep left gluteal, and of the medial left intermuscular upper leg, partially imaged. KUB X-Ray 12/21/19 00:00 IMPRESSION: Tip of an enteric tube is at the distal esophagus. Consider 16 cm advancement or replacement. Chest X-Ray 12/21/19 02:20 IMPRESSION: Endotracheal tube tip lower limits of acceptable, 1.8 cm above the sara. New/progressive areas of airspace consolidative changes with associated interstitial prominence bilaterally. Assessment & Plan - Diagnosis (1) Acute respiratory failure with hypoxia Is this a current diagnosis for this admission?: Yes Plan: Improving post intubation and downgrade from ICU. (2) DKA (diabetic ketoacidoses) Qualifiers: Diabetes mellitus type: due to underlying condition Diabetes mellitus complication detail: without coma Qualified Code(s): E08.10 - Diabetes mellitus due to underlying condition with ketoacidosis without coma Is this a current diagnosis for this admission?: Yes Plan: Continue current medication management. (3) Community acquired pneumonia Qualifiers: Laterality: unspecified laterality Qualified Code(s): J18.9 - Pneumonia, unspecified organism Is this a current diagnosis for this admission?: Yes Plan: Maintain on Azithromycin and Ampicillin coverage. (4) Abscess of left thigh Is this a current diagnosis for this admission?: Yes Plan: Continue current medication management. Wound dressing daily with wet to dry approach. (5) Diabetes mellitus type II, uncontrolled Qualifiers: Glycemic state: with hyperglycemia Qualified Code(s): E11.65 - Type 2 diabetes mellitus with hyperglycemia Is this a current diagnosis for this admission?: Yes Plan: Improved glycemic management and response. (6) HTN (hypertension) Qualifiers: Hypertension type: essential hypertension Qualified Code(s): I10 - Essential (primary) hypertension Is this a current diagnosis for this admission?: Yes Plan: Continue current medication management. (7) HLD (hyperlipidemia) Qualifiers: Hyperlipidemia type: unspecified Qualified Code(s): E78.5 - Hyperlipidemia, unspecified Is this a current diagnosis for this admission?: Yes Plan: Continue current medication management. (8) Chronic pain syndrome Is this a current diagnosis for this admission?: Yes Plan: Continue current medication management. We will adjust medication management to transition to oral pain medication management. (9) Lumbar degenerative disc disease Is this a current diagnosis for this admission?: Yes Plan: Continue current medication management. (10) Chronic use of opiate for therapeutic purpose Is this a current diagnosis for this admission?: Yes Plan: Continue current medication management. (11) Atherosclerosis of left iliac artery Is this a current diagnosis for this admission?: Yes Plan: Patient will benefit from vascular surgeon referral upon discharge to follow up on her incidental CT scan abdomen and pelvic finding. - Time Time Spent with patient: 25-34 minutes Level of Care: MEDICAL Medications reviewed and adjusted accordingly: Yes Anticipated discharge: Home with Homehealth Within: Other - Inpatient Certification Based on my medical assessment, after consideration of the patient's comorbidities, presenting symptoms, or acuity I expect that the services needed warrant INPATIENT care.: Yes I certify that my determination is in accordance with my understanding of Medicare's requirements for reasonable and necessary INPATIENT services [42 CFR 412.3e].: Yes Medical Necessity: Significant Comorbidiites Make Outpatient Treatment Too Risky, Need Close Monitoring Due to Risk of Patient Decompensation, Need For IV Fluids, Need For Continuous Telemetry Monitoring, Need for IV Antibiotics, Risk of Complication if Not Cared For in Hospital, Risk of Diagnosis Which Will Require Inpatient Eval/Care/Monitoring Post Hospital Care: D/C Elementary Assistant Teacher Documentation - Plan Summary Plan Summary: Continue current medication management. Consider transition to oral antibiotic therapy. Obtain CBC with diff, SMA12, mag level in AM. She will need HOME TEACHING [employer] AND [employer] TEACHER with skill nursing upon discharge.
[2019-12-29] MEDS: AZITHROMYCIN 250 MG TABLET PO SCH (22:45)
[2019-12-29] MEDS: INSULIN GLARGINE,HUM.REC.ANLOG 1,000 UNIT/10 ML VIAL SUBCUT SCH (22:47)
[2019-12-30] MEDS: AMPICILLIN SODIUM 2 GM in NORMAL SALINE 100 ML IV SCH ×6 (02:01→22:06)
[2019-12-30 05:32] LABS: ABSOLUTE BASOPHILS # (AUTO) 0.1 10^3/uL (0.0-0.2); ABSOLUTE EOSINOPHILS # (AUTO) 0.1 10^3/uL (0.0-0.6); ABSOLUTE LYMPHOCYTES (AUTO) 1.6 10^3/uL (0.5-4.7); ABSOLUTE MONOCYTES (AUTO) 0.9 10^3/uL (0.1-1.4); ABSOLUTE NEUT (AUTO) 11.2 10^3/uL (1.7-8.2); BASOPHILS % (AUTO) 0.4 % (0-2); EOSINOPHILS % (AUTO) 0.5 % (0-6); HEMOGLOBIN 12.5 g/dL (12.0-15.5); LYMPHOCYTES % (AUTO) 11.4 % (13-45); MEAN CORPUSCULAR HEMOGLOBIN 25.9 pg (27.0-33.4); MEAN CORPUSCULAR HGB CONC 32.9 g/dL (32.0-36.0); MEAN CORPUSCULAR VOLUME 79 fl (80-97); MONOCYTES % (AUTO) 6.8 % (3-13); PLATELET COUNT 373 10^3/uL (150-450); RED BLOOD COUNT 4.82 10^6/uL (3.72-5.28); RED CELL DISTRIBUTION WIDTH 15.7 % (11.5-14.0); SEGMENTED NEUTROPHILS % (AUTO) 80.9 % (42-78); TOTAL CELLS COUNTED % (AUTO) 100 %; WHITE BLOOD COUNT 13.9 10^3/uL (4.0-10.5)
[2019-12-30] MEDS: FUROSEMIDE INJ/PF 20 MG/2 ML SDV IV SCH ×3 (05:39→22:00)
[2019-12-30 05:51] LABS: ALBUMIN 3.1 g/dL (3.5-5.0); ALKALINE PHOSPHATASE 144 U/L (38-126); ANION GAP 5 (5-19); ASPARTATE AMINO TRANSFERASE 37 U/L (14-36); BILIRUBIN,DIRECT 0.1 mg/dL (0.0-0.4); BILIRUBIN,TOTAL 0.6 mg/dL (0.2-1.3); BLOOD UREA NITROGEN 6 mg/dL (7-20); CALCIUM 7.6 mg/dL (8.4-10.2); CARBON DIOXIDE 37 mmol/L (22-30); CHLORIDE 96 mmol/L (98-107); GLUCOSE 77 mg/dL (75-110); POTASSIUM 3.7 mmol/L (3.6-5.0); TOTAL PROTEIN 6.7 g/dL (6.3-8.2)
[2019-12-30] MEDS: INSULIN REG, HUMAN 100 UNIT/ML 3 ML VIAL (PYX) SUBCUT SCH ×4 (07:18→22:03)
--- NOTE | 2019-12-30 09:11 | PDOC PROGRESS REPORT ---
Subjective Progress Note for:: 12/30/19 Subjective:: Patient denied any chest pain or difficulty with breathing. No nausea or vomiting. No fever or chills. She reported been on OXycodone/APAP 10/325 mg po 5x / day for chronic pain management prior to admission under supervision of [facility]. Reason For Visit: DKA,LEFT LEG ABSCESS,RESPIRATORY FAILURE Physical Exam Vital Signs: Temp Pulse Resp BP Pulse Ox 97.9 F 72 16 94/53 L 95 12/29/19 23:33 12/29/19 23:33 12/29/19 23:33 12/29/19 23:33 12/29/19 23:33 Intake & Output 12/29/19 12/30/19 12/31/19 06:59 06:59 06:59 Intake Total 2240 2550 Output Total 2200 5800 Balance 40 -3250 Weight 76.1 kg 78.2 kg Physical Exam: General appearance: PRESENT: no acute distress Head exam: PRESENT: atraumatic, normocephalic Eye exam: PRESENT: conjunctiva pink ABSENT: pallor, scleral icterus Ear exam: PRESENT: normal external ear exam Mouth exam: PRESENT: moist Respiratory exam: PRESENT: decreased breath sounds - at lung bases Cardiovascular exam: PRESENT: RRR. ABSENT: diastolic murmur, rubs, systolic murmur GI/Abdominal exam: PRESENT: normal bowel sounds, soft. ABSENT: distended, guarding, mass, organomegaly, rebound, tenderness Extremities exam: ABSENT: pedal edema Neurological exam: PRESENT: alert, awake, oriented to person, oriented to place, oriented to time, oriented to situation, CN II-XII grossly intact. ABSENT: motor sensory deficit Psychiatric exam: PRESENT: appropriate affect, normal mood. ABSENT: homicidal ideation, suicidal ideation Skin exam: PRESENT: dry, warm, other - left thigh posterior aspect I&D drainage site dressing okay.. ABSENT: cyanosis, rash Results Laboratory Results: 12/30/19 05:17 12/30/19 05:17 12/29/19 12/30/19 12/30/19 07:48 05:17 05:17 WBC 13.9 H RBC 4.82 Hgb 12.5 Hct 38.0 MCV 79 L MCH 25.9 L MCHC 32.9 RDW 15.7 H Plt Count 373 Seg Neutrophils % 80.9 H Sodium 133.7 L 138.3 Potassium 3.4 L 3.7 Chloride 94 L 96 L Carbon Dioxide 33 H 37 H Anion Gap 7 5 BUN 7 6 L Creatinine 0.49 L 0.57 Est GFR ( Amer) > 60 > 60 Glucose 253 H 77 Calcium 6.7 L* 7.6 L Magnesium 1.6 Total Bilirubin 0.6 AST 37 H Alkaline Phosphatase 144 H Total Protein 6.7 Albumin 3.1 L 12/22/19 05:20 Creatine Kinase 55 Impressions: Abdomen/Pelvis CT 12/20/19 23:13 IMPRESSION: 1. 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 Arterial flow reconstitutes at the level of the left external iliac artery. Immediate Surgical referral advised. 2. Moderate patchy airspace opacities of the partially imaged lower lung. Differential etiologies include infectious, inflammatory, and neoplastic processes. Recommend CR/CT surveillance including at 7-12 weeks following initiation of any clinically warranted therapy. 3. 10 x 8 x 5 cm subcutaneous emphysema and edema of the posterior medial left upper leg. Advanced infectious etiology suspected. Gas bubbles could be due to advanced necrotizing component or iatrogenic. NOTE: Side is discordant from given clinical history. Please correlate. 4. Moderate lipomatous collection probably due to a benign soft tissue lipoma at the anterior aspect of the left femoral shaft , deep left gluteal, and of the medial left intermuscular upper leg, partially imaged. KUB X-Ray 12/21/19 00:00 IMPRESSION: Tip of an enteric tube is at the distal esophagus. Consider 16 cm advancement or replacement. Chest X-Ray 12/21/19 02:20 IMPRESSION: Endotracheal tube tip lower limits of acceptable, 1.8 cm above the sara. New/progressive areas of airspace consolidative changes with associated interstitial prominence bilaterally. Assessment & Plan - Diagnosis (1) Acute respiratory failure with hypoxia Is this a current diagnosis for this admission?: Yes (2) DKA (diabetic ketoacidoses) Qualifiers: Diabetes mellitus type: due to underlying condition Diabetes mellitus complication detail: without coma Qualified Code(s): E08.10 - Diabetes mellitus due to underlying condition with ketoacidosis without coma Is this a current diagnosis for this admission?: Yes (3) Community acquired pneumonia Qualifiers: Laterality: unspecified laterality Qualified Code(s): J18.9 - Pneumonia, unspecified organism Is this a current diagnosis for this admission?: Yes (4) Abscess of left thigh Is this a current diagnosis for this admission?: Yes (5) Diabetes mellitus type II, uncontrolled Qualifiers: Glycemic state: with hyperglycemia Qualified Code(s): E11.65 - Type 2 diabetes mellitus with hyperglycemia Is this a current diagnosis for this admission?: Yes (6) HTN (hypertension) Qualifiers: Hypertension type: essential hypertension Qualified Code(s): I10 - Essential (primary) hypertension Is this a current diagnosis for this admission?: Yes (7) HLD (hyperlipidemia) Qualifiers: Hyperlipidemia type: unspecified Qualified Code(s): E78.5 - Hyperlipidemia, unspecified Is this a current diagnosis for this admission?: Yes (8) Chronic pain syndrome Is this a current diagnosis for this admission?: Yes (9) Lumbar degenerative disc disease Is this a current diagnosis for this admission?: Yes (10) Chronic use of opiate for therapeutic purpose Is this a current diagnosis for this admission?: Yes (11) Atherosclerosis of left iliac artery Is this a current diagnosis for this admission?: Yes - Time Time Spent with patient: 25-34 minutes Level of Care: MEDICAL Medications reviewed and adjusted accordingly: Yes Anticipated discharge: Home with Homehealth Within: Other - Inpatient Certification Based on my medical assessment, after consideration of the patient's comorbidities, presenting symptoms, or acuity I expect that the services needed warrant INPATIENT care.: Yes I certify that my determination is in accordance with my understanding of Medicare's requirements for reasonable and necessary INPATIENT services [42 CFR 412.3e].: Yes Medical Necessity: Significant Comorbidiites Make Outpatient Treatment Too Risky, Need Close Monitoring Due to Risk of Patient Decompensation, Need For IV Fluids, Need For Continuous Telemetry Monitoring, Need for Pain Control, Need for IV Antibiotics, Risk of Complication if Not Cared For in Hospital, Risk of Diagnosis Which Will Require Inpatient Eval/Care/Monitoring 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 Follow up with pain management to confirm her preadmission pain medication dose and regimen. Continue current wound dressing with wet to dry routine. I discussed possible discharge with [facility] services.
[2019-12-30] MEDS: POTASSIUM CHLORIDE 10 MEQ TABLET.ER PO SCH ×2 (11:00→22:03)
[2019-12-30] MEDS: HYDROMORPHONE HCL INJ/PF 2 MG/ML AMPULE IV PRN ×3 (11:00→18:27)
[2019-12-30] MEDS: GABAPENTIN 100 MG CAPSULE PO SCH ×2 (11:00→22:04)
[2019-12-30] MEDS: INSULIN GLARGINE,HUM.REC.ANLOG 1,000 UNIT/10 ML VIAL SUBCUT SCH (22:00)
[2019-12-30] MEDS: AZITHROMYCIN 250 MG TABLET PO SCH (22:04)
[2019-12-31] MEDS: AMPICILLIN SODIUM 2 GM in NORMAL SALINE 100 ML IV SCH ×2 (03:09→05:41)
[2019-12-31] MEDS: OXYCODONE-ACETAMINOPHEN 5-325 MG TABLET PO PRN ×5 (03:09→21:32)
[2019-12-31] MEDS: FUROSEMIDE INJ/PF 20 MG/2 ML SDV IV SCH ×3 (05:41→21:32)
[2019-12-31] MEDS: INSULIN REG, HUMAN 100 UNIT/ML 3 ML VIAL (PYX) SUBCUT SCH ×4 (07:32→21:39)
--- NOTE | 2019-12-31 09:21 | PDOC PROGRESS REPORT ---
Subjective Progress Note for:: 12/31/19 Subjective:: Patient still reported inadequate pain control but requested for oxycodone/APAP 5/325 mg only twice yesterday while on q4 hours prn dosing schedule. She denied any chest pain or difficulty with breathing. No nausea or vomiting. No fever or chills. Reason For Visit: DKA,LEFT LEG ABSCESS,RESPIRATORY FAILURE Physical Exam Vital Signs: Temp Pulse Resp BP Pulse Ox 97.9 F 77 16 112/57 L 94 12/31/19 08:00 12/31/19 08:00 12/31/19 08:00 12/31/19 08:00 12/31/19 08:00 Intake & Output 12/30/19 12/31/19 01/01/20 06:59 06:59 06:59 Intake Total 2550 2880 Output Total 5800 4870 Balance -3249 Weight 78.2 kg 78 kg Results Laboratory Results: 12/30/19 05:17 12/30/19 05:17 12/22/19 05:20 Creatine Kinase 55 Impressions: Abdomen/Pelvis CT 12/20/19 23:13 IMPRESSION: 1. 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 Arterial flow reconstitutes at the level of the left external iliac artery. Immediate Surgical referral advised. 2. Moderate patchy airspace opacities of the partially imaged lower lung. Differential etiologies include infectious, inflammatory, and neoplastic processes. Recommend CR/CT surveillance including at 7-12 weeks following initiation of any clinically warranted therapy. 3. 10 x 8 x 5 cm subcutaneous emphysema and edema of the posterior medial left upper leg. Advanced infectious etiology suspected. Gas bubbles could be due to advanced necrotizing component or iatrogenic. NOTE: Side is discordant from given clinical history. Please correlate. 4. Moderate lipomatous collection probably due to a benign soft tissue lipoma at the anterior aspect of the left femoral shaft , deep left gluteal, and of the medial left intermuscular upper leg, partially imaged. KUB X-Ray 12/21/19 00:00 IMPRESSION: Tip of an enteric tube is at the distal esophagus. Consider 16 cm advancement or replacement. Chest X-Ray 12/21/19 02:20 IMPRESSION: Endotracheal tube tip lower limits of acceptable, 1.8 cm above the sara. New/progressive areas of airspace consolidative changes with associated interstitial prominence bilaterally. Assessment & Plan - Diagnosis (1) Acute respiratory failure with hypoxia Is this a current diagnosis for this admission?: Yes (2) DKA (diabetic ketoacidoses) Qualifiers: Diabetes mellitus type: due to underlying condition Diabetes mellitus complication detail: without coma Qualified Code(s): E08.10 - Diabetes mellitus due to underlying condition with ketoacidosis without coma Is this a current diagnosis for this admission?: Yes (3) Community acquired pneumonia Qualifiers: Laterality: unspecified laterality Qualified Code(s): J18.9 - Pneumonia, unspecified organism Is this a current diagnosis for this admission?: Yes (4) Abscess of left thigh Is this a current diagnosis for this admission?: Yes (5) Diabetes mellitus type II, uncontrolled Qualifiers: Glycemic state: with hyperglycemia Qualified Code(s): E11.65 - Type 2 diabetes mellitus with hyperglycemia Is this a current diagnosis for this admission?: Yes (6) HTN (hypertension) Qualifiers: Hypertension type: essential hypertension Qualified Code(s): I10 - Essential (primary) hypertension Is this a current diagnosis for this admission?: Yes (7) HLD (hyperlipidemia) Qualifiers: Hyperlipidemia type: unspecified Qualified Code(s): E78.5 - Hyperlipidemia, unspecified Is this a current diagnosis for this admission?: Yes (8) Chronic pain syndrome Is this a current diagnosis for this admission?: Yes (9) Lumbar degenerative disc disease Is this a current diagnosis for this admission?: Yes (10) Chronic use of opiate for therapeutic purpose Is this a current diagnosis for this admission?: Yes (11) Atherosclerosis of left iliac artery Is this a current diagnosis for this admission?: Yes - Time Time Spent with patient: 25-34 minutes Level of Care: MEDICAL Medications reviewed and adjusted accordingly: Yes Anticipated discharge: Home with Homehealth Within: Other - Inpatient Certification Based on my medical assessment, after consideration of the patient's comorbidities, presenting symptoms, or acuity I expect that the services needed warrant INPATIENT care.: Yes I certify that my determination is in accordance with my understanding of Medicare's requirements for reasonable and necessary INPATIENT services [42 CFR 412.3e].: Yes Medical Necessity: Significant Comorbidiites Make Outpatient Treatment Too Risky, Need Close Monitoring Due to Risk of Patient Decompensation, Need For IV Fluids, Need for Pain Control, Need for IV Antibiotics, Risk of Complication if Not Cared For in Hospital, Risk of Diagnosis Which Will Require Inpatient Eval/Care/Monitoring 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 Start on Augmentin 875/125 mg po bid. D/C Bryan Catheter. Continue all other current medication management. emphasized compliance with q 4 hours prn dosing schedule for pain management. Possible d/c home tomorrow discussed with patient and she is in agreement.
[2019-12-31] MEDS: POTASSIUM CHLORIDE 10 MEQ TABLET.ER PO SCH ×2 (10:16→21:31)
[2019-12-31] MEDS: GABAPENTIN 100 MG CAPSULE PO SCH ×2 (10:16→21:32)
[2019-12-31] MEDS: AMOXICILLIN TR/POT CLAVULANATE 875-125 MG TAB PO SCH ×2 (12:34→21:32)
[2019-12-31] MEDS: INSULIN GLARGINE,HUM.REC.ANLOG 1,000 UNIT/10 ML VIAL SUBCUT SCH (21:33)
[2019-12-31] MEDS ORDERED: OXYCODONE-ACETAMINOPHEN 5-325 MG TABLET PO ONE (22:30)
[2020-01-01] MEDS: FUROSEMIDE INJ/PF 20 MG/2 ML SDV IV SCH ×2 (07:45→13:01)
[2020-01-01] MEDS: INSULIN REG, HUMAN 100 UNIT/ML 3 ML VIAL (PYX) SUBCUT SCH ×2 (07:45→12:12)
[2020-01-01 08:10] VITALS: BP 118/63
[2020-01-01] MEDS: OXYCODONE-ACETAMINOPHEN 5-325 MG TABLET PO PRN ×2 (08:10→12:11)
[2020-01-01] MEDS: AMOXICILLIN TR/POT CLAVULANATE 875-125 MG TAB PO SCH (09:47)
[2020-01-01] MEDS: GABAPENTIN 100 MG CAPSULE PO SCH (09:47)
[2020-01-01] MEDS: POTASSIUM CHLORIDE 10 MEQ TABLET.ER PO SCH (09:47)
--- NOTE | 2020-01-01 16:53 | PDOC DISCHARGE SUMMARY ---
Impression - Admit/DC Date/PCP Admission Date/Primary Care Provider: 12/21/19 02:27 Discharge Date: 01/01/20 - Discharge Diagnosis (1) Acute respiratory failure with hypoxia Is this a current diagnosis for this admission?: Yes (2) DKA (diabetic ketoacidoses) Is this a current diagnosis for this admission?: Yes (3) Community acquired pneumonia Is this a current diagnosis for this admission?: Yes (4) Abscess of left thigh Is this a current diagnosis for this admission?: Yes (5) Diabetes mellitus type II, uncontrolled Is this a current diagnosis for this admission?: Yes (6) HTN (hypertension) Is this a current diagnosis for this admission?: Yes (7) HLD (hyperlipidemia) Is this a current diagnosis for this admission?: Yes (8) Chronic pain syndrome Is this a current diagnosis for this admission?: Yes (9) Lumbar degenerative disc disease Is this a current diagnosis for this admission?: Yes (10) Chronic use of opiate for therapeutic purpose Is this a current diagnosis for this admission?: Yes (11) Atherosclerosis of left iliac artery Is this a current diagnosis for this admission?: Yes - Assessment Summary: She was admitted to ICU for acute respiratory failure, bilateral streptococcus pneumoniae pneumonia, left thigh abscess, and diabetic ketoacidosis. She was managed appropriately with invasive respiratory support, IV antibiotic, IV fluid and insulin therapy. She had incision and drainage of her left thigh abscess. She was eventually extubated and transfer to medical floor under my service. She ruled out for Erazo virus infection during this hospitalization. She was adequately treated with IV Ampicillin which was eventually transition type oral Augmentin therapy. She remain afebrile. Her hyperglycemia has been adequately tr eated with insulin therapy and her presentation maybe due to ongoing infection that is currently under control. She will be discharged home today on her preadmission diabetes mellitus medication. She will receive referral to [facility] for skill nursing for post acute care wound management. She will follow up in the office as instructed upon discharge. - Additional Information Resuscitation Status: Full Code Referrals: GONZALO BERNARD MD [ACTIVE STAFF] - 01/13/20 10:00 am Prescriptions: Ramipril [Altace 2.5 mg Capsule] 1 cap PO DAILY #30 capsule Amoxicillin/Potassium Clav [Augmentin 875-125 Tablet] 1 tab PO Q12 #14 tablet Aspirin [Ecotrin 81 mg EC Tablet] 81 mg PO DAILY #30 tabec Metformin HCl [Glucophage] 1,000 mg PO BID #60 tablet Gabapentin Enacarbil [Horizant] 600 mg PO BID #60 tab.er.24h Atorvastatin Calcium [Lipitor 40 mg Tablet] 40 mg PO QHS #30 tablet Amlodipine Besylate [Norvasc 10 mg Tablet] 10 mg PO DAILY #30 tablet Semaglutide [Ozempic] 0.5 mg SQ ASDIR PRN #3 pen.injctr PRN Reason: Oxycodone HCl/Acetaminophen [Percocet 5-325 mg Tablet] 1 tab PO Q4HP PRN #20 tablet PRN Reason: Trazodone HCl 50 mg PO QHS #30 tablet Home Medications: Oxycodone HCl/Acetaminophen [Oxycodone-Acetaminophen 10-325] 1 tab PO 5XD 12/21/19 Amlodipine Besylate [Norvasc 10 mg Tablet] 10 mg PO DAILY #30 tablet 01/01/20 Amoxicillin/Potassium Clav [Augmentin 875-125 Tablet] 1 tab PO Q12 #14 tablet 01/01/20 Aspirin [Ecotrin 81 mg EC Tablet] 81 mg PO DAILY #30 tabec 01/01/20 Atorvastatin Calcium [Lipitor 40 mg Tablet] 40 mg PO QHS #30 tablet 01/01/20 Gabapentin Enacarbil [Horizant] 600 mg PO BID #60 tab.er.24h 01/01/20 Metformin HCl [Glucophage] 1,000 mg PO BID #60 tablet 01/01/20 Oxycodone HCl/Acetaminophen [Percocet 5-325 mg Tablet] 1 tab PO Q4HP PRN #20 tablet 01/01/20 Ramipril [Altace 2.5 mg Capsule] 1 cap PO DAILY #30 capsule 01/01/20 Semaglutide [Ozempic] 0.5 mg SQ ASDIR PRN #3 pen.injctr 01/01/20 Trazodone HCl 50 mg PO QHS #30 tablet 01/01/20 History of Present Illiness History of Present Illness: CHANELL FOSS is a 59 year old female with history of HTN, hypercholesterolemia, DM 2. Patient has had foul-smelling drainage from an area of her left posterior thigh. It was reported that she was bedbound for the past 2 days and became poorly responsive. Upon arrival to the emergency department, her WBC was 37, her glucose was 659 with positive ketones in her urine. She also presented with a severe metabolic acidosis pH: 6.94 HCO3: 4.1. CT of abdomen/pelvis showed subcutaneous emphysema and edema of the posterior medial left upper leg. Possible advanced necrotizing disease. 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 General surgeon, Dr. Jackson was consulted by the emergency room doctor and is following. The ICU team was consulted to evaluate. Upon arrival to the emergency department, patient was obtunded with very shallow and ineffective breathing pattern. She was immediately intubated and placed on mechanical ventilation with prompt transfer to the intensive care unit. Post intubation CXR showed bilateral patchy airspace consolidation. Given these findings, we will valuate further for possible COVID infection. Hospital Course Hospital Course: She was admitted to ICU for acute respiratory failure, bilateral streptococcus pneumoniae pneumonia, left thigh abscess, and diabetic ketoacidosis. She was managed appropriately with invasive respiratory support, IV antibiotic, IV fluid and insulin therapy. She had incision and drainage of her left thigh abscess. She was eventually extubated and transfer to medical floor under my service. She ruled out for Erazo virus infection during this hospitalization. She was adequately treated with IV Ampicillin which was eventually transition type oral Augmentin therapy. She remain afebrile. Her hyperglycemia has been adequately treated with insulin therapy and her presentation maybe due to ongoing infection that is currently under control. She will be discharged home today on her preadmission diabetes mellitus medication. She will receive referral to [facility] for skill nursing for post acute care wound management. She will follow up in the office as instructed upon discharge. Physical Exam Vital Signs: Temp Pulse Resp BP Pulse Ox 98.1 F 86 18 118/63 96 01/01/20 08:00 01/01/20 08:00 01/01/20 08:00 01/01/20 08:00 01/01/20 08:00 Intake & Output 12/31/19 01/01/20 01/02/20 06:59 06:59 06:59 Intake Total 2880 1580 Output Total 4854 7120 -1989 Weight 78 kg 78 kg General appearance: PRESENT: no acute distress Head exam: PRESENT: atraumatic, normocephalic Eye exam: PRESENT: conjunctiva pink ABSENT: pallor, scleral icterus Ear exam: PRESENT: normal external ear exam Mouth exam: PRESENT: moist Respiratory exam: PRESENT: decreased breath sounds - at lung bases Cardiovascular exam: PRESENT: RRR. ABSENT: diastolic murmur, rubs, systolic murmur GI/Abdominal exam: PRESENT: normal bowel sounds, soft. ABSENT: distended, guarding, mass, organomegaly, rebound, tenderness Extremities exam: ABSENT: pedal edema Neurological exam: PRESENT: alert, awake, oriented to person, oriented to place, oriented to time, oriented to situation, CN II-XII grossly intact. ABSENT: motor sensory deficit Psychiatric exam: PRESENT: appropriate affect, normal mood. ABSENT: homicidal ideation, suicidal ideation Skin exam: PRESENT: dry, warm, other - left thigh posterior aspect I&D drainage site dressing okay. ABSENT: cyanosis, rash Results Laboratory Results: WBC 13.9 10^3/uL (4.0-10.5) H 12/30/19 05:17 RBC 4.82 10^6/uL (3.72-5.28) 12/30/19 05:17 Hgb 12.5 g/dL (12.0-15.5) 12/30/19 05:17 Hct 38.0 % (36.0-47.0) 12/30/19 05:17 MCV 79 fl (80-97) L 12/30/19 05:17 MCH 25.9 pg (27.0-33.4) L 12/30/19 05:17 MCHC 32.9 g/dL (32.0-36.0) 12/30/19 05:17 RDW 15.7 % (11.5-14.0) H 12/30/19 05:17 Plt Count 373 10^3/uL (150-450) 12/30/19 05:17 Lymph % (Auto) 11.4 % (13-45) L 12/30/19 05:17 [place] % (Auto) 6.8 % (3-13) 12/30/19 05:17 Eos % (Auto) 0.5 % (0-6) 12/30/19 05:17 Baso % (Auto) 0.4 % (0-2) 12/30/19 05:17 Absolute Neuts (auto) 11.2 10^3/uL (1.7-8.2) H 12/30/19 05:17 Absolute Lymphs (auto) 1.6 10^3/uL (0.5-4.7) 12/30/19 05:17 Absolute Monos (auto) 0.9 10^3/uL (0.1-1.4) 12/30/19 05:17 Absolute Eos (auto) 0.1 10^3/uL (0.0-0.6) 12/30/19 05:17 Absolute Basos (auto) 0.1 10^3/uL (0.0-0.2) 12/30/19 05:17 Total Counted 100 12/26/19 04:00 Seg Neutrophils % 80.9 % (42-78) H 12/30/19 05:17 Seg Neuts % (Manual) 61 % (42-78) 12/26/19 04:00 Band Neutrophils % 2 % (3-5) L 12/26/19 04:00 Lymphocytes % (Manual) 22 % (13-45) 12/26/19 04:00 Atypical Lymphs % 5 % (0) 12/26/19 04:00 Monocytes % (Manual) 10 % (3-13) 12/26/19 04:00 Eosinophils % (Manual) 0 % (0-6) 12/26/19 04:00 Basophils % (Manual) 0 % (0-2) 12/26/19 04:00 Myelocytes % 1 % (0) H 12/20/19 23:11 Promyelocytes % 1 % (0) H 12/20/19 23:11 Abs Neuts (Manual) 13.5 10^3/uL (1.7-8.2) H 12/26/19 04:00 Abs Lymphs (Manual) 5.8 10^3/uL (0.5-4.7) H 12/26/19 04:00 Abs Monocytes (Manual) 2.1 10^3/uL (0.1-1.4) H 12/26/19 04:00 Absolute Eos (Manual) 0.0 10^3/uL (0.0-0.6) 12/26/19 04:00 Abs Basophils (Manual) 0.0 10^3/uL (0.0-0.2) 12/26/19 04:00 Nucleated RBCs 1 /100 WBC (0) 12/26/19 04:00 Toxic Granulation SLIGHT 12/24/19 03:10 Toxic Vacuolation PRESENT 12/22/19 05:20 Dohle Bodies PRESENT 12/22/19 05:20 Platelet Estimate Cancelled 12/20/19 22:35 Clumped Platelets PRESENT 12/26/19 04:00 Large Platelets PRESENT 12/21/19 06:27 Platelet Comment ADEQUATE 12/26/19 04:00 Hypochromasia SLIGHT 12/26/19 04:00 Poikilocytosis SLIGHT 12/25/19 04:20 Anisocytosis SLIGHT 12/26/19 04:00 Microcytosis SLIGHT 12/26/19 04:00 Target Cells SLIGHT 12/26/19 04:00 Tear Drop Cells SLIGHT 12/20/19 23:11 Ovalocytes SLIGHT 12/20/19 23:11 Jacinto Cells SLIGHT 12/20/19 23:11 PT 14.6 SEC (11.4-15.4) 12/22/19 05:25 INR 1.13 12/22/19 05:25 APTT 29.9 SEC (23.5-35.8) 12/22/19 05:25 D-Dimer 2.78 ug/mL (0.00-0.50) H 12/23/19 03:26 Carbonic Acid 0.87 mmol/L (1.05-1.35) L 12/25/19 04:20 HCO3/H2CO3 Ratio 24:1 12/25/19 04:20 ABG pH 7.48 (7.35-7.45) H 12/25/19 04:20 ABG pCO2 28.8 mmHg (35-45) L 12/25/19 04:20 ABG pO2 74.0 mmHg (80-100) L 12/25/19 04:20 ABG HCO3 21.0 mmol/L (20-24) 12/25/19 04:20 ABG Total CO2 21.9 mmol/L (21-25) 12/25/19 04:20 ABG O2 Saturation 96.0 % (94-98) 12/25/19 04:20 ABG Base Excess -1.6 mmol/L 12/25/19 04:20 FiO2 21% 12/25/19 04:20 Sodium 138.3 mmol/L (137-145) 12/30/19 05:17 Potassium 3.7 mmol/L (3.6-5.0) 12/30/19 05:17 Chloride 96 mmol/L (98-107) L 12/30/19 05:17 Carbon Dioxide 37 mmol/L (22-30) H 12/30/19 05:17 Anion Gap 5 (5-19) 12/30/19 05:17 BUN 6 mg/dL (7-20) L 12/30/19 05:17 Creatinine 0.57 mg/dL (0.52-1.25) 12/30/19 05:17 Est GFR ( Amer) > 60 (>60) 12/30/19 05:17 Est GFR (Non-Af Amer) Cancelled 12/28/19 10:44 Est GFR (MDRD) Non-Af > 60 (>60) 12/30/19 05:17 Glucose 77 mg/dL (75-110) 12/30/19 05:17 POC Glucose 274 mg/dL (70-110) H 01/01/20 11:46 Hemoglobin A1c % 12.7 % (4.7-6.0) H 12/22/19 05:20 Lactic Acid 1.1 mmol/L (0.7-2.1) 12/23/19 03:26 Calcium 7.6 mg/dL (8.4-10.2) L 12/30/19 05:17 Phosphorus 3.1 mg/dL (2.5-4.5) 12/26/19 04:00 Magnesium 1.6 mg/dL (1.6-2.3) 12/30/19 05:17 Ferritin 688.00 ng/mL (11.1-264.0) H 12/23/19 03:26 Total Bilirubin 0.6 mg/dL (0.2-1.3) 12/30/19 05:17 Direct Bilirubin 0.1 mg/dL (0.0-0.4) 12/30/19 05:17 Neonat Total Bilirubin Not Reportable 12/30/19 05:17 Neonat Direct Bilirubin Not Reportable 12/30/19 05:17 Neonat Indirect Bili Not Reportable 12/30/19 05:17 AST 37 U/L (14-36) H 12/30/19 05:17 ALT 17 U/L (<35) 12/30/19 05:17 Alkaline Phosphatase 144 U/L (38-126) H 12/30/19 05:17 Ammonia 43.5 umol/L (9-33) H 12/22/19 05:20 Creatine Kinase 55 U/L (30-135) 12/22/19 05:20 C-Reactive Protein 153.6 mg/L (<10.0) H 12/23/19 03:26 Total Protein 6.7 g/dL (6.3-8.2) 12/30/19 05:17 Albumin 3.1 g/dL (3.5-5.0) L 12/30/19 05:17 EGFR Cancelled 12/28/19 10:44 Beta-Hydroxybutyrate 30 mg/dL (.) H 12/21/19 05:50 Procalcitonin 17.30 ng/mL (0.00-0.08) H 12/21/19 05:50 Urine Color YELLOW 12/20/19 22:50 Urine Appearance CLOUDY 12/20/19 22:50 Urine pH 5.0 (5.0-9.0) 12/20/19 22:50 Ur Specific [place] 1.021 12/20/19 22:50 Urine Protein 100 mg/dL (NEGATIVE) H 12/20/19 22:50 Urine Glucose (UA) >=500 mg/dL (NEGATIVE) H 12/20/19 22:50 Urine Ketones 80 mg/dL (NEGATIVE) H 12/20/19 22:50 Urine Blood MODERATE (NEGATIVE) H 12/20/19 22:50 Urine Nitrite (Reflex) NEGATIVE (NEGATIVE) 12/20/19 22:50 Urine Bilirubin NEGATIVE (NEGATIVE) 12/20/19 22:50 Urine Urobilinogen NEGATIVE mg/dL (<2.0) 12/20/19 22:50 Leukocyte Esterase Rfl NEGATIVE (NEGATIVE) 12/20/19 22:50 Urine RBC (Auto) 1 /HPF 12/20/19 22:50 U Hyaline Cast (Auto) 5 /LPF 12/20/19 22:50 Urine Bacteria (Auto) TRACE /HPF 12/20/19 22:50 Urine WBC (Reflex) 3 /HPF 12/20/19 22:50 Urine WBC Clumps FEW /HPF 12/20/19 22:50 Squamous Epi Cells Auto 3 /HPF 12/20/19 22:50 Urine Mucus (Auto) RARE /LPF 12/20/19 22:50 Urine Ascorbic Acid NEGATIVE (NEGATIVE) 12/20/19 22:50 Nasal Adenovirus (PCR) Cancelled 12/21/19 06:27 Nasal Coronavir 229E PCR Cancelled 12/21/19 06:27 Nasal Coronavir HKU1 PCR Cancelled 12/21/19 06:27 Nasal Coronavir NL63 PCR Cancelled 12/21/19 06:27 Nasal Coronavir OC43 PCR Cancelled 12/21/19 06:27 Nasal Enterovir/Rhinovir PCR Cancelled 12/21/19 06:27 Nasal Influenza A PCR Cancelled 12/21/19 06:27 Nasal Influenza A H1 PCR Cancelled 12/21/19 06:27 Nasal Influ A H1 2009 PCR Cancelled 12/21/19 06:27 Nasal Influenza A H3 PCR Cancelled 12/21/19 06:27 Nasal Influenza B PCR Cancelled 12/21/19 06:27 Nasal Parainfluen 1 PCR Cancelled 12/21/19 06:27 Nasal Parainfluen 2 PCR Cancelled 12/21/19 06:27 Nasal Parainfluen 3 PCR Cancelled 12/21/19 06:27 Nasal Parainfluen 4 PCR Cancelled 12/21/19 06:27 Nasal RSV (PCR) Cancelled 12/21/19 06:27 Nasal B.pertussis DNA PCR Cancelled 12/21/19 06:27 Nasal C.pneumoniae (PCR) Cancelled 12/21/19 06:27 Nasal M.pneumoniae (PCR) Cancelled 12/21/19 06:27 Time Trough Drawn 1030 12/24/19 10:30 Vancomycin Trough 13.8 ug/mL (5.0-20.0) 12/24/19 10:30 COVID-19 Source Cancelled 12/21/19 08:19 COVID-19 Source TRACHEAL ASPIRATE 12/21/19 08:19 COVID-19 (JOSE ANTONIO) Cancelled 12/21/19 08:19 COVID-19 (JOSE ANTONIO) NOT DETECTED 12/21/19 08:19 Human Metapneumovir PCR Cancelled 12/21/19 06:27 Slides for Path Review PATHOLOGIST REVIEWED 12/20/19 23:11 Blood Type O POSITIVE 12/21/19 10:12 Antibody Screen NEGATIVE 12/21/19 10:12 Impressions: Chest X-Ray 12/20/19 22:53 IMPRESSION: Fluffy alveolar space disease left lung base, likely infectious inflammatory. Abdomen/Pelvis CT 12/20/19 23:13 IMPRESSION: 1. 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 Arterial flow reconstitutes at the level of the left external iliac artery. Immediate Surgical referral advised. 2. Moderate patchy airspace opacities of the partially imaged lower lung. Differential etiologies include infectious, inflammatory, and neoplastic processes. Recommend CR/CT surveillance including at 7-12 weeks following initiation of any clinically warranted therapy. 3. 10 x 8 x 5 cm subcutaneous emphysema and edema of the posterior medial left upper leg. Advanced infectious etiology suspected. Gas bubbles could be due to advanced necrotizing component or iatrogenic. NOTE: Side is discordant from given clinical history. Please correlate. 4. Moderate lipomatous collection probably due to a benign soft tissue lipoma at the anterior aspect of the left femoral shaft , deep left gluteal, and of the medial left intermuscular upper leg, partially imaged. Chest X-Ray 12/21/19 00:00 IMPRESSION: Enteric tube tip is at the distal esophagus; recommend 15 cm advancement or replacement. KUB X-Ray 12/21/19 00:00 IMPRESSION: Tip of an enteric tube is at the distal esophagus. Consider 16 cm advancement or replacement. Chest X-Ray 12/21/19 02:20 IMPRESSION: Endotracheal tube tip lower limits of acceptable, 1.8 cm above the sara. New/progressive areas of airspace consolidative changes with associated interstitial prominence bilaterally. Plan Health Concerns: Medication and self care compliance. Plan of Treatment: [facility] for wound management. Goals: Reduce readmission risk and improve glycemic control Time Spent: Greater than 30 Minutes - in care management arrangement and discharge medication reconciliation. Stroke Is this a Stroke Patient?: No Acute Heart Failure - Is this a Heart Failure Patient?: No
== END 2020-01-01 13:56 | disposition home health service (06) | DRG 853 ==
LOC: ER 22:29 → EH 12-21 02:27 → ICU 12-21 02:28 → 4N 12-26 15:53
PROVIDERS: ADMIT Internal Medicine Critical Care Medicine; ATTEND Internal Medicine Geriatric Medicine
PROC: 0KBT0ZZ Excision of Left Lower Leg Muscle, Open Approach (ICD-10-PCS; principal; 2019-12-21)
PROC: 5A1955Z Respiratory Ventilation, Greater than 96 Consecutive Hours (ICD-10-PCS; 2019-12-21)
PROC: 0BH17EZ Insertion of Endotracheal Airway into Trachea, Via Natural or Artificial Opening (ICD-10-PCS; 2019-12-21)
PROC: 02HV33Z Insertion of Infusion Device into Superior Vena Cava, Percutaneous Approach (ICD-10-PCS; 2019-12-21)
PROC: B548ZZA Ultrasonography of Superior Vena Cava, Guidance (ICD-10-PCS; 2019-12-21)
PROC: 05H733Z Insertion of Infusion Device into Right Axillary Vein, Percutaneous Approach (ICD-10-PCS; 2019-12-21)
PROC: 03JY3ZZ Inspection of Upper Artery, Percutaneous Approach (ICD-10-PCS; 2019-12-21)
DX: A41.9 Sepsis, unspecified organism (principal); J96.01 Acute respiratory failure with hypoxia; E11.10 Type 2 diabetes mellitus with ketoacidosis without coma; J13 Pneumonia due to Streptococcus pneumoniae; L02.416 Cutaneous abscess of left lower limb; E78.5 Hyperlipidemia, unspecified; I10 Essential (primary) hypertension; E66.9 Obesity, unspecified; E11.51 Type 2 diabetes mellitus with diabetic peripheral angiopathy without gangrene; I70.202 Unspecified atherosclerosis of native arteries of extremities, left leg; B95.4 Other streptococcus as the cause of diseases classified elsewhere; B95.2 Enterococcus as the cause of diseases classified elsewhere; E87.6 Hypokalemia; G89.4 Chronic pain syndrome; M51.36 Other intervertebral disc degeneration, lumbar region; Z79.891 Long term (current) use of opiate analgesic; Z88.2 Allergy status to sulfonamides; Z03.818 Encounter for observation for suspected exposure to other biological agents ruled out; Z79.82 Long term (current) use of aspirin; Z79.899 Other long term (current) drug therapy; Z79.84 Long term (current) use of oral hypoglycemic drugs
CPT/HCPCS: 31500; 36415; 36556; 36620; 71045; 74018; 74177; 80048; 80053; 80076; 80202; 81001; 82010; 82140; 82550; 82728; 82803; 82947; 82962; 83036; 83605; 83735; 84100; 84145; 85025; 85027; 85379; 85610; 85730; 86140; 86850; 86900; 86901; 87040; 87070; 87075; 87077; 87150; 87186; 87205; 87635; 93005; 93010; 94002; 94003; 96361; 96365; 96367; 99231; 99291; 99292; C9113; J0290; J0360; J0456; J0692; J1170; J1644; J1815; J1940; J2250; J2543; J2704; J3370; J3475; J3480; J3490; J7030; J7042; J7050; J7060; J7120

== ENCOUNTER 2020-01-26 16:08 | Emergency (ER) | payer MEDICARE ==
[2020-01-26 16:45] VITALS: BP 111/79
[2020-01-26] MEDS ORDERED: MORPHINE SULFATE 10 MG/ML INJ IV ONE (16:46)
--- NOTE | 2020-01-26 16:48 | ER Document Report ---
HPI - HPI Patient complains to provider of: Generalized pain Time Seen by Provider: 01/26/20 16:19 Onset: This morning Onset/Duration: Persistent Quality of pain: Sharp Pain Level: 5 Context: Patient presents with generalized body aches. Patient reports chronic pain syndrome. Patient states that she was treated for an abscess 3 weeks ago. Patient states that she has been having daily wound care to the area. Patient denies any fever. Patient states that she had been on chronic opioids, oxycodone 10/325 and her dose had been decreased to 5 mg tablets. Patient states that she did call her pain management doctor and they advised her to come here for further management. Patient states her pain is typical of her chronic pain that she deals with. Associated Symptoms: Other - Generalized body pain. denies: Fever Exacerbated by: Denies Relieved by: Denies Similar symptoms previously: Yes Recently seen / treated by doctor: Yes - ROS ROS below otherwise negative: Yes Systems Reviewed and Negative: Yes All other systems reviewed and negative - CONSTITUTIONAL Constitutional: DENIES: Fever, Chills - NEURO Neurology: DENIES: Headache - CARDIOVASCULAR Cardiovascular: DENIES: Chest pain - RESPIRATORY Respiratory: DENIES: Trouble Breathing, Coughing - GASTROINTESTINAL Gastrointestinal: DENIES: Abdominal Pain, Nausea - MUSCULOSKELETAL Musculoskeletal: REPORTS: Extremity pain, Back Pain - DERM Skin Color: Normal Notes: Wound to the left thigh Past Medical History - General Information source: Patient - Social History Smoking Status: Current Every Day Smoker Frequency of alcohol use: None Drug Abuse: None Occupation: None Lives with: Family Family History: Reviewed & Not Pertinent Patient has homicidal ideation: No - Past Medical History Cardiac Medical History: Reports: Hx Hypercholesterolemia, Hx Hypertension Pulmonary Medical History: Reports: Hx Asthma Denies: Hx Tuberculosis Neurological Medical History: Denies: Hx Seizures Renal/ Medical History: Denies: Hx Peritoneal Dialysis Musculoskeletal Medical History: Reports Hx Arthritis, Reports Hx Musculoskele lauri Deformity, Reports Hx Musculoskeletal Trauma, Reports Other - Chronic pain syndrome Past Surgical History: Reports: Hx Breast Surgery, Hx Cholecystectomy, Hx Hysterectomy - Immunizations Hx Diphtheria, Pertussis, Tetanus Vaccination: Yes Hx Pneumococcal Vaccination: 07/17/13 Vertical Provider Document - CONSTITUTIONAL Agree With Documented VS: Yes Exam Limitations: No Limitations General Appearance: WD/WN, No Apparent Distress - INFECTION CONTROL TRAVEL OUTSIDE OF THE [place] IN LAST 30 DAYS: No - HEENT HEENT: Atraumatic, Normocephalic - NECK Neck: Normal Inspection, Supple. negative: Lymphadenopathy-Left, Lymphadenopathy-Right - RESPIRATORY Respiratory: Breath Sounds Normal, No Respiratory Distress - CARDIOVASCULAR Cardiovascular: Regular Rate, Regular Rhythm, No Murmur - GI/ABDOMEN Gastrointestinal: Abdomen Soft, Abdomen Non-Tender, No Organomegaly - BACK Notes: Generalized back pain throughout entire spine and paraspinal area - MUSCULOSKELETAL/EXTREMETIES Musculoskeletal/Extremeties: BILLIE ESCOBEDO - NEURO Level of Consciousness: Awake, Alert, Appropriate Motor/Sensory: No Motor Deficit - DERM Integumentary: Warm, Dry, Abscess - Patient with healing wound to left medial thigh area with packing in place, granulation tissue noted to bed of wound, no exudate, no purulent drainage, no surrounding erythema Course - Re-evaluation Re-evalutation: 01/26/20 17:30 Nurse states that patient received her pain medication and immediately stated that she wanted to be discharged. Patient no longer wants to have any lab work performed. Patient with chronic pain syndrome and pain typical of flareups that she has had in the past. Patient's wound appears to be healing well without any complication at this time. Patient educated on wound management to avoid excessive tape application to the dressing. Patient does have a family member who will be driving her home. Patient encouraged to follow-up with her primary doctor and pain management doctor on outpatient basis. - Vital Signs Vital signs: Temp Pulse Resp BP Pulse Ox 98 F 100 16 111/79 100 01/26/20 16:45 01/26/20 16:45 01/26/20 16:45 01/26/20 16:45 01/26/20 16:45 Discharge - Discharge Clinical Impression: Chronic pain Qualifiers: Chronic pain type: chronic pain syndrome Qualified Code(s): G89.4 - Chronic pain syndrome Condition: Stable Disposition: HOME, SELF-CARE Instructions: Chronic Pain Control ([facility]) Additional Instructions: Follow-up with your pain management provider for recheck Return immediately for any new or worsening symptoms Followup with your primary care provider, call tomorrow to make a followup appointment Referrals: GONZALO BERNARD MD [Primary Care Provider] - Follow up as needed
== END 2020-01-26 17:40 | disposition home or self-care (01) ==
LOC: ER 16:08
DX: G89.4 Chronic pain syndrome (principal); F17.200 Nicotine dependence, unspecified, uncomplicated; E78.00 Pure hypercholesterolemia, unspecified; I10 Essential (primary) hypertension; Z90.49 Acquired absence of other specified parts of digestive tract; Z90.710 Acquired absence of both cervix and uterus
CPT/HCPCS: 99283; 96374; J2270

== ENCOUNTER 2020-07-19 11:22 | Emergency (ER) | payer MEDICARE ==
[2020-07-19] MEDS ORDERED: MORPHINE SULFATE 10 MG/ML INJ IM ONE (12:40)
--- NOTE | 2020-07-19 12:58 | ER Document Report ---
HPI - HPI Time Seen by Provider: 07/19/20 12:24 Pain Level: 4 Notes: 60-year-old female patient presenting with chief complaint of low back pain. Patient does report history of chronic back pain, states this is an acute flareup. She denies any loss of control of bowel or bladder, denies any urinary retention or saddle anesthesia. Patient states the pain is severe. She states medications usually help with this. She has muscle relaxers at home. She has tried taking ibuprofen with minimal relief. - ROS Systems Reviewed and Negative: Yes All other systems reviewed and negative - CONSTITUTIONAL Constitutional: DENIES: Fever, Chills - REPRODUCTIVE Reproductive: DENIES: : - MUSCULOSKELETAL Musculoskeletal: REPORTS: Extremity pain, Back Pain Past Medical History - General Information source: Patient - Social History Smoking Status: Current Every Day Smoker Chew tobacco use (# tins/day): No Frequency of alcohol use: None Drug Abuse: None Family History: Reviewed & Not Pertinent - Past Medical History Cardiac Medical History: Reports: Hx Hypercholesterolemia, Hx Hypertension Pulmonary Medical History: Reports: Hx Asthma Denies: Hx Tuberculosis Neurological Medical History: Denies: Hx Seizures Endocrine Medical History: Reports: Hx Diabetes Mellitus Type 1, Hx Diabetes Mellitus Type 2 Renal/ Medical History: Denies: Hx Peritoneal Dialysis Musculoskeletal Medical History: Reports Hx Arthritis, Reports Hx Musculoskeletal Deformity, Reports Hx Musculoskeletal Trauma Past Surgical History: Reports: Hx Breast Surgery, Hx Cholecystectomy, Hx Hysterectomy - Immunizations Hx Diphtheria, Pertussis, Tetanus Vaccination: Yes Hx Pneumococcal Vaccination: 07/17/13 Vertical Provider Document - CONSTITUTIONAL Notes: PHYSICAL EXAMINATION: GENERAL: Well-appearing, well-nourished and in mild distress. HEAD: Atraumatic, normocephalic. EYES: Pupils equal round and reactive to light, extraocular movements intact, conjunctiva are normal. ENT: Nares patent, oropharynx clear without exudates. Moist mucous membranes. NECK: Normal range of motion, supple without lymphadenopathy LUNGS: Breath sounds clear to auscultation bilaterally and equal. No wheezes rales or rhonchi. HEART: Regular rate and rhythm without murmurs ABDOMEN: Soft, nontender, nondistended abdomen. No guarding, no rebound. No masses appreciated. Female : deferred Musculoskeletal: Normal range of motion, no pitting or edema. No cyanosis. Tenderness in the bilateral lumbar paraspinous region, no vertebral tenderness, step-off or deformity. NEUROLOGICAL: Cranial nerves grossly intact. Normal speech, normal gait. Normal sensory, motor exams PSYCH: Normal mood, normal affect. SKIN: Warm, Dry, normal turgor, no rashes or lesions noted. - INFECTION CONTROL TRAVEL OUTSIDE OF THE [place] IN LAST 30 DAYS: No Course - Re-evaluation Re-evalutation: Patient's exam consistent with acute acute on chronic low back pain. No red flag signs for cauda equina. Patient has otherwise been well, has not had fever. She will be medicated here in the emergency department. She was counseled to follow-up with primary care and establish care with a pain management and that we would not be able to fill any further narcotic prescriptions. Patient verbalized understanding and agreement with this plan. - Vital Signs Vital signs: Temp Pulse Resp BP Pulse Ox 98.1 F 115 H 20 138/85 H 100 07/19/20 11:27 07/19/20 11:27 07/19/20 11:27 07/19/20 11:27 07/19/20 11:27 Discharge - Discharge Clinical Impression: Left leg pain Back pain Qualifiers: Back pain location: low back pain Chronicity: chronic Back pain laterality: bilateral Sciatica presence: with sciatica Sciatica laterality: sciatica of left side Qualified Code(s): M54.42 - Lumbago with sciatica, left side Condition: Stable Disposition: HOME, SELF-CARE Additional Instructions: You have been seen in the Emergency Department (ED) today for back pain. Your workup and exam have not shown any acute abnormalities and you are likely suffering from muscle strain or possible problems with your discs, but there is no treatment that will fix your symptoms at this time. Please take the medication that has been prescribed as directed. You should also purchase a local lidocaine cream such as "aspercreme with lidocaine" and use per bottle instructions to the affected area. Apply heat to the area as often as you are able. Continue to keep active and avoid prolonged periods of bed rest. Please follow up with your doctor as soon as possible regarding today's ED visit and your back pain. Return to the ED for worsening back pain, fever, weakness or numbness of either leg, or if you develop either (1) an inability to urinate or have bowel movements, or (2) loss of your ability to control your bathroom functions (if you start having "accidents"), or if you develop other new symptoms that concern you.concern you. We will not be able to fill any further prescriptions for controlled substances for the back pain considering it is chronic. Please speak with your primary care provider's office to get established with a pain management clinic. Prescriptions: Hydrocodone/Acetaminophen [Rosiclare 5-325 mg Tablet] 1 tab PO Q6HP PRN #12 tablet PRN Reason: Referrals: GONZALO BERNARD MD [Primary Care Provider] - Follow up as needed
[2020-07-19 13:12] VITALS: BP 146/79
== END 2020-07-19 13:11 | disposition home or self-care (01) ==
LOC: ER 11:22
DX: M54.42 Lumbago with sciatica, left side (principal); M79.605 Pain in left leg; G89.29 Other chronic pain; F17.200 Nicotine dependence, unspecified, uncomplicated; I10 Essential (primary) hypertension; E11.9 Type 2 diabetes mellitus without complications
CPT/HCPCS: 99284; 96372; J2270

== ENCOUNTER 2020-07-23 12:51 | Emergency (ER) | payer MEDICARE ==
[2020-07-23 13:23] VITALS: BP 151/71
[2020-07-23] MEDS ORDERED: MORPHINE SULFATE 10 MG/ML INJ IM ONE (13:43)
--- NOTE | 2020-07-23 13:50 | ER Document Report ---
HPI - HPI Time Seen by Provider: 07/23/20 13:29 Context: Patient is a 60-year-old female presents emergency department with a chief complaint of left-sided low back pain that radiates down her left leg. Patient states that her whole left side hurts. Patient does have chronic back pain. Denies any loss of bladder or bowel function that is new, patient is able to walk. Patient was recently discharged from pain management. She was also seen here in the emergency department a few days ago for the same thing, but has not followed up with her primary care provider. - ROS Systems Reviewed and Negative: Yes All other systems reviewed and negative - CONSTITUTIONAL Constitutional: DENIES: Fever, Chills - NEURO Neurology: DENIES: Headache, Weakness, Vision blurred, Dizzinesss / Vertigo - REPRODUCTIVE Reproductive: DENIES: : - MUSCULOSKELETAL Musculoskeletal: REPORTS: Extremity pain - Left arm and left leg, Back Pain - Left low back. DENIES: Swelling - Bilateral lower extremity - DERM Skin Color: Normal Skin Problems: None Past Medical History - General Information source: Patient - Social History Smoking Status: Unknown if Ever Smoked Family History: Reviewed & Not Pertinent - Past Medical History Cardiac Medical History: Reports: Hx Hypercholesterolemia, Hx Hypertension Pulmonary Medical History: Reports: Hx Asthma Denies: Hx Tuberculosis Neurological Medical History: Denies: Hx Seizures Endocrine Medical History: Reports: Hx Diabetes Mellitus Type 1, Hx Diabetes Mellitus Type 2 Renal/ Medical History: Denies: Hx Peritoneal Dialysis Musculoskeletal Medical History: Reports Hx Arthritis, Reports Hx Musculoskeletal Deformity, Reports Hx Musculoskeletal Trauma Past Surgical History: Reports: Hx Breast Surgery, Hx Cholecystectomy, Hx Hysterectomy - Immunizations Hx Diphtheria, Pertussis, Tetanus Vaccination: Yes Hx Pneumococcal Vaccination: 07/17/13 Vertical Provider Document - CONSTITUTIONAL Agree With Documented VS: Yes Exam Limitations: No Limitations General Appearance: No Apparent Distress - INFECTION CONTROL TRAVEL OUTSIDE OF THE [place] IN LAST 30 DAYS: No - HEENT HEENT: Atraumatic, Normocephalic, PERRLA - NECK Neck: Normal Inspection - RESPIRATORY Respiratory: No Respiratory Distress - CARDIOVASCULAR Cardiovascular: Regular Rhythm, Tachycardia Pulses: Normal: Radial - MUSCULOSKELETAL/EXTREMETIES Musculoskeletal/Extremeties: FROM, Tender - Left low back, No Edema - NEURO Level of Consciousness: Awake, Alert, Appropriate Motor/Sensory: No Motor Deficit, No Sensory Deficit - DERM Integumentary: Warm, Dry, No Rash Course - Re-evaluation Re-evalutation: 07/23/20 13:[address] Bernard, the patient's primary care provider. He said that the patient needs to follow-up with pain management. He states that the clinics are walk-in clinics. Refer the patient to pain management. I have a low suspicion for any life-threatening etiology at this time. Patient is slightly tachycardic, most likely due to the pain. We will give her a dose of morphine and she will be discharged home. I have a low suspicion for cauda equina syndrome, or any life-threatening etiology at this time. Follow-up precautions were given. Verbal discharge instructions were given to the patient. They verbalized understanding. They are stable for discharge. - Vital Signs Vital signs: Temp Pulse Resp BP Pulse Ox 98.8 F 110 H 18 151/71 H 100 07/23/20 13:18 07/23/20 13:18 07/23/20 13:18 07/23/20 13:18 07/23/20 13:18 Discharge - Discharge Clinical Impression: Back pain Qualifiers: Back pain location: low back pain Chronicity: chronic Back pain laterality: left Sciatica presence: unspecified whether sciatica present Qualified Code(s): M54.5 - Low back pain Condition: Stable Disposition: HOME, SELF-CARE Additional Instructions: You have been seen in the Emergency Department (ED) today for back pain. Your workup and exam have not shown any acute abnormalities and you are likely suffering from muscle strain or possible problems with your discs, but there is no treatment that will fix your symptoms at this time. Please take the medication that has been prescribed as directed. You should also purchase a local lidocaine cream such as "aspercreme with lidocaine" and use per bottle instructions to the affected area. Apply heat to the area as often as you are able. Continue to keep active and avoid prolonged periods of bed rest. Please follow up with your doctor as soon as possible regarding today's ED visit and your back pain. Return to the ED for worsening back pain, fever, weakness or numbness of either leg, or if you develop either (1) an inability to urinate or have bowel movements, or (2) loss of your ability to control your bathroom functions (if you start having "accidents"), or if you develop other new symptoms that concern you.concern you. We will not be able to fill any further prescriptions for controlled substances for the back pain considering it is chronic. Please follow-up with the one of the clinics below for chronic pain. [facility] [address], [place] [address] Referrals: GONZALO BERNARD MD [Primary Care Provider] - Follow up in 3-5 days
== END 2020-07-23 14:16 | disposition home or self-care (01) ==
LOC: ER 12:51
DX: M54.5 Low back pain (principal); E78.00 Pure hypercholesterolemia, unspecified; I10 Essential (primary) hypertension; E11.9 Type 2 diabetes mellitus without complications
CPT/HCPCS: 99284; 96372; J2270

== ENCOUNTER 2020-07-27 13:08 | Emergency (ER) | payer MEDICARE ==
[2020-07-27 13:14] VITALS: BP 149/56
[2020-07-27] MEDS ORDERED: KETOROLAC TROMETHAMINE 60 MG/2 ML SDV IM ONE (13:54)
[2020-07-27] MEDS ORDERED: DEXAMETHASONE SOD PHOS INJ 10 MG/1 ML VIAL IM ONE (13:54)
--- NOTE | 2020-07-27 13:58 | ER Document Report ---
HPI - HPI Time Seen by Provider: 07/27/20 13:44 Notes: 60-year-old female with a history of chronic back pain presents to the emergency room today for complaints of left sided lower back pain that has become progressively worse over the last 2 days. Denies any recent traumas or falls. Patient states he does have multiple spinal back surgeries since 1999. Reports her last bowel movement was this morning, no melena. Reports pain is 4 out of 5, throbbing and sharp. Reports she has a longstanding history of left-sided sciatica. Denies fevers, chills, chest pain,palpitations, shortness of breath, dyspnea, nausea, vomiting, diarrhea, abdominal pain, hematuria,blurred vision, double vision, loss of vision, speech changes, LH, dizziness, syncope, headaches, wheezing, ST, URI, neck pain, weakness, bowel or bladder dysfunction, saddle anesthesia, numbness or tingling in bilateral upper or lower extremities equally, muscle paralysis, weakness in bilateral upper or lower extremities equally or rash. Denies IV drug use. - REPRODUCTIVE Reproductive: DENIES: : Past Medical History - General Information source: Patient - Social History Smoking Status: Unknown if Ever Smoked Family History: Reviewed & Not Pertinent - Past Medical History Cardiac Medical History: Reports: Hx Hypercholesterolemia, Hx Hypertension Pulmonary Medical History: Reports: Hx Asthma Denies: Hx Tuberculosis Neurological Medical History: Denies: Hx Seizures Endocrine Medical History: Reports: Hx Diabetes Mellitus Type 1, Hx Diabetes Mellitus Type 2 Renal/ Medical History: Denies: Hx Peritoneal Dialysis Musculoskeletal Medical History: Reports Hx Arthritis, Reports Hx Musculoskeletal Deformity, Reports Hx Musculoskeletal Trauma Past Surgical History: Reports: Hx Breast Surgery, Hx Cholecystectomy, Hx Hysterectomy - Immunizations Hx Diphtheria, Pertussis, Tetanus Vaccination: Yes Hx Pneumococcal Vaccination: 07/17/13 Vertical Provider Document - CONSTITUTIONAL Agree With Documented VS: Yes Exam Limitations: No Limitations General Appearance: WD/WN Notes: MEDICATIONS: I agree with the patient medications as charted by the RN. ALLERGIES: I agree with the allergies as charted by the RN. PAST MEDICAL HISTORY/PAST SURGICAL HISTORY: Reviewed and agree as charted by RN. SOCIAL HISTORY: Reviewed and agree as charted by RN. FAMILY HISTORY: No significant familial comorbid conditions directly related to patient complaint EXAM: Reviewed vital signs as charted by RN. PHYSICAL EXAMINATION: reviewed vital signs by RN GENERAL: Well-appearing, well-nourished and in no acute distress. HEAD: Atraumatic, normocephalic. EYES: Pupils equal round and reactive to light, extraocular movements intact, conjunctiva are normal. ENT: Nares patent, oropharynx clear without exudates. Moist mucous membranes. NECK: Normal range of motion, supple without lymphadenopathy LUNGS: Breath sounds clear to auscultation bilaterally and equal. No wheezes rales or rhonchi. HEART: Regular rate and rhythm without murmurs ABDOMEN: Soft, nontender, nondistended abdomen. No guarding, no rebound. No masses appreciated. Female : deferred Musculoskeletal: Pain with flexion and extension at 30 degrees, negative straight leg test on left. Normal hip rotation. DTR +2 in BLE equally. Strength 5 out of 5 both distally and proximally to bilateral lower extremities normal motor and sensory function in BLE equally. Distal pulses + 2 BLE equally. Noted paraspinal tenderness near L2 and L3. Strength 5 out of 5 in bilateral lower extremities equally. no spinal tenderness. No CVA tenderness bilaterally. Femoral pulses + 2 bilaterally and equally. No abrasions, scars, lacerations, ecchymosis of any recent trauma. normal gait. NEUROLOGICAL: Cranial nerves grossly intact. Normal speech, normal gait. Normal sensory, motor exams PSYCH: Normal mood, normal affect. SKIN: Warm, Dry, normal turgor, no rashes or lesions noted. - INFECTION CONTROL TRAVEL OUTSIDE OF THE [place] IN LAST 30 DAYS: No Course - Re-evaluation Re-evalutation: 07/27/20 16:14 Afebrile, slightly tachycardic patient states this is due to being in pain at vitals otherwise stable. Patient given 60 mg of Toradol IM and 10 mg of Decadron IM. Advised patient that I wanted her to stay for another 20 to 30 minutes to make sure her heart rate goes down, she states that she did not want to stay. I advised that I would not discharge patient unless her heart rate had gone down otherwise she may need further interventions. Patient refused to stay. After performing a Medical Screening Examination, I spoke with the patient at length in regards to leaving the hospital against medical advice. I do not believe the patient should leave but the patient is alert oriented x4, understands the risks and benefits of staying and leaving including disability and . Pt understands that he can return at any time for further care and is more than welcome to do so. Pt verbalizes this understanding. - Vital Signs Vital signs: Temp Pulse Resp BP Pulse Ox 97.2 F 112 H 18 149/56 H 97 07/27/20 13:13 07/27/20 13:13 07/27/20 13:13 07/27/20 13:13 07/27/20 13:13 Discharge - Discharge Clinical Impression: Left-sided low back pain with sciatica Condition: Stable Disposition: AGAINST MEDICAL ADVICE Instructions: Low Back Pain ([facility]), Muscle Strain ([facility]), Pain Medication Injection ([facility]), Warm Packs ([facility]) Additional Instructions: You received 60 mg of Toradol IM and 10 mg of Decadron IM. Please apply warm compress to site 20 minutes on 20 minutes off several times a day. 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 Take naproxen as directed, you can alternate with Tylenol. Follow-up with your primary care within the next 24 to 48 hours. Return immediately for any new or worsening symptoms. Follow up with primary care provider, call tomorrow to make followup appointment. Prescriptions: Naproxen 500 mg PO BID #10 tablet Referrals: GONZALO BERNARD MD [Primary Care Provider] - Follow up as needed JESSICA ESPINOZA DO [ACTIVE STAFF] - Follow up as needed
[2020-07-27] MEDS ORDERED: DEXAMETHASONE SOD PHOSPHATE INJ 4 MG/1 ML VIAL ONE (14:53)
== END 2020-07-27 15:10 | disposition left against medical advice (07) ==
LOC: ER 13:08
DX: M54.42 Lumbago with sciatica, left side (principal); E78.00 Pure hypercholesterolemia, unspecified; I10 Essential (primary) hypertension; E11.9 Type 2 diabetes mellitus without complications
CPT/HCPCS: 99284; 96372; J1885; J1100

== ENCOUNTER 2020-07-30 10:17 | Emergency (ER) | payer MEDICARE ==
[2020-07-30 10:42] VITALS: BP 153/76
[2020-07-30] MEDS ORDERED: OXYCODONE-ACETAMINOPHEN 5-325 MG TABLET PO ONE (11:15)
--- NOTE | 2020-07-30 11:15 | ER Document Report ---
ED General - General Chief Complaint: Leg Pain Stated Complaint: LEG PAIN Time Seen by Provider: 07/30/20 10:54 Primary Care Provider: GONZALO BERNARD MD [Primary Care Provider] - Follow up as needed Notes: Patient presents with chronic left side pain neck arm shoulder side abdomen hip buttock and leg all the way down to the toes for over a year. Has been seen several times for degenerative disc disease has had MRIs but when I asked her what disease she has what she is being treated for and how she is not able to tell me because she does not remember. She has been seen here a few times for the same thing evaluated fully given some kind of shot of pain medicine and discharged. She is unsatisfied with her primary care doctor as she he has not been able to solve her problem or send her to the appropriate resources. She states that she is to painful to do physical therapy this has not. She has no unilateral numbness or weakness no bowel or bladder incontinence and no fever. TRAVEL OUTSIDE OF THE [place] IN LAST 30 DAYS: No - Related Data Allergies/Adverse Reactions: Sulfa (Sulfonamide Antibiotics) Allergy (Verified 07/30/20 10:48) Past Medical History - General Information source: Patient - Social History Smoking Status: Current Every Day Smoker Chew tobacco use (# tins/day): No Drug Abuse: None Family History: Reviewed & Not Pertinent Patient has homicidal ideation: No - Past Medical History Cardiac Medical History: Reports: Hx Hypercholesterolemia, Hx Hypertension Pulmonary Medical History: Reports: Hx Asthma Denies: Hx Tuberculosis Neurological Medical History: Denies: Hx Seizures Endocrine Medical History: Reports: Hx Diabetes Mellitus Type 1, Hx Diabetes Mellitus Type 2 Renal/ Medical History: Denies: Hx Peritoneal Dialysis Musculoskeletal Medical History: Reports Hx Arthritis, Reports Hx Musculoskeletal Deformity, Reports Hx Musculoskeletal Trauma Past Surgical History: Reports: Hx Breast Surgery, Hx Cholecystectomy, Hx Hysterectomy, Hx Orthopedic Surgery - back - Immunizations Hx Diphtheria, Pertussis, Tetanus Vaccination: Yes Hx Pneumococcal Vaccination: 07/17/13 Review of Systems - Review of Systems Notes: REVIEW OF SYSTEMS GEN: Denies fever, chills, weight loss ENT: Denies sore throat, nasal discharge, ear pain EYES: Denies blurry vision, eye pain, discharge CV: Denies chest pain, palpitations, edema RESP: Denies cough, shortness of breath, wheezing GI: Denies abdominal pain, nausea, vomiting, diarrhea MSK: Body pain, SKIN: Denies rash, skin lesions LYMPH: Denies swollen glands/lymph nodes NEURO: Denies headache, focal weakness or numbness, dizziness PSYCH: Denies depression, suicidal or homicidal ideation PHYSICAL EXAMINATION General: No acute distress, well-nourished Head: Atraumatic, normocephalic ENT: Mouth normal, oropharynx moist, no exudates or tonsillar enlargement Eyes: Conjunctiva normal, pupils equal, lids normal Neck: No JVD, supple, no guarding CVS: Normal rate, regular rhythm, no murmurs Resp: No resp distress, equal and normal breath sounds bilaterally GI: Nondistended, soft, no tenderness to palpation, no rebound or guarding Ext: No deformities, no edema, normal range of motion in upper and lower ext. Tender throughout the left upper extremity, from shoulder to fingers left lower extremity from buttocks to toes although there is no appreciable swelling fluctuance or deformities. Resists range of motion testing Back: No CVA or midline TTP Skin: No rash, warm Lymphatic: No lymphadeopathy noted Neuro: Awake, alert. Face symmetric. GCS 15. 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, effort dependent weakness throughout which seems to be pain related normal reflexes upper and lower left Physical Exam - Vital signs Vitals: Temp Pulse Resp BP Pulse Ox 98.4 F 104 H 18 153/76 H 96 07/30/20 10:39 07/30/20 10:39 07/30/20 10:39 07/30/20 10:39 07/30/20 10:39 Course - Re-evaluation Re-evalutation: 07/30/20 11:15 Chronic unilateral side pain likely secondary to spinal stenosis although there is no sign of cauda equina shingles stroke or other acute pathology Will be given a dose of pain medicine in the ED and discharged to follow-up with primary care and possibly pain management I have discussed with the patient there likely diagnosis, aftercare plan, follow-up plans and my usual and customary return precautions. They verbalized understanding of this. - Vital Signs Vital signs: Temp Pulse Resp BP Pulse Ox 98.4 F 104 H 18 153/76 H 96 07/30/20 10:39 07/30/20 10:39 07/30/20 10:39 07/30/20 10:39 07/30/20 10:39 Discharge - Discharge Clinical Impression: Pain of left side of body Condition: Good Disposition: HOME, SELF-CARE Instructions: Chronic Pain Control ([facility]) Referrals: GONZALO BERNARD MD [Primary Care Provider] - Follow up as needed
== END 2020-07-30 11:27 | disposition home or self-care (01) ==
LOC: ER 10:17
DX: M79.605 Pain in left leg (principal); M79.10 Myalgia, unspecified site; E78.00 Pure hypercholesterolemia, unspecified; I10 Essential (primary) hypertension; E11.9 Type 2 diabetes mellitus without complications; Z90.49 Acquired absence of other specified parts of digestive tract
CPT/HCPCS: 99283; A9270

== ENCOUNTER 2020-08-02 06:55 | Emergency (ER) | payer MEDICARE ==
--- NOTE | 2020-08-02 08:13 | ER Document Report ---
ED General - General Chief Complaint: Leg Pain Stated Complaint: LEG PAIN Time Seen by Provider: 08/02/20 08:09 Primary Care Provider: GONZALO BERNARD MD [Primary Care Provider] - Follow up as needed TRAVEL OUTSIDE OF THE [place] IN LAST 30 DAYS: No - HPI Notes: 60-year-old female with past medical history for hypertension and diabetes to the emergency department with complaints of chronic low back pain that radiates down the left leg for well over a year. This is her fourth visit in the emergency department this month for the same complaint. She denies any nausea or vomiting, fevers or chills, IV drug abuse, saddle paresthesia, bladder or bowel incontinence, urinary retention. She sees Dr. Bernard for her primary care and has been referred for pain management. She was in pain management in September 2019 but apparently did not bring her pill pop bottles so she was dismissed from the practice. She does have an appointment with [facility] pain management on August 11 at 1 PM. She states that she is just so uncomfortable that she has to come to the emergency department for pain management. She denies any other complaints or recent falls. She denies any abdominal pain, chest pain, shortness of breath, or any other complaints this morning. - Related Data Allergies/Adverse Reactions: Sulfa (Sulfonamide Antibiotics) Allergy (Verified 07/30/20 10:48) Past Medical History - General Information source: Patient - Social History Smoking Status: Current Every Day Smoker Frequency of alcohol use: None Drug Abuse: None Lives with: Spouse/Significant other Family History: Reviewed & Not Pertinent Patient has homicidal ideation: No - Past Medical History Cardiac Medical History: Reports: Hx Hypercholesterolemia, Hx Hypertension Pulmonary Medical History: Reports: Hx Asthma Denies: Hx Tuberculosis Neurological Medical History: Denies: Hx Seizures Endocrine Medical History: Reports: Hx Diabetes Mellitus Type 1, Hx Diabetes Mellitus Type 2 Renal/ Medical History: Denies: Hx Peritoneal Dialysis Musculoskeletal Medical History: Reports Hx Arthritis, Reports Hx Musculoskeletal Deformity, Reports Hx Musculoskeletal Trauma Past Surgical History: Reports: Hx Breast Surgery, Hx Cholecystectomy, Hx Hysterectomy, Hx Orthopedic Surgery - back - Immunizations Hx Diphtheria, Pertussis, Tetanus Vaccination: Yes Hx Pneumococcal Vaccination: 07/17/13 Review of Systems - Review of Systems Constitutional: denies: Chills, Diaphoresis, Fever EENT: No symptoms reported Cardiovascular: denies: Chest pain, Palpitations, Dizziness, Lightheaded Respiratory: denies: Cough, Short of breath Gastrointestinal: denies: Abdominal pain, Diarrhea, Nausea, Vomiting Genitourinary: denies: Incontinence, Urgency, Retention Musculoskeletal: Back pain, Other - Left leg pain Skin: Other - Patient reports pain to a old surgical scar where she had an abscess drained that a year ago as well. Hematologic/Lymphatic: No symptoms reported Neurological/Psychological: No symptoms reported -: Yes All other systems reviewed and negative Physical Exam - Vital signs Vitals: Temp Pulse Resp BP Pulse Ox 98.1 F 110 H 18 140/85 H 98 08/02/20 07:09 08/02/20 07:09 08/02/20 07:09 08/02/20 07:09 08/02/20 07:09 Interpretation: Tachycardic Notes: Mildly tachycardic at 110. Review of her past visits with us she is always slightly tachycardic. Suspect this is due to pain. - General General appearance: Appears well, Alert In distress: Mild Notes: Mild pain distress, patient is tearful - HEENT Head: Normocephalic, Atraumatic Eyes: Normal Pupils: PERRL Neck: Normal, Supple. No: Lymphadenopathy - Respiratory Respiratory status: No respiratory distress Chest status: Nontender Breath sounds: Normal. No: Rales, Rhonchi, Wheezing Chest palpation: Normal - Cardiovascular Rhythm: Regular Heart sounds: Normal auscultation Murmur: No Notes: No leg swelling - Abdominal Inspection: Normal Distension: No distension Bowel sounds: Normal Tenderness: Nontender. No: McBurney's point, Jones's sign, Guarding, Rebound Organomegaly: No organomegaly - Back Back: Normal, Tender - There is tenderness to palpation to the entire midline lumbar spine with no step-off or deformity. Negative straight leg raise bilaterally. Reflexes are intact. - Extremities General upper extremity: Normal inspection, Nontender, Normal color, Normal ROM, Normal temperature General lower extremity: Normal inspection, Nontender, Normal color, Normal ROM, Normal temperature, Normal weight bearing. No: Radha's sign - Neurological Neuro grossly intact: Yes Cognition: Normal Orientation: AAOx4 [place] Coma Scale Eye Opening: Spontaneous [place] Coma Scale Verbal: Oriented [place] Coma Scale Motor: Obeys Commands [place] Coma Scale Total: 15 Speech: Normal Cranial nerves: Normal Cerebellar coordination: Normal Motor strength normal: LUE, RUE, LLE, RLE Additional motor exam normals: Equal baseball winder Sensory: Normal - Psychological Associated symptoms: Normal mood, Tearful - Appropriately tearful given her history of chronic pain. She is easily consoled. She is alert and oriented x4 - Skin Skin Temperature: Warm Skin Moisture: Dry Skin Color: Normal Skin irregularity: other - To the back of the left leg just below the buttocks there is an old surgical scar from an abscess being drained. Slightly tender over the scar but there is no evidence for active or new infection. There is noted scar tissue. There is no streaking lymphangitis or any necrosis or desquamation here. Course - Re-evaluation Re-evalutation: 08/02/20 Impression: Chronic back pain and chronic leg pain consistent with sciatica. Patient has had a gap in her pain management. She has been utilizing the ER for this. We will give her a shot of Toradol and Harrison here in the department but have advised that I cannot write her for controlled substances for her chronic pain. She does have an appointment with pain management on August 11. I have urged her to keep this appointment without fail. Will write for NSAIDs and muscle relaxants to go home with. She has had multiple visits for the same in the past month. No evidence to suggest cauda equina. Patient agrees with the plan. - Vital Signs Vital signs: Temp Pulse Resp BP Pulse Ox 98.1 F 110 H 18 140/85 H 98 08/02/20 07:09 08/02/20 07:09 08/02/20 07:09 08/02/20 07:09 08/02/20 07:09 Discharge - Discharge Clinical Impression: Sciatica of left side Chronic pain Qualifiers: Chronic pain type: other chronic pain Qualified Code(s): G89.29 - Other chronic pain Low back pain Qualifiers: Chronicity: chronic Back pain laterality: midline Sciatica presence: with sciatica Sciatica laterality: sciatica of left side Qualified Code(s): M54.42 - Lumbago with sciatica, left side; G89.29 - Other chronic pain Condition: Stable Disposition: HOME, SELF-CARE Instructions: Sciatica ([facility]), Chronic Back Pain ([facility]) Additional Instructions: Please follow-up with [facility] pain management on August 11 as scheduled for pain management. Return if you have any worsening symptoms. Rest at home. Prescriptions: Naproxen [Naprosyn 375 Mg Tablet] 375 mg PO BID #20 tablet Methocarbamol [Robaxin 500 mg Tablet] 500 mg PO QID PRN #20 tablet PRN Reason: Referrals: GONZALO BERNARD MD [Primary Care Provider] - Follow up in 3-5 days
[2020-08-02] MEDS ORDERED: KETOROLAC TROMETHAMINE 60 MG/2 ML SDV IM ONE (08:26)
[2020-08-02] MEDS ORDERED: HYDROCODONE/ACETAMINOPHEN 5-325 MG TABLET PO ONE (08:26)
[2020-08-02 08:50] VITALS: BP 154/93
== END 2020-08-02 08:50 | disposition home or self-care (01) ==
LOC: ER 06:55
DX: M54.42 Lumbago with sciatica, left side (principal); G89.29 Other chronic pain; F17.200 Nicotine dependence, unspecified, uncomplicated; I10 Essential (primary) hypertension; E11.9 Type 2 diabetes mellitus without complications; E78.00 Pure hypercholesterolemia, unspecified; Z88.2 Allergy status to sulfonamides
CPT/HCPCS: 99284; 96372; J1885; A9270

== ENCOUNTER 2020-08-18 13:11 | Emergency (ER) | payer MEDICARE ==
[2020-08-18 13:33] VITALS: BP 135/90
--- NOTE | 2020-08-18 13:55 | ER Document Report ---
ED Medical Screen (RME) - General Chief Complaint: Back Pain Stated Complaint: LEG PAIN, BACK PAIN Time Seen by Provider: 08/18/20 13:52 Primary Care Provider: GONZALO BERNARD MD [Primary Care Provider] - Follow up as needed Mode of Arrival: Ambulatory Information source: Patient Notes: 60-year-old female presents to ED for chronic back pain. She states that Dr. Bernard does not treat her back pain and she was going to pain management and she and the nurse practitioner did not see add I said now she does not have any pain management medications as they have released her from the practice. She is here today for increased pain in her back running down her legs. We will get x- rays and urine and have her seen by one of the providers. I have greeted and performed a rapid initial assessment of this patient. A comprehensive ED assessment and evaluation of the patient, analysis of test results and completion of medical decision making process will be conducted by an additional ED providers. TRAVEL OUTSIDE OF THE [place] IN LAST 30 DAYS: No - Related Data Allergies/Adverse Reactions: Sulfa (Sulfonamide Antibiotics) Allergy (Verified 07/30/20 10:48) Past Medical History - Past Medical History Cardiac Medical History: Reports: Hx Hypercholesterolemia, Hx Hypertension Pulmonary Medical History: Reports: Hx Asthma Denies: Hx Tuberculosis Neurological Medical History: Denies: Hx Seizures Endocrine Medical History: Reports: Hx Diabetes Mellitus Type 1, Hx Diabetes Mellitus Type 2 Renal/ Medical History: Denies: Hx Peritoneal Dialysis Musculoskeltal Medical History: Reports Hx Arthritis, Reports Hx Musculoskeletal Deformity, Reports Hx Musculoskeletal Trauma Past Surgical History: Reports: Hx Breast Surgery, Hx Cholecystectomy, Hx Hysterectomy, Hx Orthopedic Surgery - back - Immunizations Hx Diphtheria, Pertussis, Tetanus Vaccination: Yes Physical Exam - Vital signs Vitals: Temp Pulse Resp BP Pulse Ox 98.7 F 102 H 16 135/90 H 97 08/18/20 13:31 08/18/20 13:31 08/18/20 13:31 08/18/20 13:31 08/18/20 13:31 Course - Vital Signs Vital signs: Temp Pulse Resp BP Pulse Ox 98.7 F 102 H 16 135/90 H 97 08/18/20 13:31 08/18/20 13:31 08/18/20 13:31 08/18/20 13:31 08/18/20 13:31 Doctor's Discharge - Discharge Referrals: GONZALO BERNARD MD [Primary Care Provider] - Follow up as needed
[2020-08-18 14:48] LABS: APPEARANCE,URINE CLEAR; GLUCOSE, URINE >=1000 mg/dL (NEGATIVE)
[2020-08-18 14:49] LABS: ADD MANUAL MICROSCOPIC YES; BILIRUBIN,URINE NEGATIVE (NEGATIVE); KETONES,URINE NEGATIVE (NEGATIVE); LEUKOCYTE ESTERASE,URINE NEGATIVE (NEGATIVE); NITRITE,URINE NEGATIVE (NEGATIVE); PROTEIN,URINE NEGATIVE (NEGATIVE); URINE SPECIFIC GRAVITY 1.025; UROBILINOGEN,URINE NEGATIVE mg/dL (<2.0)
[2020-08-18 14:50] LABS: COLOR,URINE STRAW
[2020-08-18] MEDS ORDERED: CEPHALEXIN 500 MG CAPSULE PO ONE (14:50)
[2020-08-18 14:51] LABS: BACTERIA,URINE TRACE /HPF; RBC,URINE NONE SEEN /HPF; WBC,URINE NONE SEEN /HPF
--- NOTE | 2020-08-18 14:54 | RADIOLOGY REPORT (SQ) ---
EXAM DESCRIPTION: L SPINE WHOLE IMAGES COMPLETED DATE/TIME: 08/18/2020 2:33 pm REASON FOR STUDY: low back pain radiates both legs COMPARISON: None. NUMBER OF VIEWS: Five views including obliques. TECHNIQUE: AP, lateral, oblique, and sacral radiographic images acquired of the lumbar spine. LIMITATIONS: None. FINDINGS: MINERALIZATION: Normal. SEGMENTATION: Normal. No transitional anatomy. ALIGNMENT: Normal. VERTEBRAE: Maintained height. No fracture or worrisome bone lesion. DISCS: Multilevel disc space narrowing with osteophytes. POSTERIOR ELEMENTS: Pedicles and facets are intact. No pars defect or posterior arch defects. Facet arthropathy is present. HARDWARE: None in the spine. PARASPINAL SOFT TISSUES: Normal. PELVIS: Intact as visualized. No fractures or worrisome bone lesions. SI joints intact. OTHER: No other significant finding. IMPRESSION: Multilevel spondylotic changes most significantly affecting the L2/3 level. No acute fi ndings. TECHNICAL DOCUMENTATION: JOB ID: [id number] 2010 [employer]- All Rights Reserved Reading location - IP/workstation name: [email or web address]
--- NOTE | 2020-08-18 15:09 | ER Document Report ---
ED General - General Chief Complaint: Back Pain Stated Complaint: LEG PAIN, BACK PAIN Time Seen by Provider: 08/18/20 13:52 Primary Care Provider: GONZALO BERNARD MD [Primary Care Provider] - Follow up as needed Mode of Arrival: Ambulatory Notes: 60-year-old lady with chronic back pain with multiple ED visits has been fired from her pain management clinic because "we did not see eye to eye" and says that Dr. Cuellar "does nothing for my pain" that said she is not on any medications. Her pain is chronic from her neck down her back to both legs has been unchanged for several months if not years without numbness tingling that is new or different incontinence fever injection drug use. She is diabetic and has had necrotizing and tissue infections but denies any skin changes this time. TRAVEL OUTSIDE OF THE [place] IN LAST 30 DAYS: No - Related Data Allergies/Adverse Reactions: Sulfa (Sulfonamide Antibiotics) Allergy (Verified 07/30/20 10:48) Past Medical History - General Information source: Patient - Social History Smoking Status: Unknown if Ever Smoked Family History: Reviewed & Not Pertinent - Past Medical History Cardiac Medical History: Reports: Hx Hypercholesterolemia, Hx Hypertension Pulmonary Medical History: Reports: Hx Asthma Denies: Hx Tuberculosis Neurological Medical History: Denies: Hx Seizures Endocrine Medical History: Reports: Hx Diabetes Mellitus Type 1, Hx Diabetes Mellitus Type 2 Renal/ Medical History: Denies: Hx Peritoneal Dialysis Musculoskeletal Medical History: Reports Hx Arthritis, Reports Hx Musculoskeletal Deformity, Reports Hx Musculoskeletal Trauma Past Surgical History: Reports: Hx Breast Surgery, Hx Cholecystectomy, Hx Hysterectomy, Hx Orthopedic Surgery - back - Immunizations Hx Diphtheria, Pertussis, Tetanus Vaccination: Yes Hx Pneumococcal Vaccination: 07/17/13 Review of Systems - Review of Systems Notes: REVIEW OF SYSTEMS GEN: Denies fever, chills, weight loss ENT: Denies sore throat, nasal discharge, ear pain EYES: Denies blurry vision, eye pain, discharge CV: Denies chest pain, palpitations, edema RESP: Denies cough, shortness of breath, wheezing GI: Denies abdominal pain, nausea, vomiting, diarrhea MSK: Pain SKIN: Denies rash, skin lesions LYMPH: Denies swollen glands/lymph nodes NEURO: Denies headache, focal weakness or numbness, dizziness PSYCH: Denies depression, suicidal or homicidal ideation PHYSICAL EXAMINATION General: No acute distress, well-nourished Head: Atraumatic, normocephalic ENT: Mouth normal, oropharynx moist, no exudates or tonsillar enlargement Eyes: Conjunctiva normal, pupils equal, lids normal Neck: No JVD, supple, no guarding CVS: Normal rate, regular rhythm, no murmurs Resp: No resp distress, equal and normal breath sounds bilaterally GI: Nondistended, soft, no tenderness to palpation, no rebound or guarding Ext: No deformities, no edema, normal range of motion in upper and lower ext Back: No CVA or midline TTP Skin: No rash, warm Lymphatic: No lymphadeopathy noted Neuro: Awake, alert. Face symmetric. GCS 15. Effort dependent weakness in both lower extremities but can gets a 5 out of 5 both ankles knees and is able to ambulate well. Normal sensation in both sides. Physical Exam - Vital signs Vitals: Temp Pulse Resp BP Pulse Ox 98.7 F 102 H 16 135/90 H 97 08/18/20 13:31 08/18/20 13:31 08/18/20 13:31 08/18/20 13:31 08/18/20 13:31 Course - Re-evaluation Re-evalutation: 08/18/20 15:09 Back pain no change from prior multiple visits to multiple providers Lidocaine Robaxin follow-up primary No evidence of cauda equina or neurologic involvement soft tissue infection or need for imaging or work-up other than what is been done in triage today which shows lumbar x-rays with arthritis and a negative urinalysis I have discussed with the patient there likely diagnosis, aftercare plan, follow-up plans and my usual and customary return precautions. They verbalized understanding of this. Please note that clinical decision making for this patient was made during the 2019 pandemic of novel coronavirus which caused a significant strain on the healthcare system including at this particular facility. Criteria for admission, discharge and level of care decisions as well as treatment decisions have necessarily changed. - Vital Signs Vital signs: Temp Pulse Resp BP Pulse Ox 98.7 F 102 H 16 135/90 H 97 08/18/20 13:31 08/18/20 13:31 08/18/20 13:31 08/18/20 13:31 08/18/20 13:31 - Laboratory Results Laboratory Results Interpreted: 08/18/20 14:10 Urine Glucose (UA) >=1000 H Urine Ascorbic Acid 40 H Critical Laboratory Results Reviewed: No Critical Results - Radiology Results Critical Radiology Results Reviewed: No Critical Results Discharge - Discharge Clinical Impression: Chronic back pain Qualifiers: Back pain location: low back pain Back pain laterality: bilateral Sciatica presence: with sciatica Sciatica laterality: bilateral sciatica Qualified Code(s): M54.42 - Lumbago with sciatica, left side; M54.41 - Lumbago with sciatica, right side; G89.29 - Other chronic pain Condition: Good Disposition: HOME, SELF-CARE Instructions: Ice Packs ([facility]), Low Back Pain ([facility]) Additional Instructions: We discussed your pain is now a chronic problem and needs to be followed up by a different pain management clinic or your primary care doctor Prescriptions: Lidocaine [Lidoderm 5% (700 mg) Transdermal Patch] 1 patch TP DAILY #30 adh..patch Methocarbamol [Robaxin 750 mg Tablet] 750 mg PO ASDIR PRN #40 tablet PRN Reason: Referrals: GONZALO BERNARD MD [Primary Care Provider] - Follow up as needed
== END 2020-08-18 15:10 | disposition home or self-care (01) ==
LOC: ER 13:11
DX: M54.42 Lumbago with sciatica, left side (principal); M54.41 Lumbago with sciatica, right side; G89.29 Other chronic pain; M54.9 Dorsalgia, unspecified; M54.2 Cervicalgia; M79.604 Pain in right leg; M79.605 Pain in left leg; Z88.2 Allergy status to sulfonamides; I10 Essential (primary) hypertension; J45.909 Unspecified asthma, uncomplicated
CPT/HCPCS: 72110; 81001; 99284